=== PATIENT | male | born 1985 | race Caucasian/White ===

== ENCOUNTER 2020-10-19 22:28 | Emergency (ER) | payer MEDICAID, SELFPAY ==
[2020-10-19 22:33] VITALS: BP 134/57; PULSE 100; RESP 16; TEMP 36.7; O2SAT 98; BMI 64.0
--- NOTE | 2020-10-19 23:48 | ED.OVERDOSE ---
HPI - Overdose General Chief Complaint: Overdose Stated Complaint: OVERDOSE Time Seen by Provider: 10/19/20 23:46 Source: patient and EMS Mode of arrival: EMS Limitations: no limitations History of Present Illness HPI Narrative: Patient is brought to the emergency room for an accidental overdose. Patient was using heroin earlier today. Patient does doff, his friends panicked amd gave him Narcan. Patient woke up immediately. Patient was brought by EMS to the emergency room. Patient arrives awake, alert, calm and cooperative. Patient states it was an accident, denies suicidal homicidal ideation. complaint: accidental overdose Related Data Allergies Allergy/AdvReac Type Severity Reaction Status Date / Time No Known Allergies Allergy Unverified 02/01/20 19:18 [No Known Allergies*] Review of Systems Review of Systems: Constitutional : No Weight loss, No Fever, No Chills, No Night Sweats, No Fatigue, No Malaise ENT/Mouth : No Hearing loss, No Ear Pain, No Nasal Congestion, No Sinus Pain, No Hoarseness, No sore throat, No Rhinorrhea, No Swallowing Difficulty Eyes: No Eye Pain, No Swelling, No Redness, No Foreign Body, No Discharge, No Vision Changes Cardiovascular : No Chest Pain, No SOB, No Dyspnea on Exertion, No Orthopnea, No Edema, No Palpitations Respiratory : No Cough, No Sputum, No Wheezing, No Smoke Exposure, No Dyspnea Gastrointestinal : No Nausea, No Vomiting, No Diarrhea, No Constipation, No abdominal Pain, No Hematochezia, No Melena Genitourinary : no irregular bleeding, No Dysuria, No Urinary Frequency, No Hematuria, No Urinary Incontinence, No Urgency, No Flank Pain, No Urinary Flow Changes, No Hesitancy Musculoskeletal : No joint pain, No Myalgias, No Joint Swelling Skin : No Skin Lesions, No rash Neuro : No Weakness, No Numbness, No Paresthesias, No Loss of Consciousness, No Dizziness, No Headache Psych : No Anxiety/Panic, No Depression, No SI/HI/AH/VH, No Social Issues, Heme/Lymph: No Bruising, No Bleeding,No Lymphadenopathy Endocrine : No Polyuria, No Polydipsia, No Temperature Intolerance PMFSH Past Medical History Medical History IV drug user No known health problems Social History Social History Advance Directives: No Advance Directives Information Provided: No Physical Exam Vital Signs: Vital Signs: Last Vital Signs Temp 98.0 F 10/19/20 22:33 Pulse 100 10/19/20 22:33 Resp 16 10/19/20 22:33 BP 134/57 L 10/19/20 22:33 Pulse Ox 98 10/19/20 22:33 Body Mass Index 64.0 Appearance: Alert. Oriented X3. No acute distress. Eyes: Pupils equal, round and reactive to light. ENT: Pharynx normal. Neck: Normal inspection. Neck supple. No lymph nodes noted. No crepitus CVS: Normal heart rate and rhythm. Pulses normal. Normal S1 and S2 Respiratory: No respiratory distress. Breath sounds normal. No Wheezing. No rales Abdomen: Soft and nontender. No rigidity. No distention. good BS x4 Skin: Skin warm and dry. Normal skin color. Normal skin turgor. Extremities: No lower extremity edema. No lower extremity edema. No Lacerations. No Rash Neuro: Oriented X 3. No motor deficit. No sensory deficit. Moving all extermities. No slurred speech. Course Course Course Narrative: Patient has been in the emergency room awake, alert and oriented x3, steady gait, p.o. challenged, oxygen saturation 98% on room air, vital stable. Patient is ready for discharge. Patient was provided with home Narcan Discharge Plan Discharge Clinical Impression: Drug overdose Qualifiers: Encounter type: initial encounter Injury intent: accidental or unintentional Qualified Code(s): T50.901A - Poisoning by unspecified drugs, medicaments and biological substances, accidental (unintentional), initial encounter Patient Disposition: Home, Self-Care Instructions: Adult Overdose (ED) Additional Instructions: Please stop using drugs. Please follow-up with your primary care physician tomorrow. If you have any worsening or new symptoms, please return to the emergency room or call 911
== END 2020-10-20 00:08 | disposition home or self-care (01) ==
PROVIDERS: Emergency Provider Emergency Medicine; PCP Family Medicine
DX: T40.1X1A Poisoning by heroin, accidental (unintentional), initial encounter (principal); F11.10 Opioid abuse, uncomplicated; Y92.9 Unspecified place or not applicable; Z71.51 Drug abuse counseling and surveillance of drug abuser
CPT/HCPCS: 99284

== ENCOUNTER 2020-10-28 15:49 | Emergency (ER) | payer MEDICAID, SELFPAY ==
[2020-10-28 16:12] VITALS: BP 149/93; PULSE 93; RESP 20; TEMP 36.8; O2SAT 100; BMI 24.4
--- NOTE | 2020-10-28 17:32 | ED_ITS ---
HPI - Psych General Chief Complaint: Psychiatric Symptoms Stated Complaint: SI Time Seen by Provider: 10/28/20 17:11 Source: patient Mode of arrival: ambulatory Limitations: no limitations History of Present Illness HPI Narrative: Patient presetned to the ED for SI/homicidal ideation. Patient states he lost his psych meds and has been feeling down. Patient states his plan would be to overdose. Patient states he has no support outside of [facility]. Patient states he relapsed on drugs. Related Data Home Medications Medication Instructions Recorded Confirmed alprazolam 1 tab PO QID 10/28/20 10/28/20 buprenorphine-naloxone [Suboxone] 1 strip SUBLINGUAL BID 10/28/20 10/28/20 dextroamphetamine-amphetamine 1 tab PO BID 10/28/20 10/28/20 dextroamphetamine-amphetamine 1 cap PO DAILY 10/28/20 10/28/20 [Adderall XR] naproxen 1 tab PO BID PRN 10/28/20 10/28/20 Allergies Allergy/AdvReac Type Severity Reaction Status Date / Time No Known Allergies Allergy Unverified 02/01/20 19:18 [No Known Allergies*] Review of Systems Review of Systems: Yes all other systems are reviewed and are negative Constitutional: Constitutional: Reports as per HPI and Reports no additional constitutional complaints Eyes: Eyes: Reports as per HPI and Reports no additional eye complaints ENT: Reports system reviewed and no additional complaints, except as docu mented and Reports as per HPI Cardiovascular: Cardiovascular: Reports as per HPI and Reports no additional cardiovascular complaints Respiratory: Respiratory: Reports as per HPI and Reports no additional respiratory complaints Gastrointestinal: Gastrointestinal: Reports as per HPI and Reports no additional gastrointestinal complaints Genitourinary: Genitourinary: Reports no additional male genitourinary complaints and Reports as per HPI Musculoskeletal: Musculoskeletal: Reports no additional musculoskeletal complaints and Reports as per HPI Neurologic: Reports system reviewed and no additional complaints, except as documented and Reports as per HPI Psychiatric: Psychiatric: Reports no additional psychiatric complaints, Reports as per HPI and Reports suicidal ideation [facility] Past Medical History Medical History IV drug user No known health problems Social History Social History Alcohol intake: never Patient Tobacco Use Status: Current someday Tobacco user Smoked in Last 30 Days: Yes Use of substances other than those prescribed or required for medical reasons: Yes Substance Use Type: Heroin Substance Use Frequency: Chronic Longstanding Last Used Substance: Just Prior to Admission Advance Directives: No Advance Directives Information Provided: Yes Healthcare Proxy: No Guardian: No Physical Exam Vital Signs: Vital Signs: Last Vital Signs Temp 97.6 F 10/28/20 21:55 Pulse 75 10/28/20 21:55 Resp 16 10/29/20 00:41 BP 123/64 10/28/20 21:55 Pulse Ox 98 10/28/20 21:55 Body Mass Index 24.4 Const: General: cooperative, healthy appearing, comfortable, no acute distress, well developed, alert and awake Orientation/consciousness: patient oriented x3 HENMT: Head: Yes normal to inspection, Yes No palpable skull fracture present, Yes normocephalic and Yes atraumatic Eyes: General: appearance normal, both eyes and all related structures Neck: Neck: Yes normal visual inspection, Yes full ROM, Yes no lymphadenopathy, Yes no meningeal signs, Yes trachea midline, Yes supple and No tender Chest: Chest palpation & inspection: normal inspection of the chest and normal palpation of entire chest wall Resp: Effort & Inspection: normal respiratory effort and able to speak in complete sentences Auscultation: clear to auscultation bilaterally Cardio: Jugular venous distension: no JVD Heart sounds: S1 normal heart sound present and S2 normal heart sound present GI: Inspection: Yes normal to inspection and No abdominal wall ecchymosis Palpation (GI): Soft to palpation, not firm, nontender, no guarding and not rigid : General: No CVA tenderness and Yes no CVA tenderness Back/Spine/Pelvis: Back: no CVA tenderness, No CVA tenderness and No back tenderness Skin: General skin exam: no rashes or lesions noted and elasticity normal Neuro: General: patient oriented x3, no meningeal signs and CN's II-XI intact bilaterally Cranial nerves: Yes CN's II-XII intact bilaterally Extrem: General: Yes normal to inspection and Yes full ROM Psych: Appearance: grossly normal, well kempt and not disheveled Thought content: Suicidality present Course Course Course Narrative: Patient will have labs drawn and be evaluated by crisis Reevaluation(s) Reevaluation #1: Patient medically cleared. Patient will be bed search for psych inpatient. Time: 22:07 [facility] - Psych Lab Data Result diagrams: 10/28/20 17:52 10/28/20 17:52 Labs: Lab Results 10/28/20 10/28/20 10/28/20 Range/Units 17:52 17:52 17:52 WBC 12.1 H (4.8-10.8) X10*3/uL RBC 4.67 (4.60-5.80) X10*6/uL Hgb 13.8 L (14.0-18.0) g/dl Hct 42.3 (42-52) % MCV 90.6 (80-98) fL MCH 29.6 (27.0-33.0) pg MCHC 32.6 (31.0-36.0) g/dl RDW 12.3 (11.0-16.0) % Plt Count 289 (160-400) X10*3/uL MPV 9.8 (9.4-12.4) fL Immature Gran % (Auto) 0.4 (0.0-0.4) % Neut % (Auto) 80.4 H (45-73) % Lymph % (Auto) 10.7 L (20-40) % [place] % (Auto) 8.2 (2-11) % Eos % (Auto) 0.1 (0-4) % Baso % (Auto) 0.2 (0-2) % Lymph # (Auto) 1.3 (1.2-4.9) X10*3/uL [place] # (Auto) 1.0 (0.1-1.2) X10*3/uL Eos # (Auto) 0.0 (0.0-0.4) X10*3/uL Baso # (Auto) 0.0 (0.0-0.2) X10*3/uL Abs Immat Gran (auto) 0.05 H (0.00-0.03) X10*3/uL Absolute Neuts (auto) 9.7 H (2.0-8.3) X10*3/uL Absolute Nucleated RBC 0.000 (0.0-0.012) X10*3/uL Nucleated RBC % (auto) 0.0 (0.0-0.2) /100WBC Sodium 138 (135-145) mmol/L Potassium 3.7 (3.3-5.1) mmol/L Chloride 104 (96-108) mmol/L Carbon Dioxide 21 L (22-29) mmol/L Anion Gap 17 (12-20) BUN 10 (9-16) mg/dL Creatinine 0.93 (0.5-1.4) mg/dL Estim Creat Clear Calc 108.7 Estimated GFR > 60 Random Glucose 164 H (60-115) mg/dL Calcium 9.6 (8.4-10.2) mg/dL Total Bilirubin 1.0 (0.0-1.0) mg/dL Direct Bilirubin 0.4 (0.0-0.5) mg/dL AST 23 (5-37) U/L ALT 19 (0-40) U/L Alkaline Phosphatase 78 (39-117) U/L Total Protein 7.6 (6.5-8.0) g/dL Albumin 4.3 (3.5-5.0) g/dL Urine Color Urine Appearance Urine pH (5.0-8.0) Ur Specific [place] (1.005-1.025) Urine Protein (NEG-TRACE) MG/DL Urine Glucose (UA) (NEG) MG/DL Urine Ketones (NEG) MG/DL Urine Blood (NEG) Urine Nitrite (NEG) Ur Leukocyte Esterase (NEG) Urine Opiates Screen (Not Detect) Ur Barbiturates Screen (Not Detect) Ur Phencyclidine Scrn (Not Detect) Ur Amphetamines Screen (Not Detect) U Benzodiazepines Scrn (Not Detect) Urine Cocaine Screen (Not Detect) U Marijuana (THC) Screen (Not Detect) Ethyl Alcohol < 10 mg/dL COVID-19 (MADELEINE) (Negative) COVID-19 Clin Com 10/28/20 10/28/20 10/28/20 Range/Units 22:01 22:01 22:01 WBC (4.8-10.8) X10*3/uL RBC (4.60-5.80) X10*6/uL Hgb (14.0-18.0) g/dl Hct (42-52) % MCV (80-98) fL MCH (27.0-33.0) pg MCHC (31.0-36.0) g/dl RDW (11.0-16.0) % Plt Count (160-400) X10*3/uL MPV (9.4-12.4) fL Immature Gran % (Auto) (0.0-0.4) % Neut % (Auto) (45-73) % Lymph % (Auto) (20-40) % [place] % (Auto) (2-11) % Eos % (Auto) (0-4) % Baso % (Auto) (0-2) % Lymph # (Auto) (1.2-4.9) X10*3/uL [place] # (Auto) (0.1-1.2) X10*3/uL Eos # (Auto) (0.0-0.4) X10*3/uL Baso # (Auto) (0.0-0.2) X10*3/uL Abs Immat Gran (auto) (0.00-0.03) X10*3/uL Absolute Neuts (auto) (2.0-8.3) X10*3/uL Absolute Nucleated RBC (0.0-0.012) X10*3/uL Nucleated RBC % (auto) (0.0-0.2) /100WBC Sodium (135-145) mmol/L Potassium (3.3-5.1) mmol/L Chloride (96-108) mmol/L Carbon Dioxide (22-29) mmol/L Anion Gap (12-20) BUN (9-16) mg/dL Creatinine (0.5-1.4) mg/dL Estim Creat Clear Calc Estimated GFR Random Glucose (60-115) mg/dL Calcium (8.4-10.2) mg/dL Total Bilirubin (0.0-1.0) mg/dL Direct Bilirubin (0.0-0.5) mg/dL AST (5-37) U/L ALT (0-40) U/L Alkaline Phosphatase (39-117) U/L Total Protein (6.5-8.0) g/dL Albumin (3.5-5.0) g/dL Urine Color YELLOW Urine Appearance HAZY Urine pH 6.5 (5.0-8.0) Ur Specific [place] <= 1.005 (1.005-1.025) Urine Protein NEG (NEG-TRACE) MG/DL Urine Glucose (UA) NEG (NEG) MG/DL Urine Ketones NEG (NEG) MG/DL Urine Blood NEG (NEG) Urine Nitrite NEG (NEG) Ur Leukocyte Esterase NEG (NEG) Urine Opiates Screen POSITIVE H (Not Detect) Ur Barbiturates Screen Not Detected (Not Detect) Ur Phencyclidine Scrn Not Detected (Not Detect) Ur Amphetamines Screen Not Detected (Not Detect) U Benzodiazepines Scrn Not Detected (Not Detect) Urine Cocaine Screen POSITIVE H (Not Detect) U Marijuana (THC) Screen Not Detected (Not Detect) Ethyl Alcohol mg/dL COVID-19 (MADELEINE) Negative (Negative) COVID-19 Clin Com See Note Discharge Plan Discharge Prescriptions: No Action alprazolam 1 mg tablet 1 tab PO QID RF: 0 dextroamphetamine-amphetamine 30 mg tablet 1 tab PO BID RF: 0 dextroamphetamine-amphetamine [Adderall XR] 30 mg capsule,extended release 24hr 1 cap PO DAILY RF: 0 naproxen 500 mg tablet 1 tab PO BID PRN (Reason: Pain) RF: 0 buprenorphine-naloxone [Suboxone] 12-3 mg film 1 strip sublingual BID RF: 0
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
[2020-10-28 17:57] LABS: MANUAL DIFF FLAG NO
[2020-10-28 18:24] LABS: Basophils Percent Auto 0.2 % (0-2); Eosinophils Percent Auto 0.1 % (0-4); Hematocrit 42.3 % (42-52); Hemoglobin 13.8 g/dl (14.0-18.0); Imm Gran Abs Auto 0.05 X10*3/uL (0.00-0.03); Imm Gran Pct Auto 0.4 % (0.0-0.4); Lymphocytes Absolute Auto 1.3 X10*3/uL (1.2-4.9); Lymphocytes Percent Auto 10.7 % (20-40); Mean Corpuscular HGB Conc 32.6 g/dl (31.0-36.0); Mean Corpuscular Hemoglobin 29.6 pg (27.0-33.0); Mean Corpuscular Volume 90.6 fL (80-98); Mean Platelet Volume 9.8 fL (9.4-12.4); Monocytes Percent Auto 8.2 % (2-11); Neutrophils Absolute Auto 9.7 X10*3/uL (2.0-8.3); Neutrophils Percent Auto 80.4 % (45-73); Platelet Count 289 X10*3/uL (160-400); Red Blood Count 4.67 X10*6/uL (4.60-5.80); Red Cell Distribution Width 12.3 % (11.0-16.0); White Blood Count 12.1 X10*3/uL (4.8-10.8)
[2020-10-28 18:31] LABS: Ethanol < 10 mg/dL
[2020-10-28 18:37] LABS: Alanine Aminotransferase 19 U/L (0-40); Albumin Level 4.3 g/dL (3.5-5.0); Alkaline Phosphatase 78 U/L (39-117); Anion Gap 17 (12-20); Aspartate Amino Transferase 23 U/L (5-37); Bilirubin Direct 0.4 mg/dL (0.0-0.5); Blood Urea Nitrogen 10 mg/dL (9-16); Calcium 9.6 mg/dL (8.4-10.2); Carbon Dioxide 21 mmol/L (22-29); Chloride 104 mmol/L (96-108); Creatinine Clr Calc Pharmacy 108.7; Estimated Glomerular Filt Rate > 60; Glucose Random 164 mg/dL (60-115); Potassium 3.7 mmol/L (3.3-5.1); Sodium 138 mmol/L (135-145); Total Protein 7.6 g/dL (6.5-8.0)
[2020-10-28 21:55] VITALS: BP 123/64; PULSE 75; RESP 16; TEMP 36.4; O2SAT 98
[2020-10-28 22:27] LABS: COVID-19 Test Negative (Negative)
[2020-10-28 22:29] LABS: Glucose Urine UA NEG (NEG); Leukocyte Esterase Urine NEG (NEG); Nitrite Urine NEG (NEG); PH 6.5 (5.0-8.0); Specific Gravity - Urine <= 1.005 (1.005-1.025); Urine Blood NEG (NEG); Urine Ketones NEG (NEG); Urine Protein NEG (NEG-TRACE)
[2020-10-28 22:30] LABS: Appearance Urine HAZY; Color Urine YELLOW
--- NOTE | 2020-10-28 22:31 | MHC.CARE ---
Evaluation completed by CARE team, plan will be for inpt psychiatric placement. Pt is agreeable for treatment at this time, however due to his level of risk for harm to self he has been placed on a Sect 12a for containment pending psychiatric admission. Pt will presented for possible admission to [facility] inpt units in the morning.
--- NOTE | 2020-10-28 22:39 | PC.NURSE ---
PATIENT MEETING WITH CARE TEAM ZACH, PATIENT AGREEABLE FOR INPATIENT PSYCH PLACEMENT. SITTER CLOSE TO PATIENT DUE TO SELF HARM RISK.
[2020-10-28 22:57] LABS: Amphetamine Screen Urine Not Detected (Not Detect); Barbiturates, Urine Not Detected (Not Detect); Benzodiazepines Screen Urine Not Detected (Not Detect); Cannabinoid Screen Urine Not Detected (Not Detect); Cocaine Screen Urine POSITIVE (Not Detect); Opiate Screen Urine POSITIVE (Not Detect); Phencyclidine Screen Urine Not Detected (Not Detect)
[2020-10-28] MEDS: Ibuprofen 800 MG TABLET PO (23:09)
[2020-10-29] VITALS: RESP 16
[2020-10-29 00:41] VITALS: RESP 16
[2020-10-29] MEDS: ALPRAZolam 0.5 MG TABLET 1 MG PO ×3 (01:49→13:14)
--- NOTE | 2020-10-29 02:07 | PC.NURSE ---
PATIENT REPORTING ANXIETY ASKING FOR A XANAX, MOVED TO ROOM 8 FOR PATIENT TO BE ABLE TO SLEEP. SITTER CLOSE FOR OBSERVATION OF THE PATIENT
[2020-10-29] MEDS: diphenhydrAMINE HCL 25 MG TABLET PO (02:49)
[2020-10-29] MEDS: Buprenorphine HCL 8 MG TAB.SUBL SUBLINGUAL ×2 (02:49→10:56)
[2020-10-29 06:00] VITALS: RESP 16
[2020-10-29 07:21] VITALS: BP 125/80; PULSE 75; RESP 18; TEMP 36.9; O2SAT 100
--- NOTE | 2020-10-29 07:24 | PC.NURSE ---
PT CALM AND COOPERATIVE, RESTING ON STRETCHER. ATE BREAKFAST. NEEDS BEING MET, CONSTANT OBERVATION BY SITTER
[2020-10-29] MEDS: NaPROXEN 500 MG TABLET PO (10:56)
[2020-10-29] MEDS: Amphetamine Mixed Salts 10 MG TABLET 30 MG PO (10:56)
[2020-10-29 13:16] VITALS: BP 137/81; PULSE 73
--- NOTE | 2020-10-29 14:26 | PC.NURSE ---
PT TRANS TO [facility] DETOX VIA AMB REPORT GIVEN
== END 2020-10-29 14:45 | disposition home or self-care (01) ==
PROVIDERS: Physician Assistant; Emergency Provider Internal Medicine; PCP Family Medicine
DX: R45.851 Suicidal ideations (principal); Z79.899 Other long term (current) drug therapy; Z20.822 Contact with and (suspected) exposure to COVID-19
CPT/HCPCS: 36415; 80053; 80076; 80307; 81003; 82077; 82248; 85025; 87635; 99285; J0571; Q0163

== ENCOUNTER 2020-11-16 11:31 | Emergency (ER) | payer MEDICAID, SELFPAY ==
[2020-11-16 11:53] VITALS: BMI 52.0
--- NOTE | 2020-11-16 11:56 | ECG_ITS ---
Test Reason : MEDICAL CLEARANCE Blood Pressure : / mmHG Vent. Rate : 064 BPM Atrial Rate : 064 BPM P-R Int : 154 ms QRS Dur : 094 ms QT Int : 408 ms P-R-T Axes : 020 016 030 degrees QTc Int : 420 ms Normal sinus rhythm Incomplete right bundle branch block Borderline ECG No previous ECGs available Referred By: Rocio Hugo Electronically Signed By:MATT AGUILAR MD
[2020-11-16 13:03] LABS: MANUAL DIFF FLAG NO
[2020-11-16 13:04] LABS: Basophils Percent Auto 0.2 % (0-2); Eosinophils Percent Auto 0.2 % (0-4); Hematocrit 36.1 % (42-52); Hemoglobin 11.8 g/dl (14.0-18.0); Imm Gran Abs Auto 0.03 X10*3/uL (0.00-0.03); Imm Gran Pct Auto 0.3 % (0.0-0.4); Lymphocytes Absolute Auto 1.5 X10*3/uL (1.2-4.9); Lymphocytes Percent Auto 15.4 % (20-40); Mean Corpuscular HGB Conc 32.7 g/dl (31.0-36.0); Mean Corpuscular Hemoglobin 29.3 pg (27.0-33.0); Mean Corpuscular Volume 89.6 fL (80-98); Mean Platelet Volume 8.6 fL (9.4-12.4); Monocytes Percent Auto 10.5 % (2-11); Neutrophils Percent Auto 73.4 % (45-73); Platelet Count 278 X10*3/uL (160-400); Red Blood Count 4.03 X10*6/uL (4.60-5.80); Red Cell Distribution Width 13.2 % (11.0-16.0); White Blood Count 9.5 X10*3/uL (4.8-10.8)
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
[2020-11-16 13:18] LABS: INTERNATIONAL NORM RATIO 1.2 (0.9-1.1); Prothrombin Time 13.2 SEC (9.9-13.0)
[2020-11-16 13:22] VITALS: BP 111/70; PULSE 80; RESP 16; TEMP 36.8; O2SAT 99
[2020-11-16 13:41] LABS: Magnesium 1.9 mg/dL (1.6-2.6)
[2020-11-16 13:43] LABS: Alanine Aminotransferase 34 U/L (0-40); Alkaline Phosphatase 87 U/L (39-117); Anion Gap 15 (12-20); Aspartate Amino Transferase 19 U/L (5-37); Bilirubin Total 0.6 mg/dL (0.0-1.0); Blood Urea Nitrogen 10 mg/dL (9-16); Calcium 9.2 mg/dL (8.4-10.2); Carbon Dioxide 22 mmol/L (22-29); Chloride 104 mmol/L (96-108); Creatinine Clr Calc Pharmacy 163.6; Estimated Glomerular Filt Rate > 60; Ethanol < 10 mg/dL; Glucose Random 100 mg/dL (60-115); Lipase 12 U/L (8-78); Potassium 4.1 mmol/L (3.3-5.1); Sodium 137 mmol/L (135-145); Total Protein 6.9 g/dL (6.5-8.0)
--- NOTE | 2020-11-16 14:04 | ED_ITS ---
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 Reports that he is currently homeless has no family around. Denies any other drug usage. Denies any alcohol usage. Denies any auditory Or visual hallucinations. Denies any fevers, dizziness, headaches, change in vision, nausea / vomiting, sore throat, cough, chest pain, shortness of breath, nausea/ vomiting /diarrhea / constipation, abdominal pain, back pain, dysuria, hematuria, rashes or any other symptoms complaints or con cerns at this time. MD complaint: suicidal ideation, feels depressed, anxiety and substance abuse Onset (ago): day(s) Duration: constant and getting worse History of same: Yes Relieving factors: none Exacerbating factors: drug use Context: recent drug abuse and significant life stressor ( homeless) Associated psychiatric symptoms: none Associated symptoms: denies other symptoms Treatments prior to arrival: none If self harm: admits thoughts of self harm and has plan ( to overdose) Related Data Home Medications Medication Instructions Recorded Confirmed alprazolam 1 tab PO QID 11/16/20 11/16/20 aripiprazole 1 tab PO DAILY 11/16/20 11/16/20 buprenorphine-naloxone [Suboxone] 1 strip SUBLINGUAL BID 11/16/20 11/16/20 dextroamphetamine-amphetamine 1 tab PO BID 11/16/20 11/16/20 dextroamphetamine-amphetamine 1 cap PO DAILY 11/16/20 11/16/20 [Adderall XR] divalproex 1 tab PO BID 11/16/20 11/16/20 fluoxetine 2 cap PO DAILY 11/16/20 11/16/20 ibuprofen 1 tab PO TID PRN 11/16/20 11/16/20 oxcarbazepine 1 tab PO BID 11/16/20 11/16/20 prazosin 2 cap PO BEDTIME 11/16/20 11/16/20 trazodone 1 - 2 tab PO BEDTIME PRN 11/16/20 11/16/20 Allergies Allergy/AdvReac Type Severity Reaction Status Date / Time No Known Allergies Allergy Verified 11/16/20 11:51 [No Known Allergies*] Review of Systems Review of Systems: Constitutional : No Fever, No Chills ENT/Mouth : No Ear Pain, No Nasal Congestion, No sore throat Eyes: No Eye Pain, No Swelling, No Redness Cardiovascular : No Chest Pain, No SOB Respiratory : No Cough, No Sputum, No Dyspnea Gastrointestinal : No ingestions, No Nausea, No Vomiting, No Diarrhea, No Abdullahi tochezia, No Melena Genitourinary : No Dysuria, No Urinary Frequency, No Hematuria Musculoskeletal : No Myalgias Skin : No Skin Lesions, No rash Neuro : No Weakness, No Numbness, No Paresthesias, No Dizziness, No Headache Psych : + Anxiety, + Depression, + SI, + thoughts of self injury, No HI, No AVH, Heme/Lymph: No Lymphadenopathy Endocrine : No Polyuria, No Polydipsia Yes all other systems are reviewed and are negative [facility] Past Medical History Attestation statement: The following information was validated with the patient. Medical History ADHD Anxiety Depression IV drug user No known health problems Social History Social History Alcohol intake: unknown Patient Tobacco Use Status: Current someday Tobacco user Smoked in Last 30 Days: Yes Use of substances other than those prescribed or required for medical reasons: Yes Substance Use Type: Amphetamines, Crack/Cocaine, Heroin, IV Drugs, Opiates, Painkillers and Prescription Drugs Substance Use Frequency: Chronic Longstanding Last Used Substance: Just Prior to Admission Any prior treatment program specific to substance use: Yes Advance Directives: No Advance Directives Information Provided: Yes Physical Exam Vital Signs: Vital Signs: Last Vital Signs Temp 98.2 F 11/16/20 13:22 Pulse 80 11/16/20 13:22 Resp 16 11/16/20 13:22 BP 111/70 11/16/20 13:22 Pulse Ox 99 11/16/20 13:22 Body Mass Index 52.0 vital signs have been reviewed as normal and appeared to be correct. Blood pressure normal. Heart rate normal. Respiration rate normal. Temperature normal. Oxygen saturation normal. Appearance: Alert. Oriented X3. No acute distress. Head: Normal external exam. Normocephalic. Atraumatic. No Delgado signs noted. No raccoon eyes noted Eyes: PERRLA. EOMI. Conjunctiva and sclera normal. Eyelids normal. ENT: EAC normal. TM's Normal. Pharynx normal. Uvula midline. Moist mucous membranes. No trismus noted. No drooling noted. No muffled voice noted. Neck: Normal inspection. Neck supple. FROM. No adenopathy. Thyroid Normal. No meningeal signs. No neck mass noted. CVS: Normal heart rate and rhythm. Heart sound normal. No murmurs noted. Pulses normal throughout. Respiratory: No respiratory distress. Painless inspiration. Breath sounds normal. No wheezes/rales/rhonchi noted. Chest nontender. No accessory muscle usage noted or decreased air movement noted. Abdomen: Soft and nontender. Bowel sounds normal in all 4 quadrants. No distention noted. No organomegaly noted. No visible injury noted. Back: No CVA tenderness. Full range of motion noted. Skin: Skin warm and dry. Normal skin color. Normal skin turgor. No rashes/lesions/lacerations noted. Extremities: No lower extremity edema. Extremities exhibit normal range of motion. Extremities nontender. Neuro: Oriented X 3. No motor deficit. No sensory deficit. Reflexes normal. Psych: Appearance grossly normal, well-kept, mental status normal, speech and movement normal, speech clear, patient appears very sad and anxious along with depressed. Is cooperative. Normal thought process. Normal thought content. Normal good insight. Judgment good. Course Course Course Narrative: 11:55am - 35-year-old male who is an IV drug user of cocaine and heroin, anxiety, depression and ADHD presenting to the ED with complaints of increased anxiety/depression with SI thoughts to overdose on heroin and cocaine for the past few weeks worse today. Reports that he is currently homeless has no family around. Plan: Labs, EKG for medical clearance and re-evaluate. Reevaluation(s) Reevaluation #1: - Labs returned patient mild anemia. Otherwise all other labs are within normal limits. ETOH level negative. Patient negative for COVID. EKG is normal sinus rhythm with a ventricular rate of 64 with incomplete right bundle-branch block no acute ischemic changes are noted. - Therefore physician observation was started at this time because the patient needs more time to be evaluated by [facility] for possible inpatient psychiatric rehabilitation. At this time patient remains neuro intact no focal neuro deficits are noted. Lungs clear to auscultation. CV RRR. Abdomen is soft and nontender. Will continue to monitor. Time: 14:04 Reevaluation #2: - patient was evaluated by N and they are recommending detox . Patient will stay here until they can find a detox program due to patient does endorse SI to overdose. Therefore physician observation will be continued due to patient is awaiting a detox bed with N. Patient continues to be neuro intact. No focal neural deficits are noted. Lungs clear to auscultation. CV RRR. Abdomen is soft nontender. Will continue to monitor. Time: 16:29 [facility] - Psych Medical Records Attestation: I reviewed the patient's medical records. Lab Data Attestation: I reviewed the patient's lab results. Result diagrams: 11/16/20 12:55 11/16/20 12:55 Labs: Lab Results 11/16/20 11/16/20 11/16/20 Range/Units 12:55 12:55 12:55 WBC 9.5 (4.8-10.8) X10*3/uL RBC 4.03 L (4.60-5.80) X10*6/uL Hgb 11.8 L (14.0-18.0) g/dl Hct 36.1 L (42-52) % MCV 89.6 (80-98) fL MCH 29.3 (27.0-33.0) pg MCHC 32.7 (31.0-36.0) g/dl RDW 13.2 (11.0-16.0) % Plt Count 278 (160-400) X10*3/uL MPV 8.6 L (9.4-12.4) fL Immature Gran % (Auto) 0.3 (0.0-0.4) % Neut % (Auto) 73.4 H (45-73) % Lymph % (Auto) 15.4 L (20-40) % Geary % (Auto) 10.5 (2-11) % Eos % (Auto) 0.2 (0-4) % Baso % (Auto) 0.2 (0-2) % Lymph # (Auto) 1.5 (1.2-4.9) X10*3/uL Geary # (Auto) 1.0 (0.1-1.2) X10*3/uL Eos # (Auto) 0.0 (0.0-0.4) X10*3/uL Baso # (Auto) 0.0 (0.0-0.2) X10*3/uL Abs Immat Gran (auto) 0.03 (0.00-0.03) X10*3/uL Absolute Neuts (auto) 7.0 (2.0-8.3) X10*3/uL Absolute Nucleated RBC 0.000 (0.0-0.012) X10*3/uL Nucleated RBC % (auto) 0.0 (0.0-0.2) /100WBC PT 13.2 H (9.9-13.0) SEC INR 1.2 H (0.9-1.1) Sodium (135-145) mmol/L Potassium (3.3-5.1) mmol/L Chloride (96-108) mmol/L Carbon Dioxide (22-29) mmol/L Anion Gap (12-20) BUN (9-16) mg/dL Creatinine (0.5-1.4) mg/dL Estim Creat Clear Calc Estimated GFR Random Glucose (60-115) mg/dL Calcium (8.4-10.2) mg/dL Magnesium 1.9 (1.6-2.6) mg/dL Total Bilirubin (0.0-1.0) mg/dL AST (5-37) U/L ALT (0-40) U/L Alkaline Phosphatase (39-117) U/L Total Protein (6.5-8.0) g/dL Albumin (3.5-5.0) g/dL Lipase (8-78) U/L Urine Color Urine Appearance Urine pH (5.0-8.0) Ur Specific [place] (1.005-1.025) Urine Protein (NEG-TRACE) MG/DL Urine Glucose (UA) (NEG) MG/DL Urine Ketones (NEG) MG/DL Urine Blood (NEG) Urine Nitrite (NEG) Ur Leukocyte Esterase (NEG) Ethyl Alcohol mg/dL COVID-19 (MADELEINE) (Negative) COVID-19 Clin Com 0711/16/20 11/16/20 Range/Units 12:55 12:55 14:14 WBC (4.8-10.8) X10*3/uL RBC (4.60-5.80) X10*6/uL Hgb (14.0-18.0) g/dl Hct (42-52) % MCV (80-98) fL MCH (27.0-33.0) pg MCHC (31.0-36.0) g/dl RDW (11.0-16.0) % Plt Count (160-400) X10*3/uL MPV (9.4-12.4) fL Immature Gran % (Auto) (0.0-0.4) % Neut % (Auto) (45-73) % Lymph % (Auto) (20-40) % Geary % (Auto) (2-11) % Eos % (Auto) (0-4) % Baso % (Auto) (0-2) % Lymph # (Auto) (1.2-4.9) X10*3/uL Geary # (Auto) (0.1-1.2) X10*3/uL Eos # (Auto) (0.0-0.4) X10*3/uL Baso # (Auto) (0.0-0.2) X10*3/uL Abs Immat Gran (auto) (0.00-0.03) X10*3/uL Absolute Neuts (auto) (2.0-8.3) X10*3/uL Absolute Nucleated RBC (0.0-0.012) X10*3/uL Nucleated RBC % (auto) (0.0-0.2) /100WBC PT (9.9-13.0) SEC INR (0.9-1.1) Sodium 137 (135-145) mmol/L Potassium 4.1 (3.3-5.1) mmol/L Chloride 104 (96-108) mmol/L Carbon Dioxide 22 (22-29) mmol/L Anion Gap 15 (12-20) BUN 10 (9-16) mg/dL Creatinine 0.93 (0.5-1.4) mg/dL Estim Creat Clear Calc 163.6 Estimated GFR > 60 Random Glucose 100 D (60-115) mg/dL Calcium 9.2 (8.4-10.2) mg/dL Magnesium (1.6-2.6) mg/dL Total Bilirubin 0.6 (0.0-1.0) mg/dL AST 19 (5-37) U/L ALT 34 (0-40) U/L Alkaline Phosphatase 87 (39-117) U/L Total Protein 6.9 (6.5-8.0) g/dL Albumin 4.0 (3.5-5.0) g/dL Lipase 12 (8-78) U/L Urine Color Urine Appearance Urine pH (5.0-8.0) Ur Specific [place] (1.005-1.025) Urine Protein (NEG-TRACE) MG/DL Urine Glucose (UA) (NEG) MG/DL Urine Ketones (NEG) MG/DL Urine Blood (NEG) Urine Nitrite (NEG) Ur Leukocyte Esterase (NEG) Ethyl Alcohol < 10 mg/dL COVID-19 (MADELEINE) Negative (Negative) COVID-19 Clin Com See Note 11/16/20 Range/Units 16:07 WBC (4.8-10.8) X10*3/uL RBC (4.60-5.80) X10*6/uL Hgb (14.0-18.0) g/dl Hct (42-52) % MCV (80-98) fL MCH (27.0-33.0) pg MCHC (31.0-36.0) g/dl RDW (11.0-16.0) % Plt Count (160-400) X10*3/uL MPV (9.4-12.4) fL Immature Gran % (Auto) (0.0-0.4) % Neut % (Auto) (45-73) % Lymph % (Auto) (20-40) % Geary % (Auto) (2-11) % Eos % (Auto) (0-4) % Baso % (Auto) (0-2) % Lymph # (Auto) (1.2-4.9) X10*3/uL Geary # (Auto) (0.1-1.2) X10*3/uL Eos # (Auto) (0.0-0.4) X10*3/uL Baso # (Auto) (0.0-0.2) X10*3/uL Abs Immat Gran (auto) (0.00-0.03) X10*3/uL Absolute Neuts (auto) (2.0-8.3) X10*3/uL Absolute Nucleated RBC (0.0-0.012) X10*3/uL Nucleated RBC % (auto) (0.0-0.2) /100WBC PT (9.9-13.0) SEC INR (0.9-1.1) Sodium (135-145) mmol/L Potassium (3.3-5.1) mmol/L Chloride (96-108) mmol/L Carbon Dioxide (22-29) mmol/L Anion Gap (12-20) BUN (9-16) mg/dL Creatinine (0.5-1.4) mg/dL Estim Creat Clear Calc Estimated GFR Random Glucose (60-115) mg/dL Calcium (8.4-10.2) mg/dL Magnesium (1.6-2.6) mg/dL Total Bilirubin (0.0-1.0) mg/dL AST (5-37) U/L ALT (0-40) U/L Alkaline Phosphatase (39-117) U/L Total Protein (6.5-8.0) g/dL Albumin (3.5-5.0) g/dL Lipase (8-78) U/L Urine Color YELLOW Urine Appearance CLEAR Urine pH 6.0 (5.0-8.0) Ur Specific [place] 1.010 (1.005-1.025) Urine Protein NEG (NEG-TRACE) MG/DL Urine Glucose (UA) NEG (NEG) MG/DL Urine Ketones NEG (NEG) MG/DL Urine Blood NEG (NEG) Urine Nitrite NEG (NEG) Ur Leukocyte Esterase NEG (NEG) Ethyl Alcohol mg/dL COVID-19 (MADELEINE) (Negative) COVID-19 Clin Com ECG Data Attestation: I personally reviewed and interpreted this ECG as follows: ECG interpretation date: 11/16/20 ECG interpretation time: 13:18 Interpretation: EKG is normal sinus rhythm with a ventricular rate of 64 with incomplete right bundle-branch block no acute ischemic changes are noted. Discharge Plan Discharge Clinical Impression: IV drug user, Anxiety, Depression, Suicidal ideation Prescriptions: No Action trazodone 50 mg tablet 1 - 2 tab PO BEDTIME PRN (Reason: Sleep) RF: 0 alprazolam 1 mg tablet 1 tab PO QID RF: 0 prazosin 5 mg capsule 2 cap PO BEDTIME RF: 0 divalproex 500 mg tablet extended release 24 hr 1 tab PO BID RF: 0 oxcarbazepine 600 mg tablet 1 tab PO BID RF: 0 dextroamphetamine-amphetamine [Adderall XR] 30 mg capsule,extended release 24hr 1 cap PO DAILY RF: 0 fluoxetine 20 mg capsule 2 cap PO DAILY RF: 0 aripiprazole 20 mg tablet 1 tab PO DAILY RF: 0 buprenorphine-naloxone [Suboxone] 12-3 mg film 1 strip sublingual BID RF: 0 ibuprofen 800 mg tablet 1 tab PO TID PRN (Reason: Pain) RF: 0 dextroamphetamine-amphetamine 30 mg tablet 1 tab PO BID RF: 0
[2020-11-16 14:37] LABS: COVID-19 Test Negative (Negative)
--- NOTE | 2020-11-16 14:54 | PC.NURSE ---
pt sleeping, information has been sent to [facility] for Patient eval
--- NOTE | 2020-11-16 16:17 | PC.NURSE ---
pt has been seen by Kait, he was able to provide urine sample.
[2020-11-16 16:25] LABS: Glucose Urine UA NEG (NEG); Leukocyte Esterase Urine NEG (NEG); Nitrite Urine NEG (NEG); Urine Blood NEG (NEG); Urine Ketones NEG (NEG); Urine Protein NEG (NEG-TRACE)
[2020-11-16 16:27] LABS: Appearance Urine CLEAR; Color Urine YELLOW
[2020-11-16 16:37] LABS: Amphetamine Screen Urine Not Detected (Not Detect); Barbiturates, Urine Not Detected (Not Detect); Benzodiazepines Screen Urine Not Detected (Not Detect); Cannabinoid Screen Urine POSITIVE (Not Detect); Cocaine Screen Urine POSITIVE (Not Detect); Opiate Screen Urine POSITIVE (Not Detect); Phencyclidine Screen Urine Not Detected (Not Detect)
--- NOTE | 2020-11-16 19:53 | PC.NURSE ---
Patient in bed appears sleeping, Kait called and spoke with Trinidad to confirm patient's disposition, N notified that patient is voluntary dual bed search, will continue to monitor.
[2020-11-16 19:58] VITALS: BP 110/65; PULSE 70; RESP 18; TEMP 36.9; O2SAT 97
[2020-11-16 23:34] VITALS: BP 123/76; PULSE 68; RESP 18; TEMP 36.9; O2SAT 96
--- NOTE | 2020-11-17 06:30 | PC.NURSE ---
Patient slept through the night, patient was up x 2 for bathroom use and back. no distress observed/reported, med recs completed/pending provider's approval, will continue to monitor.
--- NOTE | 2020-11-17 07:07 | PC.NURSE ---
patient appears to remain at rest appears in no distress, respirations are even and unlabored.
[2020-11-17 09:31] VITALS: BP 131/86; PULSE 73; RESP 17; TEMP 36.7; O2SAT 99
[2020-11-17 11:20] LABS: Valproate < 2.0 mcg/mL (50.0-100.0)
[2020-11-17] MEDS: Buprenorphine/Naloxone 12/3 mg FILM 1 FILM SUBLINGUAL ×2 (14:42→21:13)
[2020-11-17] MEDS: Divalproex Sodium ER 500 MG TAB.ER.24H PO ×2 (14:43→21:12)
[2020-11-17] MEDS: OXcarbazepine 300 MG TABLET 600 MG PO ×2 (14:43→21:13)
[2020-11-17] MEDS: FLUoxetine HCl 20 MG CAPSULE 40 MG PO (14:43)
[2020-11-17] MEDS: ARIPiprazole 20 MG TABLET PO (15:52)
[2020-11-17] MEDS: ALPRAZolam 0.5 MG TABLET 1 MG PO ×2 (16:00→21:13)
[2020-11-17 16:59] VITALS: BP 125/85; PULSE 77; RESP 18; TEMP 36.7; O2SAT 99
[2020-11-17 21:12] VITALS: BP 140/88; PULSE 77
[2020-11-17] MEDS: Prazosin HCL 5 MG CAPSULE 10 MG PO (21:12)
[2020-11-17] MEDS: traZODone HCL 50 MG TABLET PO (21:12)
[2020-11-18 00:26] VITALS: BP 126/76; PULSE 87; RESP 18; TEMP 36.6; O2SAT 98
--- NOTE | 2020-11-18 07:37 | PC.NURSE ---
Report received from Lucas HATFIELD, Pt's parent coach in to pod with some belongings for pt, belongings inventoried by staff and placed to locker.
[2020-11-18 07:52] VITALS: BP 124/76; PULSE 88; RESP 17; TEMP 36.7; O2SAT 99
[2020-11-18] MEDS: FLUoxetine HCl 20 MG CAPSULE 40 MG PO (08:19)
[2020-11-18] MEDS: ALPRAZolam 0.5 MG TABLET 1 MG PO ×3 (08:19→20:11)
[2020-11-18] MEDS: Amphetamine Mixed Salts 10 MG TABLET 30 MG PO ×2 (08:20→15:07)
[2020-11-18] MEDS: Buprenorphine/Naloxone 12/3 mg FILM 1 FILM SUBLINGUAL ×2 (08:20→20:11)
[2020-11-18] MEDS: OXcarbazepine 300 MG TABLET 600 MG PO ×2 (08:20→20:11)
[2020-11-18] MEDS: Divalproex Sodium ER 500 MG TAB.ER.24H PO ×2 (08:20→20:11)
[2020-11-18] MEDS: ARIPiprazole 20 MG TABLET PO (08:32)
--- NOTE | 2020-11-18 09:48 | MHC.RECOVSUP ---
Recovery Support note: This proposal manager writer contacted [facility] to inquire on the status of this patient's bedsearch. [facility] reports that they are not bedsearching this patient. [facility] faxed patient evaluation that was completed on 11/16. This proposal manager writer conducted a dual-diagnosis bedsearch. [facility] - [phone] - No beds [facility] - [phone] - No beds - patient information faxed to be placed on waitlist [facility] - [phone] - No beds - patient information faxed to be placed on waitlist [facility] - [phone] - No beds This proposal manager writer met with patient to update him on bedsearch. Patient reports he has been taking his medications and is feeling good however he is still committed to getting into treatment. Patient continues to report a desire to go to [facility]. This proposal manager writer explained to patient that he has been referred to [facility]. Discussed case with CARE Team.
[2020-11-18 14:25] VITALS: RESP 15
[2020-11-18 20:11] VITALS: BP 136/85; PULSE 80
[2020-11-18] MEDS: Prazosin HCL 5 MG CAPSULE 10 MG PO (20:11)
[2020-11-18] MEDS: traZODone HCL 50 MG TABLET PO (20:11)
[2020-11-18 20:18] VITALS: BP 135/86; PULSE 80
[2020-11-18 22:34] VITALS: BP 133/81; PULSE 73; TEMP 36.6; O2SAT 98
[2020-11-19 04:03] VITALS: BP 112/70; PULSE 76; RESP 16; TEMP 36.8; O2SAT 96
--- NOTE | 2020-11-19 06:33 | PC.NURSE ---
Patient slept through the night, up x 2 for bathroom use and back, compliant with his 0700 adderall, [id number] distress, mood pleasant, will continue to monitor.
[2020-11-19] MEDS: OXcarbazepine 300 MG TABLET 600 MG PO ×2 (08:12→20:19)
[2020-11-19] MEDS: Divalproex Sodium ER 500 MG TAB.ER.24H PO ×2 (08:12→20:19)
[2020-11-19] MEDS: Buprenorphine/Naloxone 12/3 mg FILM 1 FILM SUBLINGUAL ×2 (08:13→20:19)
[2020-11-19] MEDS: FLUoxetine HCl 20 MG CAPSULE 40 MG PO (08:13)
[2020-11-19] MEDS: Amphetamine Mixed Salts 10 MG TABLET 30 MG PO ×2 (08:13→14:38)
[2020-11-19] MEDS: ALPRAZolam 0.5 MG TABLET 1 MG PO ×4 (08:13→20:19)
[2020-11-19] MEDS: ARIPiprazole 20 MG TABLET PO (08:23)
[2020-11-19 08:37] VITALS: BP 126/76; PULSE 100; RESP 19; TEMP 36.5; O2SAT 98
[2020-11-19 14:00] VITALS: RESP 16
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
--- NOTE | 2020-11-19 16:28 | MHC.CARE ---
Addendum entered by Sandra Presley, [facility] 11/19/20 16:45: Consulted w/ Mounika Bradley, who recommends psych consult. Original Note: Pt will be seen by Mounika Walton in the morning, as pt has lost all of his medications and this is a barrier to getting pt into tx.
--- NOTE | 2020-11-19 17:47 | MHC.RECOVSUP ---
? Reason for consult Recovery Support o Current location: [facility] o Identified substance use concern: - Seeking ATS (detox) - Support ? Intervention: o <del>ATS</del> <del>bed</del> <del>search</del> <del>started/completed/in</del> <del>process</del> <del>o</del> <del>MAT</del> <del>started</del> <del>or</del> <del>to</del> <del>be</del> <del>started</del> o Community resources provided o Harm reduction discussion ? Plan: o <del>Referral</del> <del>to</del> <del>[facility]</del> <del>o</del> <del>Bed</del> <del>search</del> <del>in</del> <del>progress</del> <del>to</del> <del>o</del> <del>Follow</del> <del>up</del> <del>tomorrow</del> o Patient awaiting crisis evaluation o Patient to follow up with [facility] after discharge ? Additional information: Follow up with Patient and his goals.. After a Follow up call to [facility] I was told by intake that Patient has a strong chance.. Patient has a student success coach and is on MAT.
[2020-11-19] MEDS: traZODone HCL 50 MG TABLET PO (20:19)
[2020-11-19 20:23] VITALS: BP 125/88; PULSE 80; TEMP 36.6; O2SAT 99
[2020-11-19] MEDS: Prazosin HCL 5 MG CAPSULE 10 MG PO (20:23)
[2020-11-20 06:27] VITALS: BP 114/74; PULSE 92; RESP 16; TEMP 36.3; O2SAT 99
--- NOTE | 2020-11-20 06:30 | PC.NURSE ---
Patient slept through the night, good behavioral control, Compliant with medication, no distress observed/reported, awaiting detox bed, will continue to monitor.
--- NOTE | 2020-11-20 07:10 | PC.NURSE ---
patient appears to be relaxing in day common area at present appears in no distress, received report from prior RN. pt asking for creamers for coffee.
[2020-11-20 08:03] VITALS: BMI 26.0
[2020-11-20] MEDS: Amphetamine Mixed Salts 10 MG TABLET 30 MG PO ×2 (08:35→12:15)
[2020-11-20] MEDS: ARIPiprazole 20 MG TABLET PO (08:35)
[2020-11-20] MEDS: FLUoxetine HCl 20 MG CAPSULE 40 MG PO (08:35)
[2020-11-20] MEDS: ALPRAZolam 0.5 MG TABLET 1 MG PO ×2 (08:35→12:18)
[2020-11-20] MEDS: Divalproex Sodium ER 500 MG TAB.ER.24H PO (08:35)
[2020-11-20] MEDS: OXcarbazepine 300 MG TABLET 600 MG PO (08:35)
[2020-11-20] MEDS: Buprenorphine/Naloxone 12/3 mg FILM 1 FILM SUBLINGUAL (08:44)
--- NOTE | 2020-11-20 09:06 | MHC.CARE ---
Patient up early making calls, transferred to CARE from patient phone in the POD: [facility] intake team, they possibly have a bed for patient on the dual diagnosis unit, which is the only program that accepts his insurance. They have the [facility] assessment from 11/16/20 but need either a new evaluation or an update that indicates the need for inpatient care. Call from [facility], they will accept application for admission. Emailing referral for to be filled out by CARE Team and faxed back.
[2020-11-20 10:42] VITALS: BP 115/74; PULSE 95; RESP 15; O2SAT 99
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
== END 2020-11-20 16:40 | disposition home or self-care (01) ==
PROVIDERS: Physician Assistant; Physician Assistant Medical; Emergency Provider Emergency Medicine Emergency Medical Services; PCP Family Medicine
DX: F32.9 Major depressive disorder, single episode, unspecified (principal); R45.851 Suicidal ideations; F41.9 Anxiety disorder, unspecified; F14.90 Cocaine use, unspecified, uncomplicated; F11.90 Opioid use, unspecified, uncomplicated; D64.9 Anemia, unspecified; Z79.899 Other long term (current) drug therapy; Z20.822 Contact with and (suspected) exposure to COVID-19; Z59.0 Homelessness
CPT/HCPCS: 36415; 80053; 80164; 80307; 81003; 82077; 83690; 83735; 85025; 85610; 87635; 93005; 99285

== ENCOUNTER 2021-01-12 17:21 | Inpatient (IN) | payer MEDICAID, SELFPAY ==
--- NOTE | ~2021-01-12 | US_ITS ---
EXAMINATION: ULTRASOUND LEFT CALF CLINICAL INFORMATION: Left calf redness, pain, rule out abscess COMPARISON: None TECHNIQUE: Ultrasound of area of clinical concern using arizmendi-scale and color Doppler imaging. FINDINGS: In the proximal left posterior calf, in the soft tissues deep to the skin, is a heterogeneous complex area of mixed hypoechoic and hyperechoic echotexture. This measures approximately 3.4 x 1.3 x 2.5 cm (long, AP, transverse). There is surrounding area of increased echogenicity in the soft tissues. These findings could represent an area of phlegmonous change or a developing abscess. There is edema otherwise seen throughout the entire calf. US/US extremity nonvascular IMPRESSION: In the proximal left posterior calf, in the soft tissues deep to the skin, is a heterogeneous complex area measuring approximately 3.4 x 1.3 x 2.5 cm. These findings suggestive of an infectious or inflammatory process, and could represent an area of phlegmonous change or developing abscess. Recommend ongoing close clinical correlation and follow up with short-term follow-up ultrasound/imaging for reassessment as clinically warranted.
[2021-01-12 17:43] VITALS: BP 128/75; PULSE 93; RESP 16; TEMP 36.9; O2SAT 98; BMI 24.3
--- NOTE | 2021-01-12 20:32 | ED_ITS ---
HPI - Skin/Abscess/Foreign Bdy General Chief complaint: Skin/Abscess/Foreign Body Stated complaint: Cellulitis Time Seen by Provider: 01/12/21 19:54 Source: patient Mode of arrival: ambulatory Limitations: no limitations History of Present Illness HPI narrative: Patient history of IVDA use noticed 1 week of redness and swelling left lower extremity thought likely had insect bite which got worse. Patient never shoot in lower extremities. No fever no chills otherwise patient feels okay no history of MRSA in the past Related Data Home Medications Medication Instructions Recorded Confirmed Unobtainable 01/12/21 01/12/21 Allergies Allergy/AdvReac Type Severity Reaction Status Date / Time morphine Allergy Itching Verified 01/12/21 17:49 Review of Systems Review of Systems: Yes all other systems are reviewed and are negative [facility] Past Medical History Medical History ADHD Anxiety Bipolar 1 disorder Depression IV drug user No known health problems Social History Social History Alcohol intake: unknown Patient Tobacco Use Status: Current someday Tobacco user Substance Use Type: Amphetamines, Crack/Cocaine, Heroin, IV Drugs, Opiates, Painkillers and Prescription Drugs Advance Directives: No Advance Directives Information Provided: Yes Physical Exam Vital Signs: Vital Signs: Last Vital Signs Temp 98.8 F 01/13/21 00:21 Pulse 89 01/13/21 00:21 Resp 17 01/13/21 00:21 BP 118/72 01/13/21 00:21 Pulse Ox 98 01/13/21 00:21 Body Mass Index 24.3 Const: General: healthy appearing, comfortable and no acute distress Orientation/consciousness: patient oriented x3 HENMT: Head: Yes normocephalic Eyes: General: appearance normal, both eyes and all related structures Resp: Effort & Inspection: normal respiratory effort Auscultation: clear to auscultation bilaterally Cardio: Palpation: normal PMI Rate: regular rate Rhythm: regular rhythm Heart sounds: S1 normal heart sound present, S2 normal heart sound present and no murmurs GI: Inspection: Yes normal to inspection Palpation (GI): Soft to palpation and nontender Skin: Other: IVDA track [place] both upper extremities Neuro: General: patient oriented x3 and no focal motor deficits Extrem: Upper/lower leg/hip images: 1. Swelling and redness with tenderness of left leg all the way from ankle to popliteal area with fullness in the calf area no abscess/open area noticed Mary sign negative MDM - Skin/Abscess/Foreign Bdy MDM Narrative Medical decision making narrative: Patient IVDA with impressive cellulitis of left leg elevated D-dimer likely inflammatory unable to Doppler at this time will give dose of Lovenox and plan for Doppler in a.m. to rule out DVT. Will admit the patient on IV antibiotics Lab Data Attestation: I reviewed the patient's lab results. Result diagrams: 01/12/21 20:54 01/12/21 20:54 Labs: Lab Results 01/12/21 01/12/21 01/12/21 Range/Units 20:54 20:54 20:54 WBC 8.3 (4.8-10.8) X10*3/uL RBC 3.84 L (4.60-5.80) X10*6/uL Hgb 10.9 L (14.0-18.0) g/dl Hct 32.9 L (42-52) % MCV 85.7 (80-98) fL MCH 28.4 (27.0-33.0) pg MCHC 33.1 (31.0-36.0) g/dl RDW 13.5 (11.0-16.0) % Plt Count 324 (160-400) X10*3/uL MPV 8.7 L (9.4-12.4) fL Immature Gran % (Auto) 0.4 (0.0-0.4) % Neut % (Auto) 62.2 (45-73) % Lymph % (Auto) 25.7 (20-40) % [place] % (Auto) 9.4 (2-11) % Eos % (Auto) 1.9 (0-4) % Baso % (Auto) 0.4 (0-2) % Lymph # (Auto) 2.1 (1.2-4.9) X10*3/uL [place] # (Auto) 0.8 (0.1-1.2) X10*3/uL Eos # (Auto) 0.2 (0.0-0.4) X10*3/uL Baso # (Auto) 0.0 (0.0-0.2) X10*3/uL Abs Immat Gran (auto) 0.03 (0.00-0.03) X10*3/uL Absolute Neuts (auto) 5.2 (2.0-8.3) X10*3/uL Absolute Nucleated RBC 0.000 (0.0-0.012) X10*3/uL Nucleated RBC % (auto) 0.0 (0.0-0.2) /100WBC D-Dimer NG/ML Sodium 137 (135-145) mmol/L Potassium 4.2 (3.3-5.1) mmol/L Chloride 102 (96-108) mmol/L Carbon Dioxide 27 (22-29) mmol/L Anion Gap 12 (12-20) BUN 10 (9-16) mg/dL Creatinine 0.80 (0.5-1.4) mg/dL Estim Creat Clear Calc 126.4 Estimated GFR > 60 Random Glucose 85 (60-115) mg/dL Lactic Acid 1.1 (0.5-2.0) mmol/L Calcium 9.1 (8.4-10.2) mg/dL COVID-19 ([facility]) (Negative) COVID-19 Clin Com 01/12/21 01/12/21 Range/Units 20:54 20:54 WBC (4.8-10.8) X10*3/uL RBC (4.60-5.80) X10*6/uL Hgb (14.0-18.0) g/dl Hct (42-52) % MCV (80-98) fL MCH (27.0-33.0) pg MCHC (31.0-36.0) g/dl RDW (11.0-16.0) % Plt Count (160-400) X10*3/uL MPV (9.4-12.4) fL Immature Gran % (Auto) (0.0-0.4) % Neut % (Auto) (45-73) % Lymph % (Auto) (20-40) % [place] % (Auto) (2-11) % Eos % (Auto) (0-4) % Baso % (Auto) (0-2) % Lymph # (Auto) (1.2-4.9) X10*3/uL [place] # (Auto) (0.1-1.2) X10*3/uL Eos # (Auto) (0.0-0.4) X10*3/uL Baso # (Auto) (0.0-0.2) X10*3/uL Abs Immat Gran (auto) (0.00-0.03) X10*3/uL Absolute Neuts (auto) (2.0-8.3) X10*3/uL Absolute Nucleated RBC (0.0-0.012) X10*3/uL Nucleated RBC % (auto) (0.0-0.2) /100WBC D-Dimer 1795 NG/ML Sodium (135-145) mmol/L Potassium (3.3-5.1) mmol/L Chloride (96-108) mmol/L Carbon Dioxide (22-29) mmol/L Anion Gap (12-20) BUN (9-16) mg/dL Creatinine (0.5-1.4) mg/dL Estim Creat Clear Calc Estimated GFR Random Glucose (60-115) mg/dL Lactic Acid (0.5-2.0) mmol/L Calcium (8.4-10.2) mg/dL COVID-19 ([facility]) Negative (Negative) COVID-19 Clin Com See Note Discharge Plan Discharge Clinical Impression: IV drug user Cellulitis Qualifiers: Site of cellulitis: extremity Site of cellulitis of extremity: lower extremity Laterality: left Qualified Code(s): L03.116 - Cellulitis of left lower limb Patient Disposition: Admitted As Inpatient
[2021-01-12 21:00] LABS: MANUAL DIFF FLAG NO
[2021-01-12 21:02] LABS: Basophils Percent Auto 0.4 % (0-2); Eosinophils Absolute Auto 0.2 X10*3/uL (0.0-0.4); Eosinophils Percent Auto 1.9 % (0-4); Hematocrit 32.9 % (42-52); Hemoglobin 10.9 g/dl (14.0-18.0); Imm Gran Abs Auto 0.03 X10*3/uL (0.00-0.03); Imm Gran Pct Auto 0.4 % (0.0-0.4); Lymphocytes Absolute Auto 2.1 X10*3/uL (1.2-4.9); Lymphocytes Percent Auto 25.7 % (20-40); Mean Corpuscular HGB Conc 33.1 g/dl (31.0-36.0); Mean Corpuscular Hemoglobin 28.4 pg (27.0-33.0); Mean Corpuscular Volume 85.7 fL (80-98); Mean Platelet Volume 8.7 fL (9.4-12.4); Monocytes Absolute Auto 0.8 X10*3/uL (0.1-1.2); Monocytes Percent Auto 9.4 % (2-11); Neutrophils Absolute Auto 5.2 X10*3/uL (2.0-8.3); Neutrophils Percent Auto 62.2 % (45-73); Platelet Count 324 X10*3/uL (160-400); Red Blood Count 3.84 X10*6/uL (4.60-5.80); Red Cell Distribution Width 13.5 % (11.0-16.0); White Blood Count 8.3 X10*3/uL (4.8-10.8)
[2021-01-12 21:16] LABS: COVID-19 Test Negative (Negative); IDNOW Serial# 9DD0AD1C
[2021-01-12 21:27] LABS: D Dimer 1795 NG/ML; Lactic Acid 1.1 mmol/L (0.5-2.0)
[2021-01-12 21:29] LABS: Anion Gap 12 (12-20); Blood Urea Nitrogen 10 mg/dL (9-16); Calcium 9.1 mg/dL (8.4-10.2); Carbon Dioxide 27 mmol/L (22-29); Chloride 102 mmol/L (96-108); Creatinine Clr Calc Pharmacy 126.4; Estimated Glomerular Filt Rate > 60; Glucose Random 85 mg/dL (60-115); Potassium 4.2 mmol/L (3.3-5.1); Sodium 137 mmol/L (135-145)
[2021-01-12] MEDS: vancomycin HCL 1,000 MG in 0.9 % Sodium Chloride 250 ML 270 MG IV (21:38)
[2021-01-12] MEDS: Piperacillin Sodium/Tazobactam 3.375 GM in 0.9 % Sodium Chloride 50 ML IV (21:38)
[2021-01-12] MEDS: 0.9 % Sodium Chloride 1,000 ML 999 ML IVCONT (21:39)
[2021-01-12 21:54] VITALS: BP 136/72; PULSE 98; RESP 18; TEMP 37.1; O2SAT 98
--- NOTE | 2021-01-12 23:23 | PC.NURSE ---
PT WAS UNABLE TO GIVE ACCURATE MED LIST STATED HE HAS BEEN OFF HIS MEDS FOR SOMETIME AND WAS SCREAMING AT NURSE AND WAS EXTREMELY RUDE. PT CONTINUALLY MOVES AND IV MEDICATION NEEDS TO BE RESET.
[2021-01-12] MEDS: Enoxaparin Sodium 80 MG/0.8 ML SYRINGE SUBCUT (23:29)
[2021-01-12 23:33] VITALS: BP 104/54; PULSE 66; RESP 16; O2SAT 98
--- NOTE | 2021-01-13 00:07 | PC.NURSE ---
PT MOVED TO MAIN ED ROOM 17 REPORT GIVEN TO LIU RAYA.
[2021-01-13 00:21] VITALS: BP 118/72; PULSE 89; RESP 17; TEMP 37.1; O2SAT 98
[2021-01-13] MEDS: 0.9 % Sodium Chloride Flush 3 ML SYRINGE IVFLUSH ×2 (01:26→08:02)
[2021-01-13 03:06] VITALS: BP 115/58; PULSE 65; RESP 14; TEMP 36.3; O2SAT 96
[2021-01-13] MEDS: HYDROmorphone HCl 0.5 MG/0.5 ML SYRINGE IVPUSH ×2 (03:10→08:00)
[2021-01-13] MEDS: Piperacillin Sodium/Tazobactam 3.375 GM in 0.9 % Sodium Chloride 50 ML IV ×2 (03:11→11:22)
--- NOTE | 2021-01-13 06:34 | P.HPHOSP_ITS ---
History of Present Illness Date of Service: 01/12/21 Chief Complaint: Left lower extremity redness This is a 35-year-old male with past medical history of IV drug abuse, ADHD, bipolar, depression who presents the hospital with redness in his left calf region. Patient reports swelling, pain 10/10, redness, and warmth. reports that the symptoms started about 4 days ago, associated with chills no fever. Patient reports injecting in that region. Denies any abdominal pain nausea or vomiting, no chest pain or shortness of breath, no urinary symptoms. Reports last use a yesterday, uses anything I can get my hands on . Vitals reviewed show unremarkable findings Labs unremarkable Given his history of IV drug use and extensive cellulitis will admit for further management Review of Systems Review of Systems: Yes all other systems are reviewed and are negative [facility] Medical History ADHD Anxiety Bipolar 1 disorder Depression IV drug user No known health problems Pertinent family history: Does not know his parents Social History Household Members: None Housing: Homeless Alcohol intake: unknown Patient Tobacco Use Status: Current someday Tobacco user Use of substances other than those prescribed or required for medical reasons: Refusing to respond Substance Use Type: Amphetamines, Crack/Cocaine, Heroin, IV Drugs, Opiates, Painkillers and Prescription Drugs Have you been hit, kicked, punched, or otherwise hurt by someone within the past year? If so, by whom?: No Do you feel safe in your current relationship?: Yes Is there a partner from a previous relationship who is making you feel unsafe now?: No Are you made to feel afraid or neglected: No Advance Directives: No Advance Directives Information Provided: Yes Do you have thoughts of harming others: None Do you have a plan to hurt others: No Plan Recently lost weight without trying: No Nutrition Risks: No Nutritional Risk Poor oral hygiene: No Meds Allergies Allergy/AdvReac Type Severity Reaction Status Date / Time morphine Allergy Itching Verified 01/12/21 17:49 Active Medications: Current Medications Generic Name Dose Route Start Last Admin Trade Name Freq PRN Reason Stop Dose Admin Acetaminophen 650 mg 01/13/21 01:17 Acetaminophen 325 Mg Tablet PO Q6H PRN Pain, Mild (Pain Scale 1-3) Diphenhydramine HCl 25 mg 01/13/21 01:17 Diphenhydramine Hcl 50 Mg/Ml Vial IVPUSH Q6H PRN Itching Enoxaparin Sodium 40 mg 01/13/21 23:00 Enoxaparin Sodium 40 Mg/0.4 Ml Syringe SUBCUT Q24H MAGDA Hydromorphone HCl 0.5 mg 01/13/21 01:17 01/13/21 03:10 Hydromorphone Hcl 0.5 Mg/0.5 Ml Syringe IVPUSH 0.5 mg Q4H PRN Administration Pain, Severe (Pain Scale 7-10) Protocol Vancomycin HCl 1,250 mg/ 250 mls @ 166.667 mls/hr 01/13/21 01:17 01/13/21 01:39 Sodium Chloride IV Not Given Q24H [facility] Piperacillin Sod/Tazobactam 50 mls @ 100 mls/hr 01/13/21 04:00 01/13/21 03:56 Sod 3.375 gm/ Sodium Chloride IV Infused Q6H [facility] Infusion Morphine Sulfate 4 mg 01/13/21 01:17 Morphine Sulfate 4 Mg/Ml Cartridge IVPUSH Q4H PRN Pain, Severe (Pain Scale 7-10) Protocol Ondansetron HCl 4 mg 01/13/21 01:17 Ondansetron Hcl 4 Mg/2 Ml Vial IVPUSH Q8H PRN Nausea and Vomiting Pharmacy Consult 1 each 01/13/21 01:17 Consult Rx Vancomycin Dosing MISCELLANE DAILY PRN Consult order Sodium Chloride 3 ml 01/13/21 01:17 01/13/21 01:26 0.9 % Sodium Chloride Flush 3 Ml Syringe IVFLUSH 3 ml QSHIFT [facility] Administration Home Medications Medication Instructions Recorded Confirmed Last Taken Type Unobtainable 01/12/21 01/12/21 Unknown History Physical Exam Vital Signs and Narrative: Vital Signs: Last Vital Signs Temp 97.3 F 01/13/21 03:06 Pulse 65 01/13/21 03:06 Resp 14 01/13/21 03:06 BP 115/58 L 01/13/21 03:06 Pulse Ox 96 01/13/21 03:06 Body Mass Index 24.3 Const: General: cooperative and no acute distress Orientation/consciousness: patient oriented x3 Eyes: General: appearance normal, both eyes and all related structures Pupils: Equal, round and reactive pupils present Resp: Effort & Inspection: normal respiratory effort Auscultation: clear to auscultation bilaterally Cardio: Rate: regular rate Rhythm: regular rhythm GI: Palpation (GI): Soft to palpation Auscultation: normal bowel sounds Skin: Other: Has significant left lower extremity edema, warmth, tenderness, erythema Neuro: General: patient oriented x3 Cranial nerves: Yes Equal, round and reactive pupils present Cognition (Neuro): normal cognition Results Labs CBC and Chem 7: 01/12/21 20:54 01/12/21 20:54 Labs: Laboratory Results - last 24 hr 01/12/21 01/12/21 01/12/21 20:54 20:54 20:54 MCV 85.7 MCH 28.4 MCHC 33.1 RDW 13.5 Plt Count 324 MPV 8.7 L Immature Gran % (Auto) 0.4 Neut % (Auto) 62.2 Lymph % (Auto) 25.7 [place] % (Auto) 9.4 Eos % (Auto) 1.9 Baso % (Auto) 0.4 Lymph # (Auto) 2.1 [place] # (Auto) 0.8 Eos # (Auto) 0.2 Baso # (Auto) 0.0 Abs Immat Gran (auto) 0.03 Absolute Neuts (auto) 5.2 Absolute Nucleated RBC 0.000 Nucleated RBC % (auto) 0.0 D-Dimer Anion Gap 12 Estim Creat Clear Calc 126.4 Estimated GFR > 60 Random Glucose 85 Lactic Acid 1.1 Calcium 9.1 COVID-19 ([facility]) COVID-19 Clin Com 01/12/21 01/12/21 20:54 20:54 MCV MCH MCHC RDW Plt Count MPV Immature Gran % (Auto) Neut % (Auto) Lymph % (Auto) [place] % (Auto) Eos % (Auto) Baso % (Auto) Lymph # (Auto) [place] # (Auto) Eos # (Auto) Baso # (Auto) Abs Immat Gran (auto) Absolute Neuts (auto) Absolute Nucleated RBC Nucleated RBC % (auto) D-Dimer 1795 Anion Gap Estim Creat Clear Calc Estimated GFR Random Glucose Lactic Acid Calcium COVID-19 ([facility]) Negative COVID-19 Clin Com See Note Assessment and Plan (1) Cellulitis: Qualifiers: Laterality: left Site of cellulitis: extremity Site of cellulitis of extremity: lower extremity Qualified Code(s): L03.116 - Cellulitis of left lower limb Status: Acute (2) IV drug user: Status: Acute 35-year-old male with history of IV drug use presents to the hospital with complaints of left flu extremity redness, swelling, and pain # cellulitis of left lower extremity - most likely secondary to IV drug injection - start him on broad-spectrum antibiotics - will obtain ultrasound of that region to rule out abscess - follow cultures - if abscess present consider surgical consult for I&D # IV drug user - will start on pain medication for the above - consider care team consult for withdrawal symptoms DVT prophylaxis: Lovenox Quality Stroke Does the patient have a stroke diagnosis?: No VTE Prior VTE?: No VTE Risk Level:: Medical - moderate - high VTE Device Contraindication: Treatment Not Indicated VTE Drug Contraindication: N/A - Med Ordered
[2021-01-13 07:50] VITALS: BP 102/54; PULSE 61; RESP 18; TEMP 36.1; O2SAT 99
--- NOTE | 2021-01-13 07:58 | HE.PHANOTE ---
Pharmacy Consult ? Medication Reconciliation Pharmacy has completed the medication reconciliation and there were no significant medication issues requiring provider attention.? Patient reports not taking meds for a few days and not taking suboxone for about 5 days Lennie FregosoD
[2021-01-13] MEDS: vancomycin HCL 1,000 MG in 0.9 % Sodium Chloride 250 ML 270 MG IV (08:17)
--- NOTE | 2021-01-13 09:06 | MHC.CM.PN ---
PATIENT IDENTIFIES HOMELESS. HE WALKS WHERE NEEDED. PATIENT MADE AWARE OF IMPORTANCE OF HCP DOCUMENTATION. AND THAT CASE MANAGEMENT CAN ASSIST IF HE CHOOSES TO ASSIGN ONE. HE DOES VERIFY HIS PCP WHO IS OUT OF [facility]. PATIENT REPORTS THAT HE SEES THIS PCP ONCE EVERY MONTH FOR MEDICATION MAINTENENCE. PATIENT IS PRESCRIBED [facility] NO DME OR VNA SERVICES. HE IS AWARE THAT PLAN OF CARE IS DEPENDENT ON BLOOD CULTURES. CASE MANAGEMENT AVAILABLE FOR DISCHARGE NEEDS.
[2021-01-13] MEDS: Divalproex Sodium ER 500 MG TAB.ER.24H PO (11:32)
[2021-01-13 12:00] VITALS: BP 117/67; PULSE 62; RESP 18; TEMP 36.4; O2SAT 100
--- NOTE | 2021-01-13 14:38 | HO.ADDICTCON ---
History of Present Illness Date of Service: 01/13/21 Chief Complaint: Cellulitis Reason for Consult: ALEC, has suboxone prescribed as outpatient. Requesting physician: Lona Martinez Discussed with referring provider: Yes Sources of Information: patient interviewed and chart reviewed Additional Sources of Information: [facility] HPI Narrative: Patient 35-year-old male with a past medical history of substance use disorder, ADHD, bipolar disorder, depression, who presented to [facility] with redness / swelling in his left calf. Patient was admitted for further care and management, antibiotic started. Addiction consult service asked to meet with patient regarding Suboxone script and substance use disorder. This typewriter ribbon winder met with patient this morning, along with acid recovery operator. Patient was hesitant to speak with us, held up his hand, and stated ?I am not going to stop doing drugs ?. When asked if we could meet with him to discuss symptom management, he stated yes. Patient reports that he normally does ?a few bundles? of heroin and cocaine daily. He states that his last used was a couple of days ago . When asked if he was experiencing any type of withdrawals, he stated ?no . Patient did not appear to be in any type of withdrawals from opioids, benzodiazepines, alcohol, or any other substance. He reports that he has not use Suboxone in ?a while ?. When asked if he thought he had any Suboxone in his system, he stated no . He states that he last used prescribed Xanax and prescribed Adderall ?a few days ago ?. A [facility] search reveals continuous scripts for Adderall 40 mg daily, Xanax total 4 mg daily, and Suboxone total 24-3 mg daily. Patient states that he would like to be restarted on some type of benzodiazepine, as he does not want to have withdrawals. Patient is in no overt distress, no withdrawal symptoms noted at this time. No tox screen available at this time. When discussing level of pain, patient describes his current level of pain as an 8 on scale 1-10. He reports that he is not interested in any type of substance use treatment at this time. Patient was dismissive during encounter. He did deny any thoughts of harm to self or others however. A search of home prescriptions through chart reveals outpatient psychiatric meds including alprazolam, ariprazole, Adderall, and Depakote, as well as Suboxone. Past Psychiatric History: Full extent of psych history is unknown, however patient did mention that he knows the only place he would be prescribed is Adderall is when he is inpatient psych. A chart review did not reveal any inpatient level of care within this facility. Medical Evaluation Reviewed: Yes Personal & Social History: Homeless. Any further information unknown. Review of Systems Review of Systems A full review of systems was completed and was negative with the exception of pertinent positives noted in history of the presenting illness (HPI). The patient denies any type of withdrawal symptoms from any substances at this time. Does report that he is experiencing pain related to his left lower calf infection. Yes all other systems are reviewed and are negative Constitutional: Reports no additional constitutional complaints Diagnostics Vital Signs (24Hr): Vital Signs - 24 hr 01/12/21 17:43 01/12/21 21:54 01/12/21 23:33 Temperature 98.4 F 98.8 F Pulse Rate 93 98 66 Respiratory Rate 16 18 16 Blood Pressure 128/75 136/72 104/54 L Pulse Oximetry 98 98 98 01/13/21 00:21 01/13/21 03:06 01/13/21 07:50 Temperature 98.8 F 97.3 F 96.9 F Pulse Rate 89 65 61 Respiratory Rate 17 14 18 Blood Pressure 118/72 115/58 L 102/54 L Pulse Oximetry 98 96 99 01/13/21 12:00 Temperature 97.6 F Pulse Rate 62 Respiratory Rate 18 Blood Pressure 117/67 Pulse Oximetry 100 Body Mass Index 24.3 Labs Results: 01/12/21 20:54 01/12/21 20:54 Labs: Laboratory Results - last 48 hr 01/12/21 01/12/21 01/12/21 20:54 20:54 20:54 WBC 8.3 RBC 3.84 L Hgb 10.9 L Hct 32.9 L MCV 85.7 MCH 28.4 MCHC 33.1 RDW 13.5 Plt Count 324 MPV 8.7 L Immature Gran % (Auto) 0.4 Neut % (Auto) 62.2 Lymph % (Auto) 25.7 [place] % (Auto) 9.4 Eos % (Auto) 1.9 Baso % (Auto) 0.4 Lymph # (Auto) 2.1 [place] # (Auto) 0.8 Eos # (Auto) 0.2 Baso # (Auto) 0.0 Abs Immat Gran (auto) 0.03 Absolute Neuts (auto) 5.2 Absolute Nucleated RBC 0.000 Nucleated RBC % (auto) 0.0 D-Dimer Sodium 137 Potassium 4.2 Chloride 102 Carbon Dioxide 27 Anion Gap 12 BUN 10 Creatinine 0.80 Estim Creat Clear Calc 126.4 Estimated GFR > 60 Random Glucose 85 Lactic Acid 1.1 Calcium 9.1 COVID-19 ([facility]) COVID-19 Clin Com 01/12/21 01/12/21 20:54 20:54 WBC RBC Hgb Hct MCV MCH MCHC RDW Plt Count MPV Immature Gran % (Auto) Neut % (Auto) Lymph % (Auto) [place] % (Auto) Eos % (Auto) Baso % (Auto) Lymph # (Auto) [place] # (Auto) Eos # (Auto) Baso # (Auto) Abs Immat Gran (auto) Absolute Neuts (auto) Absolute Nucleated RBC Nucleated RBC % (auto) D-Dimer 1795 Sodium Potassium Chloride Carbon Dioxide Anion Gap BUN Creatinine Estim Creat Clear Calc Estimated GFR Random Glucose Lactic Acid Calcium COVID-19 ([facility]) Negative COVID-19 Clin Com See Note Imaging Radiology Impressions: ITS Impressions Extremity Ultrasound 01/13/21 09:33 IMPRESSION: In the proximal left posterior calf, in the soft tissues deep to the skin, is a heterogeneous complex area measuring approximately 3.4 x 1.3 x 2.5 cm. These findings suggestive of an infectious or inflammatory process, and could represent an area of phlegmonous change or developing abscess. Recommend ongoing close clinical correlation and follow up with short-term follow-up ultrasound/imaging for reassessment as clinically warranted. Mental Status Exam Mental Status Exam Narrative: Well groomed male, in no apparent distress. Appears stated age. Reclining in bed, wearing hospital garb. Fully A&Ox4. No evidence of any type of discomfort or substance withdrawals noted. No involuntary movements noted, motor activity calm. Patient was calm, however dismissive during encounter. Stable mood and affect. No evidence of any type of constricted or labile affect noted. Thought process and associations appeared linear, goal directed. Thought content was normal, future oriented. No evidence of delusional thought noted. Patient did not appear to be responding to any type of internal stimuli. Patient denies any thought of harm to self or others. Patient was dismissive during encounter, providing brief, jamie answers, with no further elaboration. Speech was clear, articulate. Judgment and insight appear fair to intact at this time. Patient stated he is fully aware that he has a substance use disorder, and that he does not want any assistance at this time. Ambulation not observed. Patient Appearance: Well Grooomed and Appropriate Patient Orientation: Person, Place, Time and Situation Level of Consciousness: Appropriate and Alert Medications Medications Current Medications Generic Name Dose Route Start Last Admin Trade Name Freq PRN Reason Stop Dose Admin Acetaminophen 650 mg 01/13/21 01:17 Acetaminophen 325 Mg Tablet PO Q6H PRN Pain, Mild (Pain Scale 1-3) Aripiprazole 20 mg 01/14/21 09:00 Aripiprazole 20 Mg Tablet PO DAILY [facility] Diphenhydramine HCl 25 mg 01/13/21 01:17 Diphenhydramine Hcl 50 Mg/Ml Vial IVPUSH Q6H PRN Itching Divalproex Sodium 500 mg 01/13/21 11:30 01/13/21 11:32 Divalproex Sodium Er 500 Mg Tab.Er.24h PO 500 mg BID MAGDA Administration Enoxaparin Sodium 40 mg 01/13/21 23:00 Enoxaparin Sodium 40 Mg/0.4 Ml Syringe SUBCUT Q24H MAGDA Hydromorphone HCl 0.5 mg 01/13/21 01:17 01/13/21 08:00 Hydromorphone Hcl 0.5 Mg/0.5 Ml Syringe IVPUSH 0.5 mg Q4H PRN Administration Pain, Severe (Pain Scale 7-10) Protocol Piperacillin Sod/Tazobactam 50 mls @ 100 mls/hr 01/13/21 04:00 01/13/21 12:05 Sod 3.375 gm/ Sodium Chloride IV Infused Q6H [facility] Infusion Vancomycin HCl 1,000 mg/ 270 mls @ 270 mls/hr 01/13/21 08:00 01/13/21 09:51 Sodium Chloride IV Infused Q12H [facility] Infusion Ibuprofen 800 mg 01/13/21 11:00 Ibuprofen 800 Mg Tablet PO TID PRN Pain (Scale Score 1-3) Lorazepam 0.5 mg 01/13/21 10:59 Lorazepam 0.5 Mg Tablet PO Q8H PRN anxiety/restlessness Ondansetron HCl 4 mg 01/13/21 01:17 Ondansetron Hcl 4 Mg/2 Ml Vial IVPUSH Q8H PRN Nausea and Vomiting Oxcarbazepine 600 mg 01/13/21 21:00 Oxcarbazepine 300 Mg Tablet PO BID [facility] Pharmacy Consult 1 each 01/13/21 01:17 Consult Rx Vancomycin Dosing MISCELLANE DAILY PRN Consult order Pharmacy Consult 1 each 01/13/21 07:58 Consult Rx Perform Med Rec MISCELLANE ONCE PRN Consult order Prazosin HCl 10 mg 01/13/21 21:00 Prazosin Hcl 5 Mg Capsule PO BEDTIME [facility] Protocol Sodium Chloride 3 ml 01/13/21 01:17 01/13/21 08:02 0.9 % Sodium Chloride Flush 3 Ml Syringe IVFLUSH 3 ml QSHIFT [facility] Administration Trazodone HCl 100 mg 01/13/21 21:00 Trazodone Hcl 100 Mg Tablet PO BEDTIME [facility] Allergies Allergies Allergy/AdvReac Type Severity Reaction Status Date / Time morphine Allergy Itching Verified 01/12/21 17:49 Assessment & Plan Assessment & Plan (1) Opioid use disorder, severe, dependence: Status: Acute Code(s): F11.20 - Opioid dependence, uncomplicated Assessment and Plan: Patient has current script for Suboxone 24 mg-3 mg sublingual daily, appears to have had it consistently over the past 2 years. Patient reports ongoing heroin and opioid use, with most recent use several bundles daily via IV route. When asked if he has any Suboxone in his system, he stated no . He also reported he is not interested in any type of assistance regarding substance use disorder at this time. (2) Cocaine use disorder: Status: Acute Code(s): F14.10 - Cocaine abuse, uncomplicated Assessment and Plan: Patient reports that he uses cocaine daily along with heroin. He states he is not experiencing any type of withdrawal symptoms at this time. He states he is not interested in any type of treatment at this time. Assessment and Plan: Due to patient's lack of withdrawal symptoms of any type, and reporting that he does not have any Suboxone in his system, would recommend the following. 1. Recommend toxicology screen, including for benzodiazepines, buprenorphine, fentanyl, heroin, cocaine, as well as any other substances of abuse. 2. If patient does have [ositive screen for buprenorphine, and he is willing to take suboxone while inpatient, recommend start at 8mg-2mg SL today, then titrate up to regular dose over next 2 days. 3. Consider having a benzodiazepine available as a prn in case of any benzodiazepine withdrawals. 4. Can hold adderall until patient is discharged. I have shared these recommendations with Dr. Lona Martinez, via secure messaging. Thank you for this consultation. Greater than 50% of the session was spent on counseling and/or coordination of care PMFSH Past Medical History Medical History ADHD Anxiety Bipolar 1 disorder Depression IV drug user No known health problems Psychiatric History: Psychopharmacology (Patient reports does have a history of ADHD and depression. ) Family History Pertinent family history: unknown Social History Social History Household Members: None Housing: Homeless Alcohol intake: unknown Patient Tobacco Use Status: Current someday Tobacco user Use of substances other than those prescribed or required for medical reasons: Refusing to respond Substance Use Type: Amphetamines, Crack/Cocaine, Heroin, IV Drugs, Opiates, Painkillers and Prescription Drugs Have you been hit, kicked, punched, or otherwise hurt by someone within the past year? If so, by whom?: No Do you feel safe in your current relationship?: Yes Is there a partner from a previous relationship who is making you feel unsafe now?: No Are you made to feel afraid or neglected: No Advance Directives: No Advance Directives Information Provided: Yes Do you have thoughts of harming others: None Do you have a plan to hurt others: No Plan Recently lost weight without trying: No Nutrition Risks: No Nutritional Risk Poor oral hygiene: No service: No Current occupational status: employed
--- NOTE | 2021-01-13 15:06 | HO.PM.IMPN ---
Subjective Subjective Date of Service: 01/13/21 Interval History: the patient was seen and evaluated this morning Laying in bed, feels comfortable Complaining of pain at the side of cellulitis Denies any fever, but having weakness No reported other overnight events. Systemic review: No fever, chills or weakness No chest pain, palpitation No shortness of breath or coughing No abdominal pain, nausea or vomiting No urinary symptoms Lower extremity erythema and swelling Physical Exam Vital Signs: Vital Signs: Last Vital Signs Temp 97.6 F 01/13/21 12:00 Pulse 62 01/13/21 12:00 Resp 18 01/13/21 12:00 BP 117/67 01/13/21 12:00 Pulse Ox 100 01/13/21 12:00 Body Mass Index 24.3 Const: Other: Constitutional : Alert, oriented, not in distress Neck : Normal inspection, Supple Cardiovascular : RRR, S1 S2, no lower extremity edema Respiratory : Good bilateral air entry, no crackles, wheezes or rhonchi Gastrointestinal: soft, lax, Normal bowel sounds, Non tender Skin : Warm, Dry, left lower extremity swelling, erythema and tenderness with warmth. No drainage noted. Neurological : Alert & oriented x3, No focal deficit Objective Data Current Medications Generic Name Dose Route Start Last Admin Trade Name Freq PRN Reason Stop Dose Admin Acetaminophen 650 mg 01/13/21 01:17 Acetaminophen 325 Mg Tablet PO Q6H PRN Pain, Mild (Pain Scale 1-3) Aripiprazole 20 mg 01/14/21 09:00 Aripiprazole 20 Mg Tablet PO DAILY MAGDA Diphenhydramine HCl 25 mg 01/13/21 01:17 Diphenhydramine Hcl 50 Mg/Ml Vial IVPUSH Q6H PRN Itching Divalproex Sodium 500 mg 01/13/21 11:30 01/13/21 11:32 Divalproex Sodium Er 500 Mg Tab.Er.24h PO 500 mg BID MAGDA Administration Enoxaparin Sodium 40 mg 01/13/21 23:00 Enoxaparin Sodium 40 Mg/0.4 Ml Syringe SUBCUT Q24H [facility] Hydromorphone HCl 0.5 mg 01/13/21 01:17 01/13/21 08:00 Hydromorphone Hcl 0.5 Mg/0.5 Ml Syringe IVPUSH 0.5 mg Q4H PRN Administration Pain, Severe (Pain Scale 7-10) Protocol Piperacillin Sod/Tazobactam 50 mls @ 100 mls/hr 01/13/21 04:00 01/13/21 12:05 Sod 3.375 gm/ Sodium Chloride IV Infused Q6H [facility] Infusion Vancomycin HCl 1,000 mg/ 270 mls @ 270 mls/hr 01/13/21 08:00 01/13/21 09:51 Sodium Chloride IV Infused Q12H [facility] Infusion Ibuprofen 800 mg 01/13/21 11:00 Ibuprofen 800 Mg Tablet PO TID PRN Pain (Scale Score 1-3) Lorazepam 0.5 mg 01/13/21 10:59 Lorazepam 0.5 Mg Tablet PO Q8H PRN anxiety/restlessness Ondansetron HCl 4 mg 01/13/21 01:17 Ondansetron Hcl 4 Mg/2 Ml Vial IVPUSH Q8H PRN Nausea and Vomiting Oxcarbazepine 600 mg 01/13/21 21:00 Oxcarbazepine 300 Mg Tablet PO BID [facility] Pharmacy Consult 1 each 01/13/21 01:17 Consult Rx Vancomycin Dosing MISCELLANE DAILY PRN Consult order Pharmacy Consult 1 each 01/13/21 07:58 Consult Rx Perform Med Rec MISCELLANE ONCE PRN Consult order Prazosin HCl 10 mg 01/13/21 21:00 Prazosin Hcl 5 Mg Capsule PO BEDTIME [facility] Protocol Sodium Chloride 3 ml 01/13/21 01:17 01/13/21 08:02 0.9 % Sodium Chloride Flush 3 Ml Syringe IVFLUSH 3 ml QSHIFT [facility] Administration Trazodone HCl 100 mg 01/13/21 21:00 Trazodone Hcl 100 Mg Tablet PO BEDTIME [facility] Labs CBC & Chem 7: 01/12/21 20:54 01/12/21 20:54 Labs: Laboratory Results - last 24 hr 01/12/21 01/12/21 01/12/21 20:54 20:54 20:54 MCV 85.7 MCH 28.4 MCHC 33.1 RDW 13.5 Plt Count 324 MPV 8.7 L Immature Gran % (Auto) 0.4 Neut % (Auto) 62.2 Lymph % (Auto) 25.7 [place] % (Auto) 9.4 Eos % (Auto) 1.9 Baso % (Auto) 0.4 Lymph # (Auto) 2.1 [place] # (Auto) 0.8 Eos # (Auto) 0.2 Baso # (Auto) 0.0 Abs Immat Gran (auto) 0.03 Absolute Neuts (auto) 5.2 Absolute Nucleated RBC 0.000 Nucleated RBC % (auto) 0.0 D-Dimer Anion Gap 12 Estim Creat Clear Calc 126.4 Estimated GFR > 60 Random Glucose 85 Lactic Acid 1.1 Calcium 9.1 COVID-19 ([facility]) COVID-19 Clin Com 01/12/21 01/12/21 20:54 20:54 MCV MCH MCHC RDW Plt Count MPV Immature Gran % (Auto) Neut % (Auto) Lymph % (Auto) [place] % (Auto) Eos % (Auto) Baso % (Auto) Lymph # (Auto) [place] # (Auto) Eos # (Auto) Baso # (Auto) Abs Immat Gran (auto) Absolute Neuts (auto) Absolute Nucleated RBC Nucleated RBC % (auto) D-Dimer 1795 Anion Gap Estim Creat Clear Calc Estimated GFR Random Glucose Lactic Acid Calcium COVID-19 ([facility]) Negative COVID-19 Clin Com See Note Assessment and Plan (1) Cellulitis: Status: Acute (2) IV drug user: Status: Acute Assessment and Plan: 35-year-old male with history of IV drug use presents to the hospital with complaints of left flu extremity redness, swelling, and pain # cellulitis of left lower extremity # Abscess secondary to IV drug injection Continue Zosyn and vancomycin Ultrasound concerning for possible abscess or phlegmon Pending cultures To get surgical evaluation # IV drug user pain medication for the above Addiction team evaluation Hold Suboxone as the patient did not take it for a while now DVT prophylaxis: Lovenox Quality Stroke Does the patient have a stroke diagnosis?: No VTE Prior VTE?: No VTE Risk Level:: Medical - moderate - high VTE Device Contraindication: Treatment Not Indicated VTE Drug Contraindication: N/A - Med Ordered
[2021-01-13 15:16] VITALS: BP 128/69; PULSE 63; RESP 18; TEMP 37.2; O2SAT 98
--- NOTE | 2021-01-13 15:49 | P.CONGS_ITS ---
History of Present Illness Consult details Consult date: 01/13/21 Requesting physician: Lona Martinez Narrative: 35-year-old male patient presenting with complaints of left calf pain and redness. He has a history of IV drug abuse, ADHD, bipolar disorder, presen ting with redness in the right calf after injecting intravenous drugs. The redness began approximately 4-5 days ago and has increased in severity. He subsequently presented to the emergency department for further evaluation. He denies fever, chills, nausea, vomiting, bleeding, or discharge. He denies a previous infection in this location. He denies previous surgery in the legs. The patient was admitted to the hospitalist service for IV antibiotics. Ultrasound of the left leg revealed ?proximal left posterior calf, in the soft tissues deep to the skin, is a heterogeneous complex area measuring approximately 3.4 x 1.3 x 2.5 cm. These findings suggestive of an infectious or inflammatory process, and could represent an area of phlegmonous change or developing abscess.? Surgical consultation was requested for possible incision and drainage. Review of Systems Review of Systems: Patient is sleepy, snoring, unable to answer questions Yes Unobtainable due to mental status PMFSH Past Medical History Medical History ADHD Anxiety Bipolar 1 disorder Depression IV drug user No known health problems Social History Social History Household Members: None Housing: Homeless Alcohol intake: unknown Patient Tobacco Use Status: Current someday Tobacco user Use of substances other than those prescribed or required for medical reasons: Refusing to respond Substance Use Type: Amphetamines, Crack/Cocaine, Heroin, IV Drugs, Opiates, Painkillers and Prescription Drugs Have you been hit, kicked, punched, or otherwise hurt by someone within the past year? If so, by whom?: No Do you feel safe in your current relationship?: Yes Is there a partner from a previous relationship who is making you feel unsafe now?: No Are you made to feel afraid or neglected: No Advance Directives: No Advance Directives Information Provided: Yes Do you have thoughts of harming others: None Do you have a plan to hurt others: No Plan Recently lost weight without trying: No Nutrition Risks: No Nutritional Risk Poor oral hygiene: No service: No Current occupational status: employed Meds Allergies Allergy/AdvReac Type Severity Reaction Status Date / Time morphine Allergy Itching Verified 01/12/21 17:49 Active Medications: Current Medications Generic Name Dose Route Start Last Admin Trade Name Freq PRN Reason Stop Dose Admin Acetaminophen 650 mg 01/13/21 01:17 Acetaminophen 325 Mg Tablet PO Q6H PRN Pain, Mild (Pain Scale 1-3) Aripiprazole 20 mg 01/14/21 09:00 Aripiprazole 20 Mg Tablet PO DAILY MAGDA Diphenhydramine HCl 25 mg 01/13/21 01:17 Diphenhydramine Hcl 50 Mg/Ml Vial IVPUSH Q6H PRN Itching Divalproex Sodium 500 mg 01/13/21 11:30 01/13/21 11:32 Divalproex Sodium Er 500 Mg Tab.Er.24h PO 500 mg BID MAGDA Administration Enoxaparin Sodium 40 mg 01/13/21 23:00 Enoxaparin Sodium 40 Mg/0.4 Ml Syringe SUBCUT Q24H MAGDA Hydromorphone HCl 0.5 mg 01/13/21 01:17 01/13/21 08:00 Hydromorphone Hcl 0.5 Mg/0.5 Ml Syringe IVPUSH 0.5 mg Q4H PRN Administration Pain, Severe (Pain Scale 7-10) Protocol Piperacillin Sod/Tazobactam 50 mls @ 100 mls/hr 01/13/21 04:00 01/13/21 12:05 Sod 3.375 gm/ Sodium Chloride IV Infused Q6H MAGDA Infusion Vancomycin HCl 1,000 mg/ 270 mls @ 270 mls/hr 01/13/21 08:00 01/13/21 09:51 Sodium Chloride IV Infused Q12H MAGDA Infusion Ibuprofen 800 mg 01/13/21 11:00 Ibuprofen 800 Mg Tablet PO TID PRN Pain (Scale Score 1-3) Lorazepam 0.5 mg 01/13/21 10:59 Lorazepam 0.5 Mg Tablet PO Q8H PRN anxiety/restlessness Ondansetron HCl 4 mg 01/13/21 01:17 Ondansetron Hcl 4 Mg/2 Ml Vial IVPUSH Q8H PRN Nausea and Vomiting Oxcarbazepine 600 mg 01/13/21 21:00 Oxcarbazepine 300 Mg Tablet PO BID COUNTS INCLUDE 234 BEDS AT THE [facility] Pharmacy Consult 1 each 01/13/21 01:17 Consult Rx Vancomycin Dosing MISCELLANE DAILY PRN Consult order Pharmacy Consult 1 each 01/13/21 07:58 Consult Rx Perform Med Rec MISCELLANE ONCE PRN Consult order Prazosin HCl 10 mg 01/13/21 21:00 Prazosin Hcl 5 Mg Capsule PO BEDTIME COUNTS INCLUDE 234 BEDS AT THE [facility] Protocol Sodium Chloride 3 ml 01/13/21 01:17 01/13/21 08:02 0.9 % Sodium Chloride Flush 3 Ml Syringe IVFLUSH 3 ml QSHIFT COUNTS INCLUDE 234 BEDS AT THE [facility] Administration Trazodone HCl 100 mg 01/13/21 21:00 Trazodone Hcl 100 Mg Tablet PO BEDTIME COUNTS INCLUDE 234 BEDS AT THE [facility] Home Medications Medication Instructions Recorded Confirmed Last Taken Type alprazolam 1 mg tablet 1 tab PO QID PRN 01/13/21 01/13/21 Unknown History aripiprazole 20 mg tablet 1 tab PO DAILY 01/13/21 01/13/21 Unknown History buprenorphine 12 mg-naloxone 3 mg 1 strip SUBLINGUAL BID 01/13/21 01/13/21 Unknown History sublingual film (Suboxone) dextroamphetamine-amphetamine 30 1 tab PO BID 01/13/21 01/13/21 Unknown History mg tablet dextroamphetamine-amphetamine ER 1 cap PO DAILY 01/13/21 01/13/21 Unknown History 30 mg 24hr capsule,extend release (Adderall XR) divalproex 500 mg tablet,extended 1 tab PO BID 01/13/21 01/13/21 Unknown History release 24 hr ibuprofen 800 mg tablet 1 tab PO TID PRN 01/13/21 01/13/21 Unknown History naloxone 4 mg/actuation nasal 1 spray INTRANASAL ONCE 01/13/21 01/13/21 Unknown History spray (Narcan) oxcarbazepine 600 mg tablet 1 tab PO BID 01/13/21 01/13/21 Unknown History prazosin 5 mg capsule 2 cap PO BEDTIME 01/13/21 01/13/21 Unknown History trazodone 50 mg tablet 100 mg PO BEDTIME 01/13/21 01/13/21 Unknown History Physical Exam Vital Signs: Vital Signs: Last Vital Signs Temp 98.9 F 01/13/21 15:16 Pulse 63 01/13/21 15:16 Resp 18 01/13/21 15:16 BP 128/69 01/13/21 15:16 Pulse Ox 98 01/13/21 15:16 Body Mass Index 24.3 Const: Other: Sleepy, response to voice, ill-appearing HENMT: Head: Yes normocephalic and Yes atraumatic Resp: Effort & Inspection: normal respiratory effort, no cough, no stridor and not tachypneic GI: Inspection: Yes normal to inspection Palpation (GI): Soft to palpation, nontender, no guarding and not rigid Skin: Other: Erythema at left leg as noted below Extrem: Other: Left lower extremity with an area of erythema as noted below involving the medial left calf. Area is inflamed but not fluctuant. Pulses are palpable at the DP PT and normal. Sensation normal at toes. Normal motor function at ankle and toes. Ankle/foot/toe images: 1. Area of erythema, tenderness, warmth in the medial left calf Results Labs Result diagrams: 01/12/21 20:54 01/12/21 20:54 Labs: Abnormal lab results 01/12/21 Range/Units 20:54 RBC 3.84 L (4.60-5.80) X10*6/uL Hgb 10.9 L (14.0-18.0) g/dl Hct 32.9 L (42-52) % MPV 8.7 L (9.4-12.4) fL Short CBC 01/12/21 Range/Units 20:54 WBC 8.3 (4.8-10.8) X10*3/uL Hgb 10.9 L (14.0-18.0) g/dl Hct 32.9 L (42-52) % Plt Count 324 (160-400) X10*3/uL BMP 01/12/21 20:54 Sodium 137 Potassium 4.2 Chloride 102 Carbon Dioxide 27 BUN 10 Creatinine 0.80 Calcium 9.1 All other labs normal. Imaging Additional studies: Ultrasound of left lower extremity images reviewed Assessment and Plan (1) Cellulitis of left lower leg: Status: Acute 35-year-old male patient with history of IV drug abuse, status post injection of the left lower extremity now with a large area of cellulitis and possible abscess. Examination with ultrasound revealed possible developing abscess versus phlegmon with edema within the tissue. Examination does reveal an area of erythema which is tender to palpation. Findings are suggestive of a phlegmon at this time although this certainly bears watching for possible dev elopment of an abscess. If no improvement with IV antibiotics, incision and drainage may be warranted. Procedures Date of Service Date of Service: 01/13/21
--- NOTE | 2021-01-13 16:12 | PM.EVENT ---
Event Note Date of Service: 01/13/21 Event Note: Discharge note Discharge diagnosis Left lower extremity cellulitis Cocaine use disorder IV drug user Patient was admitted to the hospital and treated with IV antibiotics for cellulitis. Evaluated by Addiction Team for history of IV drug abuse. Concern was raised about using narcotics in the hospital so he was asked by the nursing staff to low into his personal stuff. He got really angry and he decided to leave the hospital AMA. I went to talk to him but he refused to talk to anyone and insisted on leaving. He understand the consequences of leaving including worsening of the infection, sepsis and possible .
--- NOTE | 2021-01-13 17:16 | PC.NURSE ---
1610-nurse manager placement, Morteza Poole and security approached patient regarding searching belongings. Patient refusing, patient yelling, threatening to leave AMA. Dr Barrientos at bedside. Patient not listening to staff wanting to leave. Patient alert and oriented aware of risks of leaving hospital, IV removed, ambulated off unit by security. Patient refused to sign AMA form.
== END 2021-01-13 16:25 | disposition left against medical advice (07) | DRG 383 ==
LOC: HO.ED 21:36 → HO.EDOVER 23:20 → HO.S3 01-13 02:04
PROVIDERS: Admitting Provider Internal Medicine; Emergency Provider Internal Medicine; PCP Family Medicine; Visit Provider Student in an Organized Health Care Education/Training Program
DX: L03.116 Cellulitis of left lower limb (principal); F11.20 Opioid dependence, uncomplicated; F17.210 Nicotine dependence, cigarettes, uncomplicated; F31.9 Bipolar disorder, unspecified; F19.10 Other psychoactive substance abuse, uncomplicated; L02.416 Cutaneous abscess of left lower limb; F14.10 Cocaine abuse, uncomplicated; Z20.822 Contact with and (suspected) exposure to COVID-19; F90.9 Attention-deficit hyperactivity disorder, unspecified type; Z71.6 Tobacco abuse counseling; Z59.0 Homelessness; Z79.1 Long term (current) use of non-steroidal anti-inflammatories (NSAID); Z79.899 Other long term (current) drug therapy
CPT/HCPCS: 36415; 76882; 80048; 83605; 85025; 85379; 87040; 87635; 99218; 99285; J1170; J1650; J2543; J3370

== ENCOUNTER 2021-09-21 21:38 | Inpatient (IN) | payer MEDICAID, SELFPAY ==
--- NOTE | ~2021-09-21 | CT_ITS ---
EXAMINATION: CT HEAD WITHOUT CONTRAST CLINICAL INFORMATION: Cannot move left arm COMPARISON: None TECHNIQUE: Contiguous axial imaging was performed from the skull base to vertex without intravenous administration of contrast. This CT examination was performed using dose optimization techniques as appropriate, variously including the following: *Automated exposure control *Adjustment of mA and/or kV according to patient size (this includes techniques or standardized protocols for targeted exams where dose is matched to indication/reason for exam; i.e. extremities or head) *Use of iterative reconstruction technique DLP: 680 mGy-cm FINDINGS: There is no evidence of acute intracranial hemorrhage or territorial infarction. No abnormal mass effect or midline shift is seen. Devi to white matter differentiation is well preserved. No extra-axial fluid collections are identified. The ventricles are normal in size. There is no abnormal attenuation within the brain parenchyma. The osseous structures and soft tissues are normal. The mastoid air cells and visualized portions of the paranasal sinuses are well aerated. CT/CT head/brain wo con IMPRESSION: No acute intracranial pathology.
--- NOTE | ~2021-09-21 | MR_ITS ---
Examination: MR chest wo/w con Indication: Cannot move left arm. Look at brachial plexus and upper left arm Comparison: 09/22/2021 CT scan Technique: Multiple routine MRI sequences through the upper chest were obtained with specific attention being given to the left brachial plexus. Pre-and postcontrast images were evaluated.8.5 cc of Gadavist intravenous contrast was utilized without incident. Multiplanar images were reviewed. Findings: There is diffuse soft tissue edema with epicenter in the left supraclavicular region. There is associated edema within the visualized aspects of the left scalene muscles extending posteriorly into the left rhomboid muscles. Medial aspect of this edema involves the scalene muscles extending into the visualized left axilla laterally. Edema does extend into the inferior neck superiorly and to the lung apex inferiorly. The extent of edema is much better demonstrated on the MRI than on the recent CT scan. Although there is soft tissue edema present, I do not appreciate any discrete drainable collection. I'm uncertain if this represents infectious phlegmonous changes or less likely posttraumatic/hemorrhagic changes. Infectious etiologies would be suspected. Although the edema does directly abut the clavicle and adjacent left first rib, I do not appreciate any obvious bony destructive lesions. The visualized left subclavian artery and left subclavian vein appear to be grossly patent without obvious thrombosis or occlusion. The visualized left jugular vein is grossly patent. Evaluation of the brachial plexus nerve roots is difficult due to the extensive edema along the course of the brachial plexus nerve roots. On the larger [id number] coronal STIR image, there is milder edema within the contralateral right supraclavicular region. MR/MR chest wo/w con Impression: There is significant soft tissue edema and enhancement with epicenter in the left supraclavicular region. This edema and abnormal enhancement involves the scalene muscles and left rhomboid muscle posteriorly. Although the signal does directly abut the clavicle and first rib I do not appreciate any acute bony destructive lesion. Unfortunately the brachial plexus nerve roots are unable to be from this extensive signal abnormality. In the acute setting, infectious etiology/phlegmonous change would be suspected. I do not appreciate any discrete drainable abscess. Posttraumatic edema and/or evolving hematoma could have a similar appearance and should be clinically correlated. Of note there is milder edema seen in the contralateral supraclavicular fossa on the large [id number] coronal images.
--- NOTE | ~2021-09-21 | CT_ITS ---
EXAMINATION: CT ANGIOGRAM NECK AND HEAD CLINICAL INFORMATION: Cannot move left arm COMPARISON: Noncontrast head CT from earlier today TECHNIQUE: Test bolus sequences followed by intravenous administration 70 mL of Omnipaque 350. Helical imaging was performed in the axial plane from the thoracic inlet to the skull vertex. Delayed postcontrast imaging of the head was also performed. The data was processed at the ultrasound technologist's workstation for generation of MIP sequences. Angled MIPs and volume rendered reformatted images were also generated at an offline 3D workstation. Stenoses are assessed in accordance with NASCET criteria unless otherwise indicated. DOSE LOWERING TECHNIQUES: This CT examination was performed using dose optimization techniques as appropriate, variously including the following: - Automated exposure control - Adjustment of mA and/or kV according to patient size (this includes techniques or standardized protocols for targeted exams were dose is matched to indication/reason for exam; i.e. extremities or head) - Use of iterative reconstruction technique DLP: 1461 mGy-cm FINDINGS: Neck CTA: There is a classic 3 vessel branching pattern of the aortic arch. Normal appearance of the visualized aortic arch and proximal branches. No evidence of stenosis at the branch origins. Both vertebral arteries are widely patent throughout their extracranial cervical course. Normal appearance of the common and internal carotid arteries without focal stenosis. Brain CTA: Normal appearance of the intradural vertebral arteries. Normal appearance of the basilar and superior cerebellar arteries. Normally opacified posterior cerebral arteries bilaterally. Normal appearance of the intradural internal carotid arteries without focal stenosis. Normal appearance of the anterior cerebral and middle cerebral arteries without focal occlusion or stenosis. Normal anterior communicating artery. Normal arborization of the middle cerebral arteries. CT Head: No intracranial mass, hemorrhage, extra-axial collection, or midline shift. The arizmendi-white matter differentiation is preserved. No pathologic intra-axial enhancement or regional oligemia. No hydrocephalus. The mastoid air cells and paranasal sinuses remain well aerated. There is soft tissue swelling in the left zygomatic region. CT Neck: There is subcutaneous edema and soft tissue swelling in the left supraclavicular region. The thyroid gland appears unremarkable. There is disc space narrowing and endplate osteophyte formation in the mid to lower cervical spine. Upper Chest: No abnormalities in the visualized lung apices or upper mediastinum. CT/CT angio head neck IMPRESSION: 1. No acute vascular abnormality identified in the head or neck. 2. Soft tissue swelling in the left zygomatic and supraclavicular regions.
[2021-09-21 21:41] VITALS: BP 124/86; PULSE 88; O2SAT 97
[2021-09-21 21:42] VITALS: BP 131/74; PULSE 94; RESP 19; TEMP 36.6; O2SAT 95; BMI 26.2
[2021-09-21 23:49] VITALS: BP 130/82; PULSE 94; RESP 16; TEMP 36.6; O2SAT 98
[2021-09-22] VITALS (8 sets, daily range): BP systolic 126–141; BP diastolic 65–81; PULSE 78–99; RESP 15–20; TEMP 36–37.5; O2SAT 95–98
--- NOTE | 2021-09-22 00:05 | ED_ITS ---
HPI - Extremity Problem General Chief complaint: Extremity Injury, Upper Stated complaint: Left Arm Pain/Swolling Time Seen by Provider: 09/21/21 22:59 Source: patient Mode of arrival: ambulatory Limitations: no limitations History of Present Illness HPI Narrative: Patient comes to emergency room complaining of being unable to move his left arm. Patient states that he drank a lot of alcohol over night, went to sleep around 06:00 (09/21/21), woke up approximately at 20:00, immediately noticed that he could not move his left arm. Patient states that he has no sensation in his left arm at all, no strength. Related Data Home Medications Medication Instructions Recorded Confirmed alprazolam 1 mg tablet 1 tab PO QID PRN 01/13/21 01/13/21 aripiprazole 20 mg tablet 1 tab PO DAILY 01/13/21 01/13/21 buprenorphine 12 mg-naloxone 3 mg 1 strip SUBLINGUAL BID 01/13/21 01/13/21 sublingual film (Suboxone) dextroamphetamine-amphetamine 30 1 tab PO BID 01/13/21 01/13/21 mg tablet dextroamphetamine-amphetamine ER 1 cap PO DAILY 01/13/21 01/13/21 30 mg 24hr capsule,extend release (Adderall XR) divalproex 500 mg tablet,extended 1 tab PO BID 01/13/21 01/13/21 release 24 hr ibuprofen 800 mg tablet 1 tab PO TID PRN 01/13/21 01/13/21 naloxone 4 mg/actuation nasal 1 spray INTRANASAL ONCE 01/13/21 01/13/21 spray (Narcan) oxcarbazepine 600 mg tablet 1 tab PO BID 01/13/21 01/13/21 prazosin 5 mg capsule 2 cap PO BEDTIME 01/13/21 01/13/21 trazodone 50 mg tablet 100 mg PO BEDTIME 01/13/21 01/13/21 Allergies Allergy/AdvReac Type Severity Reaction Status Date / Time morphine Allergy Itching Verified 01/12/21 17:49 Review of Systems Review of Systems: Constitutional : No Weight loss, No Fever, No Chills, No Night Sweats, No Fatigue, No Malaise ENT/Mouth : No Hearing loss, No Ear Pain, No Nasal Congestion, No Sinus Pain, No Hoarseness, No sore throat, No Rhinorrhea, No Swallowing Difficulty Eyes: No Eye Pain, No Swelling, No Redness, No Foreign Body, No Discharge, No Vision Changes Cardiovascular : No Chest Pain, No SOB, No Dyspnea on Exertion, No Orthopnea, No Edema, No Palpitations Respiratory : No Cough, No Sputum, No Wheezing, No Smoke Exposure, No Dyspnea Gastrointestinal : No Nausea, No Vomiting, No Diarrhea, No Constipation, No abdominal Pain, No Hematochezia, No Melena Genitourinary : no irregular bleeding, No Dysuria, No Urinary Frequency, No Hematuria, No Urinary Incontinence, No Urgency, No Flank Pain, No Urinary Flow Changes, No Hesitancy Musculoskeletal : Unable to move the left arm at all, no sensation in left arm Skin : No Skin Lesions, No rash Neuro : No Weakness, No Numbness, No Paresthesias, No Loss of Consciousness, No Dizziness, No Headache Psych : No Anxiety/Panic, No Depression, No SI/HI/AH/VH, No Social Issues, Heme/Lymph: No Bruising, No Bleeding,No Lymphadenopathy Endocrine : No Polyuria, No Polydipsia, No Temperature Intolerance [facility] Past Medical History Medical History ADHD Anxiety Bipolar 1 disorder Depression IV drug user No known health problems Social History Social History Household Members: None Housing: Homeless Alcohol intake: unknown Patient Tobacco Use Status: Current someday Tobacco user Substance Use Type: Amphetamines, Crack/Cocaine, Heroin, IV Drugs, Opiates, Painkillers and Prescription Drugs Advance Directives: No Advance Directives Information Provided: Yes service: No Current occupational status: employed Physical Exam Vital Signs: Vital Signs: Last Vital Signs Temp 97.8 F 09/21/21 23:49 Pulse 94 09/21/21 23:49 Resp 16 09/21/21 23:49 BP 130/82 09/21/21 23:49 Pulse Ox 98 09/21/21 23:49 BMI result Body Mass Index 26.2 Const: Other: Appearance: Alert. Oriented X3. No acute distress. Eyes: Pupils equal, round and reactive to light. ENT: Pharynx normal. Neck: Normal inspection. Neck supple. No lymph nodes noted. No crepitus CVS: Normal heart rate and rhythm. Pulses normal. Normal S1 and S2 Respiratory: No respiratory distress. Breath sounds normal. No Wheezing. No rales Abdomen: Soft and nontender. No rigidity. No distention. Skin: Skin warm and dry. Normal skin color. Normal skin turgor. Extremities: No lower extremity edema. No Lacerations. No Rash seen neuro below Neuro: Oriented X 3. Patient is unable to move his fingers, wrist, flex the elbow or lift his arm at all. Patient states that he has no sensation whatsoever in the whole arm Psych: calm, cooperative, normal affect NIH Stroke Scale Level of Consciousness: Alert Level of Consciousness Questions: Answers both questions correctly Level of Consciousness Commands: Performs both tasks correctly Best Gaze: Normal Visual: No visual loss Facial Palsy: Normal Motor Arm (Right): No drift Motor Arm (Left): No movement Motor Leg (Right): No drift Motor Leg (Left): No drift Limb Ataxia: Absent Sensory: Severe to total sensory loss Best Language: No aphasia Dysarthia: Normal Extinction and Inattention: No abnormality Score: 6 Course Course Course Narrative: Patient admits to using IV drugs and alcohol prior to arrival. Patient slept for over 14 hours in the same position over his left arm. It is likely that patient's symptoms are caused by Wednesday night palsy. However, patient displays loss of function on the entire left arm , including both the radial and ulnar nerve. Usually, Wednesday night palsy affects he mostly the radial nerve. CT scan and CTA pending. Since it is unclear when patient's symptoms actually started, patient woke up with the symptoms, patient is not a candidate for tPA even if this would be a stroke. CTA is pending. I discussed the patient with Dr. Jaen, pt will be admitted for obs, pending the CTA. Patient has an elevated CPK of a 8000, no CHEKO. Sign-out given to Dr. Sainz MDM - Extremity (Nontraumatic) Lab Data Result diagrams: 09/22/21 00:49 09/22/21 00:49 Labs: Lab Results 09/22/21 09/22/21 09/22/21 Range/Units 00:49 00:49 00:49 WBC 11.7 H (4.8-10.8) X10*3/uL RBC 4.90 (4.60-5.80) X10*6/uL Hgb 14.4 (14.0-18.0) g/dl Hct 43.2 (42.0-52.0) % MCV 88.2 (80.0-98.0) fL MCH 29.4 (27.0-33.0) pg MCHC 33.3 (31.0-36.0) g/dl RDW 13.2 (11.0-16.0) % Plt Count 369 (160-400) X10*3/uL MPV 8.6 L (9.4-12.4) fL Immature Gran % (Auto) 0.3 (0.0-0.4) % Neut % (Auto) 73.8 H (45-73) % Lymph % (Auto) 15.9 L (20-40) % [place] % (Auto) 9.5 (2-11) % Eos % (Auto) 0.3 (0-4) % Baso % (Auto) 0.2 (0-2) % Lymph # (Auto) 1.9 (1.2-4.9) X10*3/uL [place] # (Auto) 1.1 (0.1-1.2) X10*3/uL Eos # (Auto) 0.0 (0.0-0.4) X10*3/uL Baso # (Auto) 0.0 (0.0-0.2) X10*3/uL Abs Immat Gran (auto) 0.03 (0.00-0.03) X10*3/uL Absolute Neuts (auto) 8.7 H (2.0-8.3) x10*3/uL Absolute Nucleated RBC 0.000 (0.0-0.012) X10*3/uL Nucleated RBC % (auto) 0.0 (0.0-0.2) /100WBC Sodium 136 (135-145) mmol/L Potassium 4.5 (3.3-5.1) mmol/L Chloride 101 (96-108) mmol/L Carbon Dioxide 24 (22-29) mmol/L Anion Gap 16 (12-20) BUN 14 (9-16) mg/dL Creatinine 0.88 (0.5-1.4) mg/dL Estim Creat Clear Calc 117.5 Estimated GFR > 60 Random Glucose 130 H D (60-115) mg/dL Calcium 9.5 (8.4-10.2) mg/dL Magnesium 2.3 (1.6-2.6) mg/dL Total Bilirubin 1.0 (0.0-1.0) mg/dL Direct Bilirubin 0.5 (0.0-0.5) mg/dL AST 176 H (5-37) U/L ALT 132 H (0-40) U/L Alkaline Phosphatase 87 (39-117) U/L Total Creatine Kinase 7996 H (38-174) U/L Total Protein 7.0 (6.5-8.0) g/dL Albumin 3.8 (3.5-5.0) g/dL Ethyl Alcohol < 10 mg/dL Imaging Data Head CT: Radiologist's impression: There is no evidence of acute intracranial hemorrhage or territorial infarction. No abnormal mass effect or midline shift is seen. Devi to white matter differentiation is well preserved. No extra-axial fluid collections are identified. The ventricles are normal in size. There is no abnormal attenuation within the brain parenchyma. The osseous structures and soft tissues are normal. The mastoid air cells and visualized portions of the paranasal sinuses are well aerated. ? CT/CT head/brain wo con IMPRESSION: No acute intracranial pathology. Discharge Plan Discharge Clinical Impression: Wednesday night nerve palsy, Elevated CPK Patient Disposition: Admitted as Observation Prescriptions: No Action trazodone 50 mg tablet 100 mg PO BEDTIME 0RF ibuprofen 800 mg tablet 1 tab PO TID PRN (Reason: Pain (Scale Score 1-3)) 0RF alprazolam 1 mg tablet 1 tab PO QID PRN (Reason: Anxiety) 0RF dextroamphetamine-amphetamine 30 mg tablet 1 tab PO BID 0RF prazosin 5 mg capsule 2 cap PO BEDTIME 0RF divalproex 500 mg tablet extended release 24 hr 1 tab PO BID 0RF oxcarbazepine 600 mg tablet 1 tab PO BID 0RF dextroamphetamine-amphetamine [Adderall XR] 30 mg capsule,extended release 24hr 1 cap PO DAILY 0RF aripiprazole 20 mg tablet 1 tab PO DAILY 0RF buprenorphine-naloxone [Suboxone] 12-3 mg film 1 strip sublingual BID 0RF Narcan 4 mg/actuation spray,non-aerosol 1 spray intranasal ONCE 0RF
[2021-09-22 00:54] LABS: Basophils Percent Auto 0.2 % (0-2); Eosinophils Percent Auto 0.3 % (0-4); Hematocrit 43.2 % (42.0-52.0); Hemoglobin 14.4 g/dl (14.0-18.0); Imm Gran Abs Auto 0.03 X10*3/uL (0.00-0.03); Imm Gran Pct Auto 0.3 % (0.0-0.4); Lymphocytes Absolute Auto 1.9 X10*3/uL (1.2-4.9); Lymphocytes Percent Auto 15.9 % (20-40); MANUAL DIFF FLAG NO; Mean Corpuscular HGB Conc 33.3 g/dl (31.0-36.0); Mean Corpuscular Hemoglobin 29.4 pg (27.0-33.0); Mean Corpuscular Volume 88.2 fL (80.0-98.0); Mean Platelet Volume 8.6 fL (9.4-12.4); Monocytes Absolute Auto 1.1 X10*3/uL (0.1-1.2); Monocytes Percent Auto 9.5 % (2-11); Neutrophils Absolute Auto 8.7 x10*3/uL (2.0-8.3); Neutrophils Percent Auto 73.8 % (45-73); Platelet Count 369 X10*3/uL (160-400); Red Cell Distribution Width 13.2 % (11.0-16.0); White Blood Count 11.7 X10*3/uL (4.8-10.8)
[2021-09-22 01:11] LABS: Ethanol < 10 mg/dL
[2021-09-22 01:16] LABS: Alanine Aminotransferase 132 U/L (0-40); Albumin Level 3.8 g/dL (3.5-5.0); Alkaline Phosphatase 87 U/L (39-117); Anion Gap 16 (12-20); Aspartate Amino Transferase 176 U/L (5-37); Bilirubin Direct 0.5 mg/dL (0.0-0.5); Blood Urea Nitrogen 14 mg/dL (9-16); Calcium 9.5 mg/dL (8.4-10.2); Carbon Dioxide 24 mmol/L (22-29); Chloride 101 mmol/L (96-108); Creatinine Clr Calc Pharmacy 117.5; Estimated Glomerular Filt Rate > 60; Glucose Random 130 mg/dL (60-115); Magnesium 2.3 mg/dL (1.6-2.6); Potassium 4.5 mmol/L (3.3-5.1); Sodium 136 mmol/L (135-145)
[2021-09-22] MEDS: iohexoL 350 MG/ML 100 ML INFUS..BTL 70 ML IV (01:48)
[2021-09-22] MEDS: 0.9 % Sodium Chloride 1,000 ML 999 ML IVCONT (02:44)
[2021-09-22 03:36] LABS: COVID-19 Test Negative (Negative)
--- NOTE | 2021-09-22 04:46 | PC.NURSE ---
I assumed nursing care of Bandar upon his arrival to bed 8 from the waiting room. He presents for evaluation of LUE numbness and decreased Rom that began after he slept on his left arm and woke up with the symptoms. The pt admits to numbness/tingling on his left arm from his elbow down to his left hand. He has normal sensation above his left elbow. He denies any injury. Bandar is alert, oriented x 3, calm and cooperative and makes eye contact with RN. His respirations are non-labored, RR WNL, he speaks in full sentences, no cyanosis, room air sat's WNL. NO nausea. No vomiting. No fevers or chills. He denies any change in his bowel or bladder patterns. He is TBADM and verbalizes an understanding of this. We will continue to monitor Bandar.
[2021-09-22 05:15] LABS: Appearance Urine CLEAR; Color Urine YELLOW; Glucose Urine UA NEG (NEG); Leukocyte Esterase Urine NEG (NEG); Nitrite Urine NEG (NEG); PH 6.5 (5.0-8.0); UACC Culture Trigger NO; Urine Blood TRACE (NEG); Urine Ketones 5 MG/DL (NEG); Urine Protein NEG (NEG-TRACE)
[2021-09-22 05:25] LABS: Bacteria Urine 1+ /LPF; Squamous Epithelial Cell Urine 1+ /LPF
[2021-09-22 05:31] LABS: Amphetamine Screen Urine Not Detected (Not Detect); Barbiturates, Urine Not Detected (Not Detect); Benzodiazepines Screen Urine POSITIVE (Not Detect); Cannabinoid Screen Urine POSITIVE (Not Detect); Cocaine Screen Urine POSITIVE (Not Detect); Fentanyl, urine POSITIVE (Not Detect); Opiate Screen Urine POSITIVE (Not Detect); Phencyclidine Screen Urine Not Detected (Not Detect)
[2021-09-22 06:10] LABS: MANUAL DIFF FLAG NO
[2021-09-22 06:14] LABS: Basophils Percent Auto 0.3 % (0-2); Eosinophils Percent Auto 0.4 % (0-4); Hematocrit 40.5 % (42.0-52.0); Hemoglobin 13.7 g/dl (14.0-18.0); Imm Gran Abs Auto 0.02 X10*3/uL (0.00-0.03); Imm Gran Pct Auto 0.2 % (0.0-0.4); Lymphocytes Absolute Auto 1.7 X10*3/uL (1.2-4.9); Lymphocytes Percent Auto 18.4 % (20-40); Mean Corpuscular HGB Conc 33.8 g/dl (31.0-36.0); Mean Corpuscular Hemoglobin 29.8 pg (27.0-33.0); Mean Corpuscular Volume 88.2 fL (80.0-98.0); Mean Platelet Volume 8.6 fL (9.4-12.4); Monocytes Percent Auto 10.6 % (2-11); Neutrophils Absolute Auto 6.3 x10*3/uL (2.0-8.3); Neutrophils Percent Auto 70.1 % (45-73); Platelet Count 346 X10*3/uL (160-400); Red Blood Count 4.59 X10*6/uL (4.60-5.80); Red Cell Distribution Width 13.2 % (11.0-16.0)
[2021-09-22 06:36] LABS: Anion Gap 11 (12-20); Blood Urea Nitrogen 10 mg/dL (9-16); Calcium 8.8 mg/dL (8.4-10.2); Carbon Dioxide 25 mmol/L (22-29); Chloride 103 mmol/L (96-108); Creatinine Clr Calc Pharmacy 129.2; Estimated Glomerular Filt Rate > 60; Glucose Random 111 mg/dL (60-115); Potassium 3.9 mmol/L (3.3-5.1); Sodium 135 mmol/L (135-145)
--- NOTE | 2021-09-22 06:51 | PM.IMHP ---
History of Present Illness Date of Service: 09/22/21 Chief Complaint: Left arm paralysis 36-year-old male past medical history of polysubstance abuse who presents to the hospital with complaints of left arm paralysis. Patient reports that he went on a binge drug use including cocaine and then went and slept from 06:00 to 20:00 the same day, he found himself sleeping on his left arm, and woke up with complete paralysis of his left arm. Patient reports that he lost sensation as well as ability to move his arm completely. His never had this experience before, reports no difficulty walking numbness tingling or weakness in his lower extremities, right extremity intact. He has no slurred speech, no loss of vision or change in vision, no headache, and no numbness tingling on his face. Patient otherwise denies any, no shortness of breath, no abdominal pain nausea or vomiting, no diarrhea constipation, no urinary symptoms and no lower extremity edema. On arrival to the ED patient hemodynamically stable no significant abnormal vitals Labs were significant for WBC count of 11.7, otherwise unremarkable. Review of Systems Review of Systems: Yes all other systems are reviewed and are negative [facility] Medical History ADHD Anxiety Bipolar 1 disorder Depression IV drug user No known health problems Family History (Updated 09/22/21 @ 07:03 by Mitchell Nielsen MD) Other No family history of coronary artery disease Social History Household Members: None Housing: Homeless Alcohol intake: current Alcohol intake frequency: does not drink Patient Tobacco Use Status: Current everyday Tobacco user Use of substances other than those prescribed or required for medical reasons: Yes Substance Use Type: Amphetamines, Crack/Cocaine, Heroin, IV Drugs, Opiates, Painkillers and Prescription Drugs Advance Directives: No Advance Directives Information Provided: Yes service: No Current occupational status: employed Meds Allergies Allergy/AdvReac Type Severity Reaction Status Date / Time morphine Allergy Itching Verified 01/12/21 17:49 Active Medications: Current Medications Acetaminophen (Acetaminophen 325 Mg Tablet) 650 mg PO Q6H PRN PRN Reason: Pain, Mild (Pain Scale 1-3) Docusate Sodium (Docusate Sodium 100 Mg Capsule) 100 mg PO DAILY PRN PRN Reason: Constipation Ondansetron HCl (Ondansetron Hcl 4 Mg/2 Ml Vial) 4 mg IVPUSH Q8H PRN PRN Reason: Nausea and Vomiting Sodium Chloride (0.9 % Sodium Chloride Flush 3 Ml Syringe) [facility] Medications Medication Instructions Recorded Confirmed Last Taken Type alprazolam 1 mg tablet 1 tab PO QID PRN 01/13/21 09/22/21 Unknown History aripiprazole 20 mg tablet 1 tab PO DAILY 01/13/21 09/22/21 Unknown History buprenorphine 12 mg-naloxone 3 mg 1 strip SUBLINGUAL BID 01/13/21 09/22/21 Unknown History sublingual film (Suboxone) dextroamphetamine-amphetamine 30 1 tab PO BID 01/13/21 09/22/21 Unknown History mg tablet dextroamphetamine-amphetamine ER 1 cap PO DAILY 01/13/21 09/22/21 Unknown History 30 mg 24hr capsule,extend release (Adderall XR) ibuprofen 800 mg tablet 1 tab PO TID PRN 01/13/21 09/22/21 Unknown History naloxone 4 mg/actuation nasal 1 spray INTRANASAL ONCE 01/13/21 09/22/21 Unknown History spray (Narcan) oxcarbazepine 600 mg tablet 1 tab PO BID 01/13/21 09/22/21 Unknown History prazosin 5 mg capsule 2 cap PO BEDTIME 01/13/21 09/22/21 Unknown History Physical Exam Vital Signs and Narrative: Vital Signs: Last Vital Signs Temp 98.0 F 09/22/21 05:18 Pulse 84 09/22/21 05:18 Resp 16 09/22/21 05:18 BP 141/81 H 09/22/21 05:18 Pulse Ox 97 09/22/21 05:18 BMI result Body Mass Index 26.2 Const: General: cooperative and no acute distress Orientation/consciousness: patient oriented x3 Eyes: General: appearance normal, both eyes and all related structures Pupils: Equal, round and reactive pupils present Resp: Effort & Inspection: normal respiratory effort Cardio: Rate: regular rate Rhythm: regular rhythm GI: Palpation (GI): Soft to palpation Auscultation: normal bowel sounds Skin: General skin exam: no rashes or lesions noted Neuro: General: patient oriented x3 Cranial nerves: Yes Equal, round and reactive pupils present Cognition (Neuro): normal cognition Extrem: Other: Left arm complete paralysis, no sensation, will to move his fingers, there is significant edema of the upper arm with no tenderness, no erythema, General: Yes no pedal edema Results Labs CBC and Chem 7: 09/22/21 06:04 09/22/21 06:04 Labs: Laboratory Results - last 24 hr 09/22/21 09/22/21 09/22/21 00:49 00:49 00:49 MCV 88.2 MCH 29.4 MCHC 33.3 RDW 13.2 Plt Count 369 MPV 8.6 L Immature Gran % (Auto) 0.3 Neut % (Auto) 73.8 H Lymph % (Auto) 15.9 L [place] % (Auto) 9.5 Eos % (Auto) 0.3 Baso % (Auto) 0.2 Lymph # (Auto) 1.9 Pierce # (Auto) 1.1 Eos # (Auto) 0.0 Baso # (Auto) 0.0 Abs Immat Gran (auto) 0.03 Absolute Neuts (auto) 8.7 H Absolute Nucleated RBC 0.000 Nucleated RBC % (auto) 0.0 Anion Gap 16 Estim Creat Clear Calc 117.5 Estimated GFR > 60 Random Glucose 130 H D Calcium 9.5 Magnesium 2.3 Total Bilirubin 1.0 Direct Bilirubin 0.5 AST 176 H ALT 132 H Alkaline Phosphatase 87 Total Creatine Kinase 7996 H Total Protein 7.0 Albumin 3.8 Urine Color Urine Appearance Urine pH Ur Specific [place] Urine Protein Urine Glucose (UA) Urine Ketones Urine Blood Urine Nitrite Ur Leukocyte Esterase Urine RBC Urine WBC Ur Squamous Epith Cells Urine Bacteria Urine Opiates Screen Urine Fentanyl Screen Ur Barbiturates Screen Ur Phencyclidine Scrn Ur Amphetamines Screen U Benzodiazepines Scrn Urine Cocaine Screen U Marijuana (THC) Screen Ethyl Alcohol < 10 COVID-19 (MADELEINE) COVID-19 Clin Com 09/22/21 09/22/21 09/22/21 03:10 05:09 05:09 MCV MCH MCHC RDW Plt Count MPV Immature Gran % (Auto) Neut % (Auto) Lymph % (Auto) [place] % (Auto) Eos % (Auto) Baso % (Auto) Lymph # (Auto) [place] # (Auto) Eos # (Auto) Baso # (Auto) Abs Immat Gran (auto) Absolute Neuts (auto) Absolute Nucleated RBC Nucleated RBC % (auto) Anion Gap Estim Creat Clear Calc Estimated GFR Random Glucose Calcium Magnesium Total Bilirubin Direct Bilirubin AST ALT Alkaline Phosphatase Total Creatine Kinase Total Protein Albumin Urine Color YELLOW Urine Appearance CLEAR Urine pH 6.5 Ur Specific [place] 1.010 Urine Protein NEG Urine Glucose (UA) NEG Urine Ketones 5 Urine Blood TRACE Urine Nitrite NEG Ur Leukocyte Esterase NEG Urine RBC 1-4 Urine WBC 1-4 Ur Squamous Epith Cells 1+ Urine Bacteria 1+ Urine Opiates Screen POSITIVE H Urine Fentanyl Screen POSITIVE H Ur Barbiturates Screen Not Detected Ur Phencyclidine Scrn Not Detected Ur Amphetamines Screen Not Detected U Benzodiazepines Scrn POSITIVE H Urine Cocaine Screen POSITIVE H U Marijuana (THC) Screen POSITIVE H Ethyl Alcohol COVID-19 (MADELEINE) Negative COVID-19 10-20 Media Com See Note 09/22/21 09/22/21 06:04 06:04 MCV 88.2 MCH 29.8 MCHC 33.8 RDW 13.2 Plt Count 346 MPV 8.6 L Immature Gran % (Auto) 0.2 Neut % (Auto) 70.1 Lymph % (Auto) 18.4 L [place] % (Auto) 10.6 Eos % (Auto) 0.4 Baso % (Auto) 0.3 Lymph # (Auto) 1.7 Pierce # (Auto) 1.0 Eos # (Auto) 0.0 Baso # (Auto) 0.0 Abs Immat Gran (auto) 0.02 Absolute Neuts (auto) 6.3 Absolute Nucleated RBC 0.000 Nucleated RBC % (auto) 0.0 Anion Gap 11 L Estim Creat Clear Calc 129.2 Estimated GFR > 60 Random Glucose 111 Calcium 8.8 D Magnesium Total Bilirubin Direct Bilirubin AST ALT Alkaline Phosphatase Total Creatine Kinase Total Protein Albumin Urine Color Urine Appearance Urine pH Ur Specific [place] Urine Protein Urine Glucose (UA) Urine Ketones Urine Blood Urine Nitrite Ur Leukocyte Esterase Urine RBC Urine WBC Ur Squamous Epith Cells Urine Bacteria Urine Opiates Screen Urine Fentanyl Screen Ur Barbiturates Screen Ur Phencyclidine Scrn Ur Amphetamines Screen U Benzodiazepines Scrn Urine Cocaine Screen U Marijuana (THC) Screen Ethyl Alcohol COVID-19 (MADELEINE) COVID-19 Clin Com Imaging Radiologist's Impressions: Impressions Head CT 09/22/21 00:17 IMPRESSION: No acute intracranial pathology. Head/Neck CTA 09/22/21 01:45 IMPRESSION: 1. No acute vascular abnormality identified in the head or neck. 2. Soft tissue swelling in the left zygomatic and supraclavicular regions. Assessment and Plan (1) Rhabdomyolysis: Status: Acute (2) Wednesday night nerve palsy: Status: Acute Plan 28-year-old male with past medical history of polysubstance abuse, ADHD, who presents to the hospital after a night of cocaine and heroin abuse with complete paralysis of his left arm # left arm paralysis - likely secondary to Wednesday nerve palsy - CT angiogram shows soft tissue swelling in the left zygomatic and supraclavicular region - at this time will consult neurology for possible nerve conduction study # rhabdomyolysis - secondary to muscle damages patient was sleeping for more than 14 hours - will treat with IV fluids - follow CPK # polysubstance abuse - monitor for withdrawal # ADHD - Continue home medications DVT prophylaxis: Early ambulation Quality Stroke Does the patient have a stroke diagnosis?: No VTE Prior VTE?: No VTE Risk Level:: Medical - low VTE Device Contraindication: Treatment Not Indicated VTE Drug Contraindication: Treatment Not Indicated
--- NOTE | 2021-09-22 07:36 | PHA.MEDREC ---
Pharmacy Consult ? Medication Reconciliation Pharmacy has completed the medication reconciliation. Patient reports taking Adderal 30 mg which has not been filled since November 2020. He has been filling Adderall 20 mg at his pharmacy and this was also confirmed on the PDMP that patient has been recently filling Adderal 20 mg instead of 30 mg. Patient reports taking his xanax schedule through out the day. Zuleyka Arboleda, IldefonsoD
[2021-09-22] MEDS: 0.9 % Sodium Chloride Flush 3 ML SYRINGE IVFLUSH ×2 (07:41→17:02)
[2021-09-22] MEDS: Lactated Ringers 1,000 ML 100 ML IVCONT ×2 (07:41→19:30)
--- NOTE | 2021-09-22 08:00 | P.EN_ITS ---
Event Note Date of Service: 09/22/21 Event Note: Patient was seen examined by hospitalist service this morning, seen and examined again. Patient admitted for left arm weakness, rhabdomyolysis, polysubstance abuse. Physical exam: Unchanged from H&P. Assessment and plan: Coordinated In H&P note. Left arm weakness-seen by Neurology and MRI added Patient also seen by Ortho-less likely compartment syndrome-no surgical intervention currently. Neuro saw the patient question possible brachial plexopathy-recommended Solu- Medrol 1 g daily Rhabdomyolysis possibly related to cocaine use, renal function seems fine, continue IV fluids monitor BMP and CPK daily. Will continue to monitor.
[2021-09-22] MEDS: ARIPiprazole 20 MG TABLET PO (10:20)
[2021-09-22] MEDS: Amphetamine Mixed Salts 20 MG TABLET PO ×2 (10:20→21:53)
[2021-09-22] MEDS: OXcarbazepine 300 MG TABLET 600 MG PO ×2 (10:20→21:54)
[2021-09-22] MEDS: ALPRAZolam 0.5 MG TABLET 1 MG PO ×4 (10:20→21:54)
--- NOTE | 2021-09-22 11:59 | MHC.RECOVRN ---
Met with pt in 375 after pt expressed desire to initiate methadone. Pt laying in bed, eyes closed, easily awoken. Pt reports using heroin, 1/2-1 pack daily, last use yesterday, as well as cocaine, 3 grams daily. Denies alcohol use. Pt is currently prescribed Suboxone, however, would like to transition to methadone and be linked to an OTP in [place]. Pt does not have an ID with him, will attempt to obtain one. Pt currently experiencing withdrawal symptoms including restlessness, sweating, body aches, upset stomach. Discussed with Mounika Bradley APRN. Pt to receive 25 mg methadone. Will continue to follow.
--- NOTE | 2021-09-22 14:10 | P.CNNE_ITS ---
History of Present Illness Data of Consult Service Date: 09/22/21 Primary Care Provider: Unknown Physician HPI Reason for consult: Left arm we 36 years old man with polysubstance abuse so apparently had binge of drug use and slept long hours on his left arm. When he woke up he could not move or feel his left arm. He said that he still could not move his left arm. There was no pain. Review of Systems Review of Systems: Recent drug PMFSH Past Medical History Medical History ADHD Anxiety Bipolar 1 disorder Depression IV drug user No known health problems Family History Family History (Updated 09/22/21 @ 07:03 by Mitchell Nielsen MD) Other No family history of coronary artery disease Social History Social History Household Members: Other Housing: Homeless Do you presently have visiting nurse or other home services: No Alcohol intake: current Alcohol intake frequency: does not drink Patient Tobacco Use Status: Current everyday Tobacco user Tobacco use type: Cigarette Cigarette Packs Per Day: 0.5 Cigarettes Per Day: 10.0 Substance Use Type: Crack/Cocaine and Heroin service: No Current occupational status: employed Meds Allergies Allergy/AdvReac Type Severity Reaction Status Date / Time morphine Allergy Itching Verified 01/12/21 17:49 Active Medications: Current Medications Acetaminophen (Acetaminophen 325 Mg Tablet) 650 mg PO Q6H PRN PRN Reason: Pain, Mild (Pain Scale 1-3) Alprazolam (Alprazolam 0.5 Mg Tablet) 1 mg PO QID [facility] Last Admin: 09/22/21 10:20 Dose: 1 mg Documented by: Amphetamine/Dextroamphetamine (Amphetamine Mixed Salts 20 Mg Tablet) 20 mg PO BID [facility] Last Admin: 09/22/21 10:20 Dose: 20 mg Documented by: Aripiprazole (Aripiprazole 20 Mg Tablet) 20 mg PO DAILY [facility] Last Admin: 09/22/21 10:20 Dose: 20 mg Documented by: Docusate Sodium (Docusate Sodium 100 Mg Capsule) 100 mg PO DAILY PRN PRN Reason: Constipation Lactated Ringer's (Lr) 1,000 mls @ 100 mls/hr IVCONT .Q10H [facility] Last Admin: 09/22/21 07:41 Dose: 100 mls/hr Documented by: Methylprednisolone Sodium Succinate (Methylprednisolone Sod Succ 40 Mg/Ml Vial) 40 mg IVPUSH Q8H [facility] Ondansetron HCl (Ondansetron Hcl 4 Mg/2 Ml Vial) 4 mg IVPUSH Q8H PRN PRN Reason: Nausea and Vomiting Oxcarbazepine (Oxcarbazepine 300 Mg Tablet) 600 mg PO BID [facility] Last Admin: 09/22/21 10:20 Dose: 600 mg Documented by: Prazosin HCl (Prazosin Hcl 5 Mg Capsule) 10 mg PO BEDTIME MAGDA; Protocol Sodium Chloride (0.9 % Sodium Chloride Flush 3 Ml Syringe) 3 ml IVFLUSH QSHIFT [facility] Last Admin: 09/22/21 07:41 Dose: 3 ml Documented by: Home Medications Medication Instructions Recorded Confirmed Last Taken Type alprazolam 1 mg tablet 1 tab PO QID 01/13/21 09/22/21 09/20/21 History aripiprazole 20 mg tablet 1 tab PO DAILY 01/13/21 09/22/21 09/20/21 History buprenorphine 12 mg-naloxone 3 mg 1 strip SUBLINGUAL BID 01/13/21 09/22/21 09/20/21 History sublingual film (Suboxone) ibuprofen 800 mg tablet 1 tab PO TID PRN 01/13/21 09/22/21 09/20/21 History naloxone 4 mg/actuation nasal 1 spray INTRANASAL ONCE 01/13/21 09/22/21 09/20/21 History spray (Narcan) oxcarbazepine 600 mg tablet 600 mg PO BID 01/13/21 09/22/21 09/20/21 History prazosin 5 mg capsule 2 cap PO BEDTIME 01/13/21 09/22/21 09/20/21 History dextroamphetamine-amphetamine 20 20 mg PO BID 09/22/21 09/22/21 09/20/21 History mg tablet Physical Exam Vital Signs: Vital Signs: Last Vital Signs Temp 99.4 F 09/22/21 11:15 Pulse 99 09/22/21 11:15 Resp 20 09/22/21 11:15 BP 138/80 09/22/21 11:15 Pulse Ox 96 09/22/21 11:15 BMI result Body Mass Index 26.2 Neuro: Other: left arm is flaccid with loss of reflexes. Also there is significant swelling around upper arm compared to right and tightness. Some swelling is also noted in for arm and hand. There is no facial weakness. Results Labs CBC & Chem 7: 09/22/21 06:04 09/22/21 06:04 Labs: Short CBC 09/22/21 09/22/21 Range/Units 00:49 06:04 WBC 11.7 H 9.0 (4.8-10.8) X10*3/uL Hgb 14.4 13.7 L (14.0-18.0) g/dl Hct 43.2 40.5 L (42.0-52.0) % Plt Count 369 346 (160-400) X10*3/uL BMP 09/22/21 09/22/21 00:49 06:04 Sodium 136 135 Potassium 4.5 3.9 Chloride 101 103 Carbon Dioxide 24 25 BUN 14 10 Creatinine 0.88 0.80 Calcium 9.5 8.8 D Cardiac Enzymes 09/22/21 09/22/21 Range/Units 00:49 06:04 Total Creatine Kinase 7996 H 6326 H (38-174) U/L Liver Function 09/22/21 Range/Units 00:49 Total Bilirubin 1.0 (0.0-1.0) mg/dL Direct Bilirubin 0.5 (0.0-0.5) mg/dL AST 176 H (5-37) U/L ALT 132 H (0-40) U/L Alkaline Phosphatase 87 (39-117) U/L Albumin 3.8 (3.5-5.0) g/dL Urine 09/22/21 Range/Units 05:09 Urine Color YELLOW Urine Appearance CLEAR Urine pH 6.5 (5.0-8.0) Ur Specific [place] 1.010 (1.005-1.025) Urine Protein NEG (NEG-TRACE) MG/DL Urine Glucose (UA) NEG (NEG) MG/DL Assessment and Plan (1) Rhabdomyolysis: Status: Acute 36 years old man with polysubstance abuse resulting in sleeping on his left side for long hours. he lost strength in his left arm. Examination revealed loss of strength and reflexes. There is significant swelling in upper extremity suggestive of probably compressive brachial plexopathy. My recommendation is to treat muscle disease, use Solu-Medrol 1000 mg a day for couple of days, and obtain an MRI of left brachial plexus. Procedures Date of Service Date of Service: 09/22/21
[2021-09-22] MEDS: methADONE HCl 20 MG/2 ML ORAL.CONC 25 MG PO (14:33)
[2021-09-22] MEDS: methylPREDNISolone Sod Succ 40 MG/ML VIAL IVPUSH (14:33)
--- NOTE | 2021-09-22 14:47 | PM.EVENT ---
Event Note Date of Service: 09/22/21 Event Note: This is a 36-year-old gentleman who was admitted to the medical service with rhabdo in the left upper extremity status post IV drug use with IV heroin and cocaine Ortho was consulted with concern for compartment syndrome left upper extremity Left biceps region is swollen but soft. He does have decreased sensation in the biceps region. No sensation or motor function from the elbow down. Pulses are present. Compartments soft. No surgical intervention warranted at this point. Explained to the patient that his symptoms should resolve and should work on range of motion of the arm and hand. Full consult note to follow.
--- NOTE | 2021-09-22 14:49 | PM.CNOR ---
History of Present Illness HPI Consult date: 09/22/21 Chief complaint: Left Arm Pain/Swolling Narrative: 36 yo male who was admitted to the medical service for left upper extremity palsy. The patient admits on 09/21 he was drinking alcohol and injecting cocaine/heroin in his toe when he passed out around 0600. He states he woke up about 14 hours later and could not move the left arm. He came to the ED for evaluation. Patient had an elevated CPK of a 8000, no CHEKO poli admission. Medicine requested Ortho consult to rule out compartment syndrome. Review of Systems Review of Systems: per [facility] Past Medical History Medical History ADHD Anxiety Bipolar 1 disorder Depression IV drug user No known health problems Family History Family History (Updated 09/22/21 @ 07:03 by Mitchell Nielsen MD) Other No family history of coronary artery disease Social History Social History Household Members: Other Housing: Homeless Do you presently have visiting nurse or other home services: No Alcohol intake: current Alcohol intake frequency: does not drink Patient Tobacco Use Status: Current everyday Tobacco user Tobacco use type: Cigarette Cigarette Packs Per Day: 0.5 Cigarettes Per Day: 10.0 Substance Use Type: Crack/Cocaine and Heroin service: No Current occupational status: employed Meds Allergies Allergy/AdvReac Type Severity Reaction Status Date / Time morphine Allergy Itching Verified 01/12/21 17:49 Active Medications: Current Medications Acetaminophen (Acetaminophen 325 Mg Tablet) 650 mg PO Q6H PRN PRN Reason: Pain, Mild (Pain Scale 1-3) Alprazolam (Alprazolam 0.5 Mg Tablet) 1 mg PO QID [facility] Last Admin: 09/22/21 14:32 Dose: 1 mg Documented by: Amphetamine/Dextroamphetamine (Amphetamine Mixed Salts 20 Mg Tablet) 20 mg PO BID [facility] Last Admin: 09/22/21 10:20 Dose: 20 mg Documented by: Aripiprazole (Aripiprazole 20 Mg Tablet) 20 mg PO DAILY [facility] Last Admin: 09/22/21 10:20 Dose: 20 mg Documented by: Docusate Sodium (Docusate Sodium 100 Mg Capsule) 100 mg PO DAILY PRN PRN Reason: Constipation Lactated Ringer's (Lr) 1,000 mls @ 100 mls/hr IVCONT .Q10H [facility] Last Admin: 09/22/21 07:41 Dose: 100 mls/hr Documented by: Methylprednisolone Sodium Succinate (Methylprednisolone Sod Succ 40 Mg/Ml Vial) 40 mg IVPUSH Q8H [facility] Last Admin: 09/22/21 14:33 Dose: 40 mg Documented by: Ondansetron HCl (Ondansetron Hcl 4 Mg/2 Ml Vial) 4 mg IVPUSH Q8H PRN PRN Reason: Nausea and Vomiting Oxcarbazepine (Oxcarbazepine 300 Mg Tablet) 600 mg PO BID [facility] Last Admin: 09/22/21 10:20 Dose: 600 mg Documented by: Prazosin HCl (Prazosin Hcl 5 Mg Capsule) 10 mg PO BEDTIME [facility]; Protocol Sodium Chloride (0.9 % Sodium Chloride Flush 3 Ml Syringe) 3 ml IVFLUSH QSHIFT [facility] Last Admin: 09/22/21 07:41 Dose: 3 ml Documented by: Home Medications Medication Instructions Recorded Confirmed Last Taken Type alprazolam 1 mg tablet 1 tab PO QID 01/13/21 09/22/21 09/20/21 History aripiprazole 20 mg tablet 1 tab PO DAILY 01/13/21 09/22/21 09/20/21 History buprenorphine 12 mg-naloxone 3 mg 1 strip SUBLINGUAL BID 01/13/21 09/22/21 09/20/21 History sublingual film (Suboxone) ibuprofen 800 mg tablet 1 tab PO TID PRN 01/13/21 09/22/21 09/20/21 History naloxone 4 mg/actuation nasal 1 spray INTRANASAL ONCE 01/13/21 09/22/21 09/20/21 History spray (Narcan) oxcarbazepine 600 mg tablet 600 mg PO BID 01/13/21 09/22/21 09/20/21 History prazosin 5 mg capsule 2 cap PO BEDTIME 01/13/21 09/22/21 09/20/21 History dextroamphetamine-amphetamine 20 20 mg PO BID 09/22/21 09/22/21 09/20/21 History mg tablet Physical Exam Vital Signs: Vital Signs: Last Vital Signs Temp 99.4 F 09/22/21 11:15 Pulse 99 09/22/21 11:15 Resp 20 09/22/21 11:15 BP 138/80 09/22/21 11:15 Pulse Ox 96 09/22/21 11:15 BMI result Body Mass Index 26.2 Const: General: cooperative, healthy appearing, comfortable and no acute distress Extrem: Other: Left biceps region is swollen but soft.? He does have decreased sensation in the biceps region.? No sensation or motor function from the elbow down.? Pulses are present.? Compartments soft. Results Labs Result Diagrams: 09/22/21 06:04 09/22/21 06:04 Labs: Abnormal lab results 09/22/21 09/22/21 09/22/21 Range/Units 00:49 00:49 05:09 WBC 11.7 H (4.8-10.8) X10*3/uL RBC (4.60-5.80) X10*6/uL Hgb (14.0-18.0) g/dl Hct (42.0-52.0) % MPV 8.6 L (9.4-12.4) fL Neut % (Auto) 73.8 H (45-73) % Lymph % (Auto) 15.9 L (20-40) % Absolute Neuts (auto) 8.7 H (2.0-8.3) x10*3/uL Anion Gap (12-20) Random Glucose 130 H D (60-115) mg/dL AST 176 H (5-37) U/L ALT 132 H (0-40) U/L Total Creatine Kinase 7996 H (38-174) U/L Urine Opiates Screen POSITIVE H (Not Detect) Urine Fentanyl Screen POSITIVE H (Not Detect) U Benzodiazepines Scrn POSITIVE H (Not Detect) Urine Cocaine Screen POSITIVE H (Not Detect) U Marijuana (THC) Screen POSITIVE H (Not Detect) 09/22/21 09/22/21 Range/Units 06:04 06:04 WBC (4.8-10.8) X10*3/uL RBC 4.59 L (4.60-5.80) X10*6/uL Hgb 13.7 L (14.0-18.0) g/dl Hct 40.5 L (42.0-52.0) % MPV 8.6 L (9.4-12.4) fL Neut % (Auto) (45-73) % Lymph % (Auto) 18.4 L (20-40) % Absolute Neuts (auto) (2.0-8.3) x10*3/uL Anion Gap 11 L (12-20) Random Glucose (60-115) mg/dL AST (5-37) U/L ALT (0-40) U/L Total Creatine Kinase 6326 H (38-174) U/L Urine Opiates Screen (Not Detect) Urine Fentanyl Screen (Not Detect) U Benzodiazepines Scrn (Not Detect) Urine Cocaine Screen (Not Detect) U Marijuana (THC) Screen (Not Detect) H & H 09/22/21 09/22/21 Range/Units 00:49 06:04 Hgb 14.4 13.7 L (14.0-18.0) g/dl Hct 43.2 40.5 L (42.0-52.0) % All other labs normal. Assessment and Plan (1) Wednesday night nerve palsy: Status: Acute Plan No surgical intervention warranted at this point.? Explained to the patient that his symptoms should resolve and should work on range of motion of the arm and hand. Patient expressed understanding. Procedures Date of Service Date of Service: 09/22/21
--- NOTE | 2021-09-22 15:41 | HO.ADDICT_ITS ---
History of Present Illness Date of Service: 09/22/2021 Chief Complaint: Left Arm Pain/Swolling Reason for Consult: substance use Requesting physician: Brayden Whitley Sources of Information: patient interviewed and chart reviewed HPI Narrative: Patient is a 36 year old make with history of cocaine and opioid use disorder currently medically admitted with rhabdo Consult requested as yunior reported (and verified) being on buprenorphine, though declining medication as he has been using opiates. Patient seen by this comic writer X2 and RSRN X2. Initially patient appearing diaphoretic, reporting chills, malaise. States that he has been using between 1/2-1 pack (50-100 bags) of heroin daily. Reporting he has been on suboxone for 12 years , but does not take it consistently. Reports last time he took medication was 3 days ago. Discussed options for restarting buprenorphine (given large amount of heroin/fentanyl use). Patient stated that he preferred to transition to methadone with goal of ongoing methadone treatment. RSRN discussed referral process--patient does not have a photo ID, but copy of one was obtained via other facility patient had previously been at. (JAMILA signed by patient) Mass Pat checked and patient was recently prescribed (August 2021) Xanax 1mg QID, Adderall 20mg BID and Suboxone 8mg BID.Prior to this last rx was in January 2021. Concern with high doses of benzodiazepines and concurrent opioid use---high risk for overdose. Past Psychiatric History: Full extent of psych history is unknown, however patient did mention that he knows the only place he would be prescribed is Adderall is when he is inpatient psych. A chart review did not reveal any inpatient level of care within this facility. Review of Systems Constitutional: Reports as per HPI Diagnostics Vital Signs (24Hr): Vital Signs - 24 hr 09/21/21 21:42 09/21/21 23:49 09/22/21 02:00 Temperature 98 F 97.8 F 98.0 F Pulse Rate 94 94 88 Respiratory Rate 19 16 16 Blood Pressure 131/74 130/82 135/76 Pulse Oximetry 95 98 98 09/22/21 03:54 09/22/21 05:18 09/22/21 08:00 Temperature 98.6 F 98.0 F 99.5 F Pulse Rate 78 84 98 Respiratory Rate 16 16 18 Blood Pressure 139/79 141/81 H 137/80 Pulse Oximetry 97 97 96 09/22/21 11:15 09/22/21 15:36 Temperature 99.4 F 97.7 F Pulse Rate 99 87 Respiratory Rate 20 19 Blood Pressure 138/80 140/72 H Pulse Oximetry 96 96 BMI result Body Mass Index 26.2 Labs Results: 09/22/21 06:04 09/22/21 06:04 Labs: Laboratory Results - last 48 hr 09/22/21 09/22/21 09/22/21 00:49 00:49 00:49 WBC 11.7 H RBC 4.90 Hgb 14.4 Hct 43.2 MCV 88.2 MCH 29.4 MCHC 33.3 RDW 13.2 Plt Count 369 MPV 8.6 L Immature Gran % (Auto) 0.3 Neut % (Auto) 73.8 H Lymph % (Auto) 15.9 L [place] % (Auto) 9.5 Eos % (Auto) 0.3 Baso % (Auto) 0.2 Lymph # (Auto) 1.9 [place] # (Auto) 1.1 Eos # (Auto) 0.0 Baso # (Auto) 0.0 Abs Immat Gran (auto) 0.03 Absolute Neuts (auto) 8.7 H Absolute Nucleated RBC 0.000 Nucleated RBC % (auto) 0.0 Sodium 136 Potassium 4.5 Chloride 101 Carbon Dioxide 24 Anion Gap 16 BUN 14 Creatinine 0.88 Estim Creat Clear Calc 117.5 Estimated GFR > 60 Random Glucose 130 H D Calcium 9.5 Magnesium 2.3 Total Bilirubin 1.0 Direct Bilirubin 0.5 AST 176 H ALT 132 H Alkaline Phosphatase 87 Total Creatine Kinase 7996 H Total Protein 7.0 Albumin 3.8 Urine Color Urine Appearance Urine pH Ur Specific [place] Urine Protein Urine Glucose (UA) Urine Ketones Urine Blood Urine Nitrite Ur Leukocyte Esterase Urine RBC Urine WBC Ur Squamous Epith Cells Urine Bacteria Urine Opiates Screen Urine Fentanyl Screen Ur Barbiturates Screen Ur Phencyclidine Scrn Ur Amphetamines Screen U Benzodiazepines Scrn Urine Cocaine Screen U Marijuana (THC) Screen Ethyl Alcohol < 10 COVID-19 (MADELEINE) COVID-19 Clin Com 09/22/21 09/22/21 09/22/21 03:10 05:09 05:09 WBC RBC Hgb Hct MCV MCH MCHC RDW Plt Count MPV Immature Gran % (Auto) Neut % (Auto) Lymph % (Auto) [place] % (Auto) Eos % (Auto) Baso % (Auto) Lymph # (Auto) [place] # (Auto) Eos # (Auto) Baso # (Auto) Abs Immat Gran (auto) Absolute Neuts (auto) Absolute Nucleated RBC Nucleated RBC % (auto) Sodium Potassium Chloride Carbon Dioxide Anion Gap BUN Creatinine Estim Creat Clear Calc Estimated GFR Random Glucose Calcium Magnesium Total Bilirubin Direct Bilirubin AST ALT Alkaline Phosphatase Total Creatine Kinase Total Protein Albumin Urine Color YELLOW Urine Appearance CLEAR Urine pH 6.5 Ur Specific [place] 1.010 Urine Protein NEG Urine Glucose (UA) NEG Urine Ketones 5 Urine Blood TRACE Urine Nitrite NEG Ur Leukocyte Esterase NEG Urine RBC 1-4 Urine WBC 1-4 Ur Squamous Epith Cells 1+ Urine Bacteria 1+ Urine Opiates Screen POSITIVE H Urine Fentanyl Screen POSITIVE H Ur Barbiturates Screen Not Detected Ur Phencyclidine Scrn Not Detected Ur Amphetamines Screen Not Detected U Benzodiazepines Scrn POSITIVE H Urine Cocaine Screen POSITIVE H U Marijuana (THC) Screen POSITIVE H Ethyl Alcohol COVID-19 (MADELEINE) Negative COVID-19 Clin Com See Note 09/22/21 09/22/21 06:04 06:04 WBC 9.0 RBC 4.59 L Hgb 13.7 L Hct 40.5 L MCV 88.2 MCH 29.8 MCHC 33.8 RDW 13.2 Plt Count 346 MPV 8.6 L Immature Gran % (Auto) 0.2 Neut % (Auto) 70.1 Lymph % (Auto) 18.4 L [place] % (Auto) 10.6 Eos % (Auto) 0.4 Baso % (Auto) 0.3 Lymph # (Auto) 1.7 [place] # (Auto) 1.0 Eos # (Auto) 0.0 Baso # (Auto) 0.0 Abs Immat Gran (auto) 0.02 Absolute Neuts (auto) 6.3 Absolute Nucleated RBC 0.000 Nucleated RBC % (auto) 0.0 Sodium 135 Potassium 3.9 Chloride 103 Carbon Dioxide 25 Anion Gap 11 L BUN 10 Creatinine 0.80 Estim Creat Clear Calc 129.2 Estimated GFR > 60 Random Glucose 111 Calcium 8.8 D Magnesium Total Bilirubin Direct Bilirubin AST ALT Alkaline Phosphatase Total Creatine Kinase 6326 H Total Protein Albumin Urine Color Urine Appearance Urine pH Ur Specific [place] Urine Protein Urine Glucose (UA) Urine Ketones Urine Blood Urine Nitrite Ur Leukocyte Esterase Urine RBC Urine WBC Ur Squamous Epith Cells Urine Bacteria Urine Opiates Screen Urine Fentanyl Screen Ur Barbiturates Screen Ur Phencyclidine Scrn Ur Amphetamines Screen U Benzodiazepines Scrn Urine Cocaine Screen U Marijuana (THC) Screen Ethyl Alcohol COVID-19 (MADELEINE) COVID-19 Clin Com Imaging Radiology Impressions: ITS Impressions Head CT 09/22/21 00:17 IMPRESSION: No acute intracranial pathology. Head/Neck CTA 09/22/21 01:45 IMPRESSION: 1. No acute vascular abnormality identified in the head or neck. 2. Soft tissue swelling in the left zygomatic and supraclavicular regions. Mental Status Exam Mental Status Exam Patient Appearance: Appropriate Patient Orientation: Person, Place, Time and Situation Affect Description: Blunted Thought Process: Goal Oriented Judgement: Fair Medications Medications Current Medications Acetaminophen (Acetaminophen 325 Mg Tablet) 650 mg PO Q6H PRN PRN Reason: Pain, Mild (Pain Scale 1-3) Alprazolam (Alprazolam 0.5 Mg Tablet) 1 mg PO QID [facility] Last Admin: 09/22/21 14:32 Dose: 1 mg Documented by: Amphetamine/Dextroamphetamine (Amphetamine Mixed Salts 20 Mg Tablet) 20 mg PO BID [facility] Last Admin: 09/22/21 10:20 Dose: 20 mg Documented by: Aripiprazole (Aripiprazole 20 Mg Tablet) 20 mg PO DAILY [facility] Last Admin: 09/22/21 10:20 Dose: 20 mg Documented by: Docusate Sodium (Docusate Sodium 100 Mg Capsule) 100 mg PO DAILY PRN PRN Reason: Constipation Lactated Ringer's (Lr) 1,000 mls @ 100 mls/hr IVCONT .Q10H [facility] Last Admin: 09/22/21 07:41 Dose: 100 mls/hr Documented by: Methylprednisolone Sodium Succinate 1,000 mg/ Sodium Chloride 66 mls @ 66 mls/hr IV DAILY [facility] Ondansetron HCl (Ondansetron Hcl 4 Mg/2 Ml Vial) 4 mg IVPUSH Q8H PRN PRN Reason: Nausea and Vomiting Oxcarbazepine (Oxcarbazepine 300 Mg Tablet) 600 mg PO BID [facility] Last Admin: 09/22/21 10:20 Dose: 600 mg Documented by: Prazosin HCl (Prazosin Hcl 5 Mg Capsule) 10 mg PO BEDTIME [facility]; Protocol Sodium Chloride (0.9 % Sodium Chloride Flush 3 Ml Syringe) 3 ml IVFLUSH QSHIFT [facility] Last Admin: 09/22/21 07:41 Dose: 3 ml Documented by: Allergies Allergies Allergy/AdvReac Type Severity Reaction Status Date / Time morphine Allergy Itching Verified 01/12/21 17:49 Assessment & Plan Assessment & Plan (1) Opioid use disorder, severe, dependence: Status: Acute Code(s): F11.20 - Opioid dependence, uncomplicated Plan * methadone 25mg given with good effect--patient reporting improved withdrawal sx, but did appear very drowsy when re-evaled by this comic writer * Will titrate slowly given concern for oversedation with other medications * Methadone 30mg tomorrow AM, please hold if patient appearing sedated * Consider making Xanax PRN and/or holding doses when patient appears sedated/drowsy I spent _45 minutes with the patient and/or on the patient floor today, greater than?50% of which was spent counseling/coordinating care. PMFSH Past Medical History Medical History ADHD Anxiety Bipolar 1 disorder Depression IV drug user No known health problems Family History Family History (Updated 09/22/21 @ 07:03 by Mitchell Nielsen MD) Other No family history of coronary artery disease Social History Social History Household Members: Other Housing: Homeless Do you presently have visiting nurse or other home services: No Alcohol intake: current Alcohol intake frequency: does not drink Patient Tobacco Use Status: Current everyday Tobacco user Tobacco use type: Cigarette Cigarette Packs Per Day: 0.5 Cigarettes Per Day: 10.0 Substance Use Type: Crack/Cocaine and Heroin service: No Current occupational status: employed
--- NOTE | 2021-09-22 15:55 | MHC.CM.PN ---
CM ATTEMPTED TO MEET WITH PT WHO WAS SNORING. PER NOTES, PT WAS REPORTING WITHDRAWAL SYMPTOMS EARLIER TODAY. CM WILL REVISIT AND ALLOW HIM TO SLEEP
[2021-09-22] MEDS: methylPREDNISolone Sod Succ 1,000 MG in 0.9 % Sodium Chloride 50 ML 66 MG IV (19:31)
--- NOTE | 2021-09-22 22:12 | PM.EVENT ---
Event Note Date of Service: 09/23/21 Event Note: LUE Weakness: MRI resulted with significant edema/Phelgmogenous chnages; pt already on Steroids per Day team. Spoke to Dr Lynch suggested Surgery consult for possible offloading pressure on Brachial plexus. Spoke to Dr Ennis-> after reviewing-> mentioned no surgical intervention offered a this time. Spoke to Neurosurgery at [facility] -> mentioned in noted with brachial plexus I also spoke to [facility] and [facility] neurosurgery teams->Didnot suggest any intervention from their; recs to try orthopedics; patient was evaluated by orthopedics team here in the morning and did not recommend any surgery.
[2021-09-22] MEDS: Prazosin HCL 5 MG CAPSULE 10 MG PO (22:18)
--- NOTE | 2021-09-22 22:54 | PM.CNGS ---
History of Present Illness Consult details Consult date: 09/22/21 Narrative: 36-year-old male referred to me for loss of vision and motor functions of the entire left arm. The patient was admitted with more early this morning because of the patient describes as numbness and loss of motor function of the left arm all the way to the hands and fingers. He apparently had been bingeing on on alcohol and cocaine in woke up some time on Tuesday September 21, 2021 with the above symptoms. He apparently had sleeping for 20 hours straight after his pain binge and woke up with the symptoms. He eventually had an MRI tonight showing edema of the scalene muscles causing some compression on the brachial plexus nerves with no identifiable mass or drainable fluid. The patient says he did not have any of these symptoms prior to Wednesday. He denies any fever or chills. He denies any trauma to the neck or to the axilla. He denies any pain at all on the arm and hand. Review of Systems Constitutional: Constitutional: Denies chills and Denies fever(s) Cardiovascular: Cardiovascular: Denies chest pain, Denies dyspnea and Denies dyspnea on exertion Respiratory: Respiratory: Denies cough, Denies dyspnea and Denies dyspnea on exertion Gastrointestinal: Gastrointestinal: Denies hematochezia and Denies change in bowel habits Genitourinary: Genitourinary: Denies hematuria and Denies difficulty urinating Musculoskeletal: Musculoskeletal: Denies back pain and Denies limited range of motion Neurologic: Reports focal weakness and Denies convulsions Psychiatric: Psychiatric: Denies depression and Denies mood swings PMFSH Past Medical History Medical History ADHD Anxiety Bipolar 1 disorder Depression IV drug user No known health problems Paralysis of left upper extremity Family History Family History Other No family history of coronary artery disease Social History Social History Household Members: Other Housing: Homeless Do you presently have visiting nurse or other home services: No Alcohol intake: current Alcohol intake frequency: does not drink Patient Tobacco Use Status: Current everyday Tobacco user Tobacco use type: Cigarette Cigarette Packs Per Day: 0.5 Cigarettes Per Day: 10.0 Substance Use Type: Crack/Cocaine and Heroin service: No Current occupational status: employed Meds Allergies Allergy/AdvReac Type Severity Reaction Status Date / Time morphine Allergy Itching Verified 01/12/21 17:49 Active Medications: Current Medications Acetaminophen (Acetaminophen 325 Mg Tablet) 650 mg PO Q6H PRN PRN Reason: Pain, Mild (Pain Scale 1-3) Alprazolam (Alprazolam 0.5 Mg Tablet) 1 mg PO QID [facility] Last Admin: 09/22/21 21:54 Dose: 1 mg Documented by: Amphetamine/Dextroamphetamine (Amphetamine Mixed Salts 20 Mg Tablet) 20 mg PO BID [facility] Last Admin: 09/22/21 21:53 Dose: 20 mg Documented by: Aripiprazole (Aripiprazole 20 Mg Tablet) 20 mg PO DAILY [facility] Last Admin: 09/22/21 10:20 Dose: 20 mg Documented by: Docusate Sodium (Docusate Sodium 100 Mg Capsule) 100 mg PO DAILY PRN PRN Reason: Constipation Lactated Ringer's (Lr) 1,000 mls @ 125 mls/hr IVCONT .Q8H [facility] Last Admin: 09/22/21 19:30 Dose: 100 mls/hr Documented by: Methylprednisolone Sodium Succinate 1,000 mg/ Sodium Chloride 66 mls @ 66 mls/hr IV DAILY@2000 [facility] Last Infusion: 09/22/21 22:19 Dose: Infused Documented by: Methadone HCl (Methadone Hcl 20 Mg/2 Ml Oral.Conc) 30 mg PO DAILY [facility] Ondansetron HCl (Ondansetron Hcl 4 Mg/2 Ml Vial) 4 mg IVPUSH Q8H PRN PRN Reason: Nausea and Vomiting Oxcarbazepine (Oxcarbazepine 300 Mg Tablet) 600 mg PO BID [facility] Last Admin: 09/22/21 21:54 Dose: 600 mg Documented by: Prazosin HCl (Prazosin Hcl 5 Mg Capsule) 10 mg PO BEDTIME [facility]; Protocol Last Admin: 09/22/21 22:18 Dose: 10 mg Documented by: Sodium Chloride (0.9 % Sodium Chloride Flush 3 Ml Syringe) 3 ml IVFLUSH QSHIFT [facility] Last Admin: 09/22/21 17:02 Dose: 3 ml Documented by: Home Medications Medication Instructions Recorded Confirmed Last Taken Type alprazolam 1 mg tablet 1 tab PO QID 01/13/21 09/22/21 09/20/21 History aripiprazole 20 mg tablet 1 tab PO DAILY 01/13/21 09/22/21 09/20/21 History buprenorphine 12 mg-naloxone 3 mg 1 strip SUBLINGUAL BID 01/13/21 09/22/21 09/20/21 History sublingual film (Suboxone) ibuprofen 800 mg tablet 1 tab PO TID PRN 01/13/21 09/22/21 09/20/21 History naloxone 4 mg/actuation nasal 1 spray INTRANASAL ONCE 01/13/21 09/22/21 09/20/21 History spray (Narcan) oxcarbazepine 600 mg tablet 600 mg PO BID 01/13/21 09/22/21 09/20/21 History prazosin 5 mg capsule 2 cap PO BEDTIME 01/13/21 09/22/21 09/20/21 History dextroamphetamine-amphetamine 20 20 mg PO BID 09/22/21 09/22/21 09/20/21 History mg tablet Physical Exam Vital Signs: Vital Signs: Last Vital Signs Temp 97.5 F 09/22/21 19:54 Pulse 84 09/22/21 19:54 Resp 17 09/22/21 19:54 BP 137/69 09/22/21 19:54 Pulse Ox 97 09/22/21 19:54 BMI result Body Mass Index 26.2 Const: General: comfortable and no acute distress Orientation/consciousness: patient oriented x3 Neck: Other: Mild diffuse tenderness on the posterior neck all the way to the supraclavicular area the left hip with no palpable mass, no fluctuance, no skin changes Neck: Yes no lymphadenopathy Resp: Auscultation: clear to auscultation bilaterally Cardio: Rhythm: regular rhythm GI: Palpation (GI): Soft to palpation, nontender and no guarding Neuro: General: patient oriented x3 Extrem: Other: edema of the left hand seen, with loss of motor and sensory functions of the entire arm and hand on the left, no cellulitis, no skin changes, no masses, no fluctuant areas, no evidence of any inflammation or infection of the left arm or axilla, no palpable masses in the axilla Results Labs Result diagrams: 09/22/21 06:04 09/23/21 05:50 Labs: Abnormal lab results 09/22/21 09/22/21 09/22/21 Range/Units 00:49 00:49 05:09 WBC 11.7 H (4.8-10.8) X10*3/uL RBC (4.60-5.80) X10*6/uL Hgb (14.0-18.0) g/dl Hct (42.0-52.0) % MPV 8.6 L (9.4-12.4) fL Neut % (Auto) 73.8 H (45-73) % Lymph % (Auto) 15.9 L (20-40) % Absolute Neuts (auto) 8.7 H (2.0-8.3) x10*3/uL Anion Gap (12-20) Random Glucose 130 H D (60-115) mg/dL AST 176 H (5-37) U/L ALT 132 H (0-40) U/L Total Creatine Kinase 7996 H (38-174) U/L Urine Opiates Screen POSITIVE H (Not Detect) Urine Fentanyl Screen POSITIVE H (Not Detect) U Benzodiazepines Scrn POSITIVE H (Not Detect) Urine Cocaine Screen POSITIVE H (Not Detect) U Marijuana (THC) Screen POSITIVE H (Not Detect) 09/22/21 09/22/21 Range/Units 06:04 06:04 WBC (4.8-10.8) X10*3/uL RBC 4.59 L (4.60-5.80) X10*6/uL Hgb 13.7 L (14.0-18.0) g/dl Hct 40.5 L (42.0-52.0) % MPV 8.6 L (9.4-12.4) fL Neut % (Auto) (45-73) % Lymph % (Auto) 18.4 L (20-40) % Absolute Neuts (auto) (2.0-8.3) x10*3/uL Anion Gap 11 L (12-20) Random Glucose (60-115) mg/dL AST (5-37) U/L ALT (0-40) U/L Total Creatine Kinase 6326 H (38-174) U/L Urine Opiates Screen (Not Detect) Urine Fentanyl Screen (Not Detect) U Benzodiazepines Scrn (Not Detect) Urine Cocaine Screen (Not Detect) U Marijuana (THC) Screen (Not Detect) Short CBC 09/22/21 09/22/21 Range/Units 00:49 06:04 WBC 11.7 H 9.0 (4.8-10.8) X10*3/uL Hgb 14.4 13.7 L (14.0-18.0) g/dl Hct 43.2 40.5 L (42.0-52.0) % Plt Count 369 346 (160-400) X10*3/uL BMP 09/22/21 09/22/21 00:49 06:04 Sodium 136 135 Potassium 4.5 3.9 Chloride 101 103 Carbon Dioxide 24 25 BUN 14 10 Creatinine 0.88 0.80 Calcium 9.5 8.8 D Cardiac Enzymes 09/22/21 09/22/21 Range/Units 00:49 06:04 Total Creatine Kinase 7996 H 6326 H (38-174) U/L Liver Function 09/22/21 Range/Units 00:49 Total Bilirubin 1.0 (0.0-1.0) mg/dL Direct Bilirubin 0.5 (0.0-0.5) mg/dL AST 176 H (5-37) U/L ALT 132 H (0-40) U/L Alkaline Phosphatase 87 (39-117) U/L Albumin 3.8 (3.5-5.0) g/dL Urine 09/22/21 Range/Units 05:09 Urine Color YELLOW Urine Appearance CLEAR Urine pH 6.5 (5.0-8.0) Ur Specific Mcguffey 1.010 (1.005-1.025) Urine Protein NEG (NEG-TRACE) MG/DL Urine Glucose (UA) NEG (NEG) MG/DL All other labs normal. Imaging Additional studies: Laboratory Results WBC 9.0 X10*3/uL (4.8-10.8) 09/22/21 06:04 RBC 4.59 X10*6/uL (4.60-5.80) L 09/22/21 06:04 Hgb 13.7 g/dl (14.0-18.0) L 09/22/21 06:04 Hct 40.5 % (42.0-52.0) L 09/22/21 06:04 MCV 88.2 fL (80.0-98.0) 09/22/21 06:04 MCH 29.8 pg (27.0-33.0) 09/22/21 06:04 MCHC 33.8 g/dl (31.0-36.0) 09/22/21 06:04 RDW 13.2 % (11.0-16.0) 09/22/21 06:04 Plt Count 346 X10*3/uL (160-400) 09/22/21 06:04 MPV 8.6 fL (9.4-12.4) L 09/22/21 06:04 Immature Gran % (Auto) 0.2 % (0.0-0.4) 09/22/21 06:04 Neut % (Auto) 70.1 % (45-73) 09/22/21 06:04 Lymph % (Auto) 18.4 % (20-40) L 09/22/21 06:04 [place] % (Auto) 10.6 % (2-11) 09/22/21 06:04 Eos % (Auto) 0.4 % (0-4) 09/22/21 06:04 Baso % (Auto) 0.3 % (0-2) 09/22/21 06:04 Lymph # (Auto) 1.7 X10*3/uL (1.2-4.9) 09/22/21 06:04 [place] # (Auto) 1.0 X10*3/uL (0.1-1.2) 09/22/21 06:04 Eos # (Auto) 0.0 X10*3/uL (0.0-0.4) 09/22/21 06:04 Baso # (Auto) 0.0 X10*3/uL (0.0-0.2) 09/22/21 06:04 Abs Immat Gran (auto) 0.02 X10*3/uL (0.00-0.03) 09/22/21 06:04 Absolute Neuts (auto) 6.3 x10*3/uL (2.0-8.3) 09/22/21 06:04 Absolute Nucleated RBC 0.000 X10*3/uL (0.0-0.012) 09/22/21 06:04 Nucleated RBC % (auto) 0.0 /100WBC (0.0-0.2) 09/22/21 06:04 Sodium 135 mmol/L (135-145) 09/22/21 06:04 Potassium 3.9 mmol/L (3.3-5.1) 09/22/21 06:04 Chloride 103 mmol/L (96-108) 09/22/21 06:04 Carbon Dioxide 25 mmol/L (22-29) 09/22/21 06:04 Anion Gap 11 (12-20) L 09/22/21 06:04 BUN 10 mg/dL (9-16) 09/22/21 06:04 Creatinine 0.80 mg/dL (0.5-1.4) 09/22/21 06:04 Estim Creat Clear Calc 129.2 09/22/21 06:04 Estimated GFR > 60 09/22/21 06:04 Random Glucose 111 mg/dL (60-115) 09/22/21 06:04 Calcium 8.8 mg/dL (8.4-10.2) D 09/22/21 06:04 Magnesium 2.3 mg/dL (1.6-2.6) 09/22/21 00:49 Total Bilirubin 1.0 mg/dL (0.0-1.0) 09/22/21 00:49 Direct Bilirubin 0.5 mg/dL (0.0-0.5) 09/22/21 00:49 AST 176 U/L (5-37) H 09/22/21 00:49 ALT 132 U/L (0-40) H 09/22/21 00:49 Alkaline Phosphatase 87 U/L (39-117) 09/22/21 00:49 Total Creatine Kinase 6326 U/L (38-174) H 09/22/21 06:04 Total Protein 7.0 g/dL (6.5-8.0) 09/22/21 00:49 Albumin 3.8 g/dL (3.5-5.0) 09/22/21 00:49 Urine Color YELLOW 09/22/21 05:09 Urine Appearance CLEAR 09/22/21 05:09 Urine pH 6.5 (5.0-8.0) 09/22/21 05:09 Ur Specific Mcguffey 1.010 (1.005-1.025) 09/22/21 05:09 Urine Protein NEG MG/DL (NEG-TRACE) 09/22/21 05:09 Urine Glucose (UA) NEG MG/DL (NEG) 09/22/21 05:09 Urine Ketones 5 MG/DL (NEG) 09/22/21 05:09 Urine Blood TRACE (NEG) 09/22/21 05:09 Urine Nitrite NEG (NEG) 09/22/21 05:09 Ur Leukocyte Esterase NEG (NEG) 09/22/21 05:09 Urine RBC 1-4 /HPF (0) 09/22/21 05:09 Urine WBC 1-4 /HPF (0-4) 09/22/21 05:09 Ur Squamous Epith Cells 1+ /LPF 09/22/21 05:09 Urine Bacteria 1+ /LPF 09/22/21 05:09 Urine Opiates Screen POSITIVE (Not Detect) H 09/22/21 05:09 Urine Fentanyl Screen POSITIVE (Not Detect) H 09/22/21 05:09 Ur Barbiturates Screen Not Detected (Not Detect) 09/22/21 05:09 Ur Phencyclidine Scrn Not Detected (Not Detect) 09/22/21 05:09 Ur Amphetamines Screen Not Detected (Not Detect) 09/22/21 05:09 U Benzodiazepines Scrn POSITIVE (Not Detect) H 09/22/21 05:09 Urine Cocaine Screen POSITIVE (Not Detect) H 09/22/21 05:09 U Marijuana (THC) Screen POSITIVE (Not Detect) H 09/22/21 05:09 Ethyl Alcohol < 10 mg/dL 09/22/21 00:49 COVID-19 ([place]) Negative (Negative) 09/22/21 03:10 COVID-19 Clin Com See Note 09/22/21 03:[address] 09/22/21 00:17 IMPRESSION: No acute intracranial pathology. Head/Neck CTA 09/22/21 01:45 IMPRESSION: 1. No acute vascular abnormality identified in the head or neck. 2. Soft tissue swelling in the left zygomatic and supraclavicular regions. Chest MRI 09/22/21 18:14 Impression: There is significant soft tissue edema and enhancement with epicenter in the left supraclavicular region. This edema and abnormal enhancement involves the scalene muscles and left rhomboid muscle posteriorly. Although the signal does directly abut the clavicle and first rib I do not appreciate any acute bony destructive lesion. Unfortunately the brachial plexus nerve roots are unable to be from this extensive signal abnormality. In the acute setting, infectious etiology/phlegmonous change would be suspected. I do not appreciate any discrete drainable abscess. Posttraumatic edema and/or evolving hematoma could have a similar appearance and should be clinically correlated. Of note there is milder edema seen in the contralateral supraclavicular fossa on the large [id number] coronal images. Assessment and Plan (1) Paralysis of left upper extremity: Status: Acute The patient was admitted early this morning because of a motor and sensory function of the entire left arm and hand. This happened after he apparently had binge on alcohol and cocaine and slept for 20 hours straight. He woke up with this acute loss of motor and sensory function without any pain. I have reviewed his MRI and CT scan. MRI shows edema of the scalene muscles of the neck at the thoracic outlet area and this is likely causing impingement of the nerves of the brachial plexus subsequent loss of motor and sensory function. This skin if edema of the scalene muscles likely may have occurred after he had slept in an awkward position causing prolonged pain on his neck area or the axilla causing the subsequent edema. Again, review of his images does not reveal any mass, abscess or any drainable fluid. He apparently has had the symptoms for over 36 hours now. He came in with acutely elevated CPK secondary to rhabdomyolysis as well which is consistent with his history of being asleep for over 20 hours in 1 position. His urine tox screen was positive for multiple drugs including cocaine, alcohol and benzos. I have recommended to hospitalist a neurosurgery consult. I am uncertain as to whether there will be any benefit to any intervention with removing part of the scalene to decompress the brachial nerves as it has been over 36 hours he has had this symptoms. His arm and hand on the left are warm I do not appear to have any vascular compromise. In the meantime I agree with giving him with steroids to help with the soft tissue swelling and edema. Again, I have discussed the above with the hospitalist service. I am uncertain if Procedures Date of Service Date of Service: 09/22/21
[2021-09-23 04:00] VITALS: BP 124/67; PULSE 89; RESP 16; TEMP 36.4; O2SAT 96
[2021-09-23] MEDS: Lactated Ringers 1,000 ML 100 ML IVCONT ×2 (05:33→21:04)
[2021-09-23] MEDS: methADONE HCl 20 MG/2 ML ORAL.CONC 30 MG PO (06:41)
[2021-09-23] MEDS: ALPRAZolam 0.5 MG TABLET 1 MG PO ×4 (06:41→21:05)
[2021-09-23 07:20] LABS: Anion Gap 11 (12-20); Blood Urea Nitrogen 7 mg/dL (9-16); Calcium 9.2 mg/dL (8.4-10.2); Carbon Dioxide 25 mmol/L (22-29); Chloride 104 mmol/L (96-108); Creatinine Clr Calc Pharmacy 132.5; Estimated Glomerular Filt Rate > 60; Glucose Random 195 mg/dL (60-115); Potassium 4.1 mmol/L (3.3-5.1); Sodium 136 mmol/L (135-145)
[2021-09-23 07:22] VITALS: BP 123/66; PULSE 83; RESP 17; TEMP 36.8; O2SAT 93
--- NOTE | 2021-09-23 09:51 | HO.PM.IMPN ---
Subjective Subjective Date of Service: 09/23/21 Interval History: Seen in f/u for compressive brachial plexopathy and unable to move the left arm Interval history:Still not able to move the arm--MRI showed signficant swelling--multiple hospitals notified for transfer with all noted no intervention they would do or no bed Review of Systems no fever left arm weakness Physical Exam Vital Signs: Vital Signs: Last Vital Signs Temp 98.3 F 09/23/21 07:22 Pulse 83 09/23/21 07:22 Resp 17 09/23/21 07:22 BP 123/66 09/23/21 07:22 Pulse Ox 93 09/23/21 07:22 BMI result Body Mass Index 26.2 Const: Other: General: AO X 3, no acute distress Resp: CTA bilateral CVS: S1,S2,RRR GI: +BS, NT, no distention Skin: No rash Neuro: Paralysed left arm in sling Psych: appropriate affect Objective Data Active Medications Acetaminophen (Acetaminophen 325 Mg Tablet) 650 mg PO Q6H PRN PRN Reason: Pain, Mild (Pain Scale 1-3) Alprazolam (Alprazolam 0.5 Mg Tablet) 1 mg PO QID [facility] Last Admin: 09/23/21 06:41 Dose: 1 mg Documented by: AMLICAR Amphetamine/Dextroamphetamine (Amphetamine Mixed Salts 20 Mg Tablet) 20 mg PO BID [facility] Last Admin: 09/22/21 21:53 Dose: 20 mg Documented by: KELLY Aripiprazole (Aripiprazole 20 Mg Tablet) 20 mg PO DAILY [facility] Last Admin: 09/22/21 10:20 Dose: 20 mg Documented by: BRIE Docusate Sodium (Docusate Sodium 100 Mg Capsule) 100 mg PO DAILY PRN PRN Reason: Constipation Lactated Ringer's (Lr) 1,000 mls @ 125 mls/hr IVCONT .Q8H [facility] Last Admin: 09/23/21 05:33 Dose: 100 mls/hr Documented by: AMILCAR Methylprednisolone Sodium Succinate 1,000 mg/ Sodium Chloride 66 mls @ 66 mls/hr IV DAILY@1999 [facility] Last Infusion: 09/22/21 22:19 Dose: 0 mls/hr Documented by: KELLY Methadone HCl (Methadone Hcl 20 Mg/2 Ml Oral.Conc) 30 mg PO DAILY [facility] Last Admin: 09/23/21 06:41 Dose: 30 mg Documented by: AMILCAR Ondansetron HCl (Ondansetron Hcl 4 Mg/2 Ml Vial) 4 mg IVPUSH Q8H PRN PRN Reason: Nausea and Vomiting Oxcarbazepine (Oxcarbazepine 300 Mg Tablet) 600 mg PO BID [facility] Last Admin: 09/22/21 21:54 Dose: 600 mg Documented by: KELLY Prazosin HCl (Prazosin Hcl 5 Mg Capsule) 10 mg PO BEDTIME [facility]; Protocol Last Admin: 09/22/21 22:18 Dose: 10 mg Documented by: KELLY Sodium Chloride (0.9 % Sodium Chloride Flush 3 Ml Syringe) 3 ml IVFLUSH QSHIFT [facility] Last Admin: 09/23/21 00:38 Dose: Not Given Documented by: AMILCAR Non-Admin Reason: IV Running Labs CBC & Chem 7: 09/22/21 06:04 09/23/21 05:50 Labs: Laboratory Results - last 24 hr 09/23/21 05:50 Anion Gap 11 L Estim Creat Clear Calc 132.5 Estimated GFR > 60 Random Glucose 195 H D Calcium 9.2 Total Creatine Kinase 3462 H D Assessment and Plan (1) Cellulitis: Status: Acute (2) IV drug user: Status: Acute Plan 35-year-old male with history of IV drug use presents to the hospital with complaints of left flu extremity redness, swelling, and pain # cellulitis of left lower extremity # Abscess secondary to IV drug injection Continue Zosyn and vancomycin Ultrasound concerning for possible abscess or phlegmon Pending cultures No cultures done. #Left upper extremity paralysis d/t compressive brachial plexopathy. -Neuro has advised steroid, ? need for decompression, has been evaluated by Surgery and Ortho--withn no indication for intervetion. -Multiple attemps made last for transfer and not accpeted due to no indication for surgery # IV drug user pain medication for the above Addiction team evaluation Hold Suboxone as the patient did not take it for a while now DVT prophylaxis: Lovenox Need for inpaitnet: acute left upper extremity paraslsysis due to compressive brachial plexopathy, requiring IV steroid and may need intervention Quality Stroke Does the patient have a stroke diagnosis?: No VTE Prior VTE?: No VTE Risk Level:: Medical - low VTE Device Contraindication: Treatment Not Indicated VTE Drug Contraindication: Treatment Not Indicated
[2021-09-23] MEDS: Acetaminophen 325 MG TABLET 650 MG PO (09:56)
[2021-09-23] MEDS: ARIPiprazole 20 MG TABLET PO (09:56)
[2021-09-23] MEDS: OXcarbazepine 300 MG TABLET 600 MG PO ×2 (09:56→21:05)
[2021-09-23] MEDS: Amphetamine Mixed Salts 20 MG TABLET PO ×2 (09:56→21:05)
[2021-09-23 11:13] VITALS: BP 114/62; PULSE 90; RESP 18; TEMP 36.7; O2SAT 96
--- NOTE | 2021-09-23 11:36 | MHC.CM.PN ---
PATIENT CURRENTLY NOT WANTING TO PARTICIPATE IN ASSESSMENT QUESTIONS OR DISCUSSION OF M.O.O.N. CONTACT CARD AND OBSERVATION DOCUMENTATION LEFT BEDSIDE WITH PERMISSION. CASE MANAGEMENT AVAILABLE FOR ANY DC NEEDS DISCUSSION
--- NOTE | 2021-09-23 11:43 | P.PNADD_ITS ---
Subjective Subjective Date of Service: 09/23/21 Reason For Visit: Left Arm Pain/Swolling Interim History: Methadone 30mg this morning. Patient awake, alert engaged in converssation Tearful, reporting pain and burning in his left arm. Expressing frustration and fear that he can feel so little and unable to move it. Requesting medications to address discomfort Discussed methadone dose, patient would like to continue titration. 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 Patient verbalized understanding. Review of Systems Acute medical concerns: Yes Medical Review of Systems: unchanged Mental Status Exam Mental Status Exam Patient Appearance: Appropriate Patient Orientation: Person, Place, Time and Situation Level of Consciousness: Awake, Appropriate and Alert Patient Behavior: Appropriate Mood Description: Anxious Affect Description: Fearful and Anxious Patient Cognition Impaired: No Judgement: Fair Diagnostics Vital Signs (24Hr): Vital Signs - 24 hr 09/22/21 15:36 09/22/21 19:54 09/22/21 23:45 Temperature 97.7 F 97.5 F 96.8 F Pulse Rate 87 84 92 Respiratory Rate 19 17 15 Blood Pressure 140/72 H 137/69 126/65 Pulse Oximetry 96 97 95 09/23/21 04:00 09/23/21 07:22 09/23/21 11:13 Temperature 97.5 F 98.3 F 98.0 F Pulse Rate 89 83 90 Respiratory Rate 16 17 18 Blood Pressure 124/67 123/66 114/62 Pulse Oximetry 96 93 96 BMI result Body Mass Index 26.2 Labs Results: 09/22/21 06:04 09/23/21 05:50 Labs: Laboratory Results - last 48 hr 09/22/21 09/22/21 09/22/21 00:49 00:49 00:49 WBC 11.7 H RBC 4.90 Hgb 14.4 Hct 43.2 MCV 88.2 MCH 29.4 MCHC 33.3 RDW 13.2 Plt Count 369 MPV 8.6 L Immature Gran % (Auto) 0.3 Neut % (Auto) 73.8 H Lymph % (Auto) 15.9 L [place] % (Auto) 9.5 Eos % (Auto) 0.3 Baso % (Auto) 0.2 Lymph # (Auto) 1.9 [place] # (Auto) 1.1 Eos # (Auto) 0.0 Baso # (Auto) 0.0 Abs Immat Gran (auto) 0.03 Absolute Neuts (auto) 8.7 H Absolute Nucleated RBC 0.000 Nucleated RBC % (auto) 0.0 Sodium 136 Potassium 4.5 Chloride 101 Carbon Dioxide 24 Anion Gap 16 BUN 14 Creatinine 0.88 Estim Creat Clear Calc 117.5 Estimated GFR > 60 Random Glucose 130 H D Calcium 9.5 Magnesium 2.3 Total Bilirubin 1.0 Direct Bilirubin 0.5 AST 176 H ALT 132 H Alkaline Phosphatase 87 Total Creatine Kinase 7996 H Total Protein 7.0 Albumin 3.8 Urine Color Urine Appearance Urine pH Ur Specific [place] Urine Protein Urine Glucose (UA) Urine Ketones Urine Blood Urine Nitrite Ur Leukocyte Esterase Urine RBC Urine WBC Ur Squamous Epith Cells Urine Bacteria Urine Opiates Screen Urine Fentanyl Screen Ur Barbiturates Screen Ur Phencyclidine Scrn Ur Amphetamines Screen U Benzodiazepines Scrn Urine Cocaine Screen U Marijuana (THC) Screen Ethyl Alcohol < 10 COVID-19 (MADELEINE) COVID-19 [employer] 09/22/21 09/22/21 09/22/21 03:10 05:09 05:09 WBC RBC Hgb Hct MCV MCH MCHC RDW Plt Count MPV Immature Gran % (Auto) Neut % (Auto) Lymph % (Auto) [place] % (Auto) Eos % (Auto) Baso % (Auto) Lymph # (Auto) [place] # (Auto) Eos # (Auto) Baso # (Auto) Abs Immat Gran (auto) Absolute Neuts (auto) Absolute Nucleated RBC Nucleated RBC % (auto) Sodium Potassium Chloride Carbon Dioxide Anion Gap BUN Creatinine Estim Creat Clear Calc Estimated GFR Random Glucose Calcium Magnesium Total Bilirubin Direct Bilirubin AST ALT Alkaline Phosphatase Total Creatine Kinase Total Protein Albumin Urine Color YELLOW Urine Appearance CLEAR Urine pH 6.5 Ur Specific [place] 1.010 Urine Protein NEG Urine Glucose (UA) NEG Urine Ketones 5 Urine Blood TRACE Urine Nitrite NEG Ur Leukocyte Esterase NEG Urine RBC 1-4 Urine WBC 1-4 Ur Squamous Epith Cells 1+ Urine Bacteria 1+ Urine Opiates Screen POSITIVE H Urine Fentanyl Screen POSITIVE H Ur Barbiturates Screen Not Detected Ur Phencyclidine Scrn Not Detected Ur Amphetamines Screen Not Detected U Benzodiazepines Scrn POSITIVE H Urine Cocaine Screen POSITIVE H U Marijuana (THC) Screen POSITIVE H Ethyl Alcohol COVID-19 (MADELEINE) Negative COVID-19 [employer] See Note 09/22/21 09/22/21 09/23/21 06:04 06:04 05:50 WBC 9.0 RBC 4.59 L Hgb 13.7 L Hct 40.5 L MCV 88.2 MCH 29.8 MCHC 33.8 RDW 13.2 Plt Count 346 MPV 8.6 L Immature Gran % (Auto) 0.2 Neut % (Auto) 70.1 Lymph % (Auto) 18.4 L [place] % (Auto) 10.6 Eos % (Auto) 0.4 Baso % (Auto) 0.3 Lymph # (Auto) 1.7 [place] # (Auto) 1.0 Eos # (Auto) 0.0 Baso # (Auto) 0.0 Abs Immat Gran (auto) 0.02 Absolute Neuts (auto) 6.3 Absolute Nucleated RBC 0.000 Nucleated RBC % (auto) 0.0 Sodium 135 136 Potassium 3.9 4.1 Chloride 103 104 Carbon Dioxide 25 25 Anion Gap 11 L 11 L BUN 10 7 L Creatinine 0.80 0.78 Estim Creat Clear Calc 129.2 132.5 Estimated GFR > 60 > 60 Random Glucose 111 195 H D Calcium 8.8 D 9.2 Magnesium Total Bilirubin Direct Bilirubin AST ALT Alkaline Phosphatase Total Creatine Kinase 6326 H 3462 H D Total Protein Albumin Urine Color Urine Appearance Urine pH Ur Specific [place] Urine Protein Urine Glucose (UA) Urine Ketones Urine Blood Urine Nitrite Ur Leukocyte Esterase Urine RBC Urine WBC Ur Squamous Epith Cells Urine Bacteria Urine Opiates Screen Urine Fentanyl Screen Ur Barbiturates Screen Ur Phencyclidine Scrn Ur Amphetamines Screen U Benzodiazepines Scrn Urine Cocaine Screen U Marijuana (THC) Screen Ethyl Alcohol COVID-19 (MADELEINE) COVID-19 [facility] Radiology Impressions: ITS Impressions Head CT 09/22/21 00:17 IMPRESSION: No acute intracranial pathology. Head/Neck CTA 09/22/21 01:45 IMPRESSION: 1. No acute vascular abnormality identified in the head or neck. 2. Soft tissue swelling in the left zygomatic and supraclavicular regions. Chest MRI 09/22/21 18:14 Impression: There is significant soft tissue edema and enhancement with epicenter in the left supraclavicular region. This edema and abnormal enhancement involves the scalene muscles and left rhomboid muscle posteriorly. Although the signal does directly abut the clavicle and first rib I do not appreciate any acute bony destructive lesion. Unfortunately the brachial plexus nerve roots are unable to be from this extensive signal abnormality. In the acute setting, infectious etiology/phlegmonous change would be suspected. I do not appreciate any discrete drainable abscess. Posttraumatic edema and/or evolving hematoma could have a similar appearance and should be clinically correlated. Of note there is milder edema seen in the contralateral supraclavicular fossa on the large [id number] coronal images. Medications Medications Current Medications Acetaminophen (Acetaminophen 325 Mg Tablet) 650 mg PO Q6H PRN PRN Reason: Pain, Mild (Pain Scale 1-3) Last Admin: 09/23/21 09:56 Dose: 650 mg Documented by: Alprazolam (Alprazolam 0.5 Mg Tablet) 1 mg PO QID [facility] Last Admin: 09/23/21 06:41 Dose: 1 mg Documented by: Amphetamine/Dextroamphetamine (Amphetamine Mixed Salts 20 Mg Tablet) 20 mg PO BID [facility] Last Admin: 09/23/21 09:56 Dose: 20 mg Documented by: Aripiprazole (Aripiprazole 20 Mg Tablet) 20 mg PO DAILY [facility] Last Admin: 09/23/21 09:56 Dose: 20 mg Documented by: Docusate Sodium (Docusate Sodium 100 Mg Capsule) 100 mg PO DAILY PRN PRN Reason: Constipation Hydromorphone HCl (Hydromorphone Hcl 0.5 Mg/0.5 Ml Syringe) 0.5 mg IVPUSH Q4H PRN; Protocol PRN Reason: pain 7-10 Lactated Ringer's (Lr) 1,000 mls @ 125 mls/hr IVCONT .Q8H [facility] Last Admin: 09/23/21 09:57 Dose: Not Given Documented by: Methylprednisolone Sodium Succinate 1,000 mg/ Sodium Chloride 66 mls @ 66 mls/hr IV DAILY@2000 [facility] Last Infusion: 09/22/21 22:19 Dose: Infused Documented by: Methadone HCl (Methadone Hcl 20 Mg/2 Ml Oral.Conc) 30 mg PO DAILY [facility] Last Admin: 09/23/21 06:41 Dose: 30 mg Documented by: Ondansetron HCl (Ondansetron Hcl 4 Mg/2 Ml Vial) 4 mg IVPUSH Q8H PRN PRN Reason: Nausea and Vomiting Oxcarbazepine (Oxcarbazepine 300 Mg Tablet) 600 mg PO BID [facility] Last Admin: 09/23/21 09:56 Dose: 600 mg Documented by: Prazosin HCl (Prazosin Hcl 5 Mg Capsule) 10 mg PO BEDTIME [facility]; Protocol Last Admin: 09/22/21 22:18 Dose: 10 mg Documented by: Sodium Chloride (0.9 % Sodium Chloride Flush 3 Ml Syringe) 3 ml IVFLUSH QSHIFT [facility] Last Admin: 09/23/21 09:59 Dose: Not Given Documented by: Allergies Allergies Allergy/AdvReac Type Severity Reaction Status Date / Time morphine Allergy Itching Verified 01/12/21 17:49 Assessment & Plan Assessment & Plan (1) Opioid use disorder, severe, dependence: Status: Acute Code(s): F11.20 - Opioid dependence, uncomplicated Assessment and Plan: * methadone 10mg later today (total of 40mg today) * methadone 45mg tomorrow morning * Notified attending regarding patients pain and discomfort. Pain medications appropriate given opioid tolerance, continue to monitor for sedation and hold doses if necessary * RSRN to send referral to [facility] as thi sis patient's preference based on location * will continue to follow I spent ___20___ minutes with the patient and/or on the patient floor today, greater than?50% of which was spent counseling/coordinating care.
[2021-09-23] MEDS: HYDROmorphone HCl 0.5 MG/0.5 ML SYRINGE IVPUSH (12:08)
--- NOTE | 2021-09-23 13:10 | MHC.RECOVRN ---
Pts referral has been sent to [facility], as requested by pt.
[2021-09-23 15:31] VITALS: BP 133/65; PULSE 97; RESP 18; TEMP 37.2; O2SAT 96
--- NOTE | 2021-09-23 16:31 | PM.EVENT ---
Event Note Date of Service: 09/23/21 Event Note: Patient reevaluated again, he continues to have pain in the arm and not able to move, he has normal coloration to the entire left upper limb, there is some swelling at the level deltoid and shoulder area but not tense.. He has normal radial and ulnar pulses.. Discussed with Ortho and no indication for procedure. CPK levels are trending down, movement in the arm maybe impaired by pain.. Adjust pain meds for comfort and continue following CPK level which at this point along with normal pulses does not point compartmental syndrome
[2021-09-23] MEDS: methADONE HCl 20 MG/2 ML ORAL.CONC 10 MG PO (16:38)
[2021-09-23] MEDS: oxyCODONE HCl Immed Release 5 MG TABLET 10 MG PO (18:36)
[2021-09-23 19:35] VITALS: BP 149/75; PULSE 82; RESP 18; TEMP 37.1; O2SAT 96
[2021-09-23] MEDS: HYDROmorphone HCl 0.5 MG/0.5 ML SYRINGE 1 MG IVPUSH (21:04)
[2021-09-23] MEDS: methylPREDNISolone Sod Succ 1,000 MG in 0.9 % Sodium Chloride 50 ML 66 MG IV (21:04)
[2021-09-23] MEDS: Prazosin HCL 5 MG CAPSULE 10 MG PO (21:05)
[2021-09-23] MEDS: 0.9 % Sodium Chloride Flush 3 ML SYRINGE IVFLUSH (21:06)
[2021-09-23 23:31] VITALS: BP 119/62; PULSE 93; RESP 16; TEMP 36.2; O2SAT 93
[2021-09-24] MEDS: HYDROmorphone HCl 0.5 MG/0.5 ML SYRINGE 1 MG IVPUSH ×5 (01:21→20:21)
[2021-09-24] MEDS: Lactated Ringers 1,000 ML 100 ML IVCONT ×2 (01:21→06:20)
[2021-09-24] MEDS: oxyCODONE HCl Immed Release 5 MG TABLET 10 MG PO ×4 (02:31→21:18)
[2021-09-24 02:59] VITALS: BP 132/74; PULSE 88; RESP 18; TEMP 36.7; O2SAT 95
--- NOTE | 2021-09-24 03:15 | PC.NURSE ---
Dr. Juarez from [facility] placed an ultrasound guided IV on the patient
[2021-09-24 07:43] VITALS: BP 136/73; PULSE 93; RESP 17; TEMP 36.4; O2SAT 96
[2021-09-24] MEDS: OXcarbazepine 300 MG TABLET 600 MG PO ×2 (07:54→20:20)
[2021-09-24] MEDS: methADONE HCl 20 MG/2 ML ORAL.CONC 40 MG PO (07:54)
[2021-09-24] MEDS: ALPRAZolam 0.5 MG TABLET 1 MG PO ×4 (07:54→20:20)
[2021-09-24] MEDS: ARIPiprazole 20 MG TABLET PO (07:54)
[2021-09-24] MEDS: Amphetamine Mixed Salts 20 MG TABLET PO ×2 (07:55→20:20)
--- NOTE | 2021-09-24 09:37 | PM.CNGS ---
History of Present Illness Consult details Consult date: 09/24/21 Narrative: Complex 36-year-old gentleman presents for evaluation regarding inability to move his left upper extremity. There was initially concern of that arm as he was unable to move it. He reports that it was after use of drugs including heroin that the patient fell asleep on that left arm. He was unable to move that arm and that is when he presented to the hospital. He at the time of my examination states that the left arm was quite painful he was unable to move and he was quite distraught over the whole situation. He has been seen and evaluated by Orthopedics and Neurology as well. Review of Systems Review of Systems: Yes all other systems are reviewed and are negative Constitutional: Constitutional: Reports no additional constitutional complaints ENT: Reports Normal hearing present Cardiovascular: Cardiovascular: Denies chest pain, Denies chest pain at rest, Denies chest pain with activity and Denies pedal edema Respiratory: Respiratory: Denies cough Gastrointestinal: Gastrointestinal: Denies abdominal pain Musculoskeletal: Musculoskeletal: Denies abnormal gait, Denies muscle cramps, Reports radiating pain into limb and Reports stiffness Integumentary/Breasts: Skin/Breast: Denies skin ulcer and Denies wounds Neurologic: Reports Normal hearing present and Denies abnormal gait Psychiatric: Psychiatric: Reports no additional psychiatric complaints PMFSH Past Medical History Medical History (Updated 09/22/21 @ 23:03 by Ellis Ennis MD) ADHD Anxiety Bipolar 1 disorder Depression IV drug user No known health problems Paralysis of left upper extremity Family History Family History Other No family history of coronary artery disease Social History Social History Household Members: Other Housing: Homeless Do you presently have visiting nurse or other home services: No Alcohol intake: current Alcohol intake frequency: does not drink Patient Tobacco Use Status: Current everyday Tobacco user Tobacco use type: Cigarette Cigarette Packs Per Day: 0.5 Cigarettes Per Day: 10.0 Substance Use Type: Crack/Cocaine and Heroin service: No Current occupational status: employed Meds Allergies Allergy/AdvReac Type Severity Reaction Status Date / Time morphine Allergy Itching Verified 01/12/21 17:49 Active Medications: Current Medications Acetaminophen (Acetaminophen 325 Mg Tablet) 650 mg PO Q6H PRN PRN Reason: Pain, Mild (Pain Scale 1-3) Last Admin: 09/23/21 09:56 Dose: 650 mg Documented by: Alprazolam (Alprazolam 0.5 Mg Tablet) 1 mg PO QID [facility] Last Admin: 09/24/21 07:54 Dose: 1 mg Documented by: Amphetamine/Dextroamphetamine (Amphetamine Mixed Salts 20 Mg Tablet) 20 mg PO BID [facility] Last Admin: 09/24/21 07:55 Dose: 20 mg Documented by: Aripiprazole (Aripiprazole 20 Mg Tablet) 20 mg PO DAILY [facility] Last Admin: 09/24/21 07:54 Dose: 20 mg Documented by: Docusate Sodium (Docusate Sodium 100 Mg Capsule) 100 mg PO DAILY PRN PRN Reason: Constipation Hydromorphone HCl (Hydromorphone Hcl 0.5 Mg/0.5 Ml Syringe) 1 mg IVPUSH Q4H PRN; Protocol PRN Reason: pain 7-10 Last Admin: 09/24/21 06:17 Dose: 1 mg Documented by: Methylprednisolone Sodium Succinate 1,000 mg/ Sodium Chloride 66 mls @ 66 mls/hr IV DAILY@1999 [facility] Last Infusion: 09/23/21 22:19 Dose: Infused Documented by: Methadone HCl (Methadone Hcl 20 Mg/2 Ml Oral.Conc) 40 mg PO DAILY [facility] Last Admin: 09/24/21 07:54 Dose: 40 mg Documented by: Ondansetron HCl (Ondansetron Hcl 4 Mg/2 Ml Vial) 4 mg IVPUSH Q8H PRN PRN Reason: Nausea and Vomiting Oxcarbazepine (Oxcarbazepine 300 Mg Tablet) 600 mg PO BID [facility] Last Admin: 09/24/21 07:54 Dose: 600 mg Documented by: Oxycodone HCl (Oxycodone Hcl Immed Release 5 Mg Tablet) 10 mg PO Q6H PRN PRN Reason: Pain, Severe (Pain Scale 7-10) Last Admin: 09/24/21 08:34 Dose: 10 mg Documented by: Prazosin HCl (Prazosin Hcl 5 Mg Capsule) 10 mg PO BEDTIME [facility]; Protocol Last Admin: 09/23/21 21:05 Dose: 10 mg Documented by: Sodium Chloride (0.9 % Sodium Chloride Flush 3 Ml Syringe) 3 ml IVFLUSH QSHIFT [facility] Last Admin: 09/24/21 07:59 Dose: Not Given Documented by: Home Medications Medication Instructions Recorded Confirmed Last Taken Type alprazolam 1 mg tablet 1 tab PO QID 01/13/21 09/22/21 09/20/21 History aripiprazole 20 mg tablet 1 tab PO DAILY 01/13/21 09/22/21 09/20/21 History buprenorphine 12 mg-naloxone 3 mg 1 strip SUBLINGUAL BID 01/13/21 09/22/21 09/20/21 History sublingual film (Suboxone) ibuprofen 800 mg tablet 1 tab PO TID PRN 01/13/21 09/22/21 09/20/21 History naloxone 4 mg/actuation nasal 1 spray INTRANASAL ONCE 01/13/21 09/22/21 09/20/21 History spray (Narcan) oxcarbazepine 600 mg tablet 600 mg PO BID 01/13/21 09/22/21 09/20/21 History prazosin 5 mg capsule 2 cap PO BEDTIME 01/13/21 09/22/21 09/20/21 History dextroamphetamine-amphetamine 20 20 mg PO BID 09/22/21 09/22/21 09/20/21 History mg tablet Physical Exam Vital Signs: Vital Signs: Last Vital Signs Temp 97.5 F 09/24/21 07:43 Pulse 93 09/24/21 07:43 Resp 17 09/24/21 07:43 BP 136/73 09/24/21 07:43 Pulse Ox 96 09/24/21 07:43 BMI result Body Mass Index 26.2 Const: General: cooperative, healthy appearing and comfortable Orientation/consciousness: oriented to person, oriented to place and oriented to time HEENT: Head: Yes normal to inspection Neck: Neck: Yes normal visual inspection Carotids: no bruits Chest: Chest palpation & inspection: normal inspection of the chest Resp: Effort & Inspection: normal respiratory effort and able to speak in complete sentences Auscultation: clear to auscultation bilaterally, no crackles, no rales, no rhonchi and no wheezes Cardio: Rate: regular rate Rhythm: regular rhythm Heart sounds: S1 normal heart sound present and S2 normal heart sound present Bruits: no carotid bruits Peripheral pulses: Peripheral pulses 2+ throughout GI: Inspection: Yes normal to inspection Skin: Wounds: no wounds Hair: normal Neuro: General: oriented to person, oriented to place and oriented to time Cranial nerves: Yes CN's II-XII intact bilaterally and Yes Normal hearing present Cognition (Neuro): normal cognition Motor exam (neuro): Motor abnormalites present (Unable to move left arm from shoulder on down.) Sensory Exam: Upper extremity sensory exam abnormal (No sensation left upper extremity below elbow) Extrem: Other: venous exam: No significant superficial varicosities or spider telangiectasias, minimal edema General: No clubbing, No cyanosis and No edema Psych: Appearance: grossly normal Mental Status: mental status grossly normal Speech and movement: Normal speech and movement present Results Labs Result diagrams: 09/22/21 06:04 09/23/21 05:50 Labs: Abnormal lab results 09/24/21 Range/Units 05:49 Total Creatine Kinase 3449 H (38-174) U/L Cardiac Enzymes 09/24/21 Range/Units 05:49 Total Creatine Kinase 3449 H (38-174) U/L Urine 09/22/21 Range/Units 05:09 Urine Color YELLOW Urine Appearance CLEAR Urine pH 6.5 (5.0-8.0) Ur Specific [place] 1.010 (1.005-1.025) Urine Protein NEG (NEG-TRACE) MG/DL Urine Glucose (UA) NEG (NEG) MG/DL All other labs normal. Assessment and Plan (1) Paralysis of left upper extremity: Status: Acute Plan In short the patient has inability to move the left upper extremity. I am able to appreciate palpable brachial radial and ulnar pulses. All compartments do feel soft. CK has trended down. Upon examination he does have some sensation down to the level of the elbow. No motor. When forced to he does have some slight function of that left thumb. Reports a fair amount of pain as well. I do agree that this may be more compression from the brachial plexus and ?Wednesday night palsy.? Would continue conservative management for now inclusive of pain control and agree with steroids. In addition would avoid BP is IVs and blood draws from the left upper extremity. We will follow on an as-needed basis. Thank you for allowing us to assist in this patient's care. Procedures Date of Service Date of Service: 09/24/21
--- NOTE | 2021-09-24 10:06 | P.PNIM_ITS ---
Subjective Subjective Date of Service: 09/24/21 Interval History: Seen in f/u for compressive brachial plexopathy and unable to move the left arm Interval history:He now has increased sensation and is experiencing small movement in the fingers, Something he could do yesterday. He is still experience significant pain in the arm also. Review of Systems no fever left arm weakness Physical Exam Vital Signs: Vital Signs: Last Vital Signs Temp 97.5 F 09/24/21 07:43 Pulse 93 09/24/21 07:43 Resp 17 09/24/21 07:43 BP 136/73 09/24/21 07:43 Pulse Ox 96 09/24/21 07:43 BMI result Body Mass Index 26.2 Const: Other: General: AO X 3, no acute distress Resp: CTA bilateral CVS: S1,S2,RRR GI: +BS, NT, no distention Skin: No rash Neuro: Paralysed left, However is able to make small movement in the fingers.. he has full pulses in the radial and ulnar area. This skin coloration is normal to the entire left arm and the arm is not tense Psych: appropriate affect Objective Data Active Medications Acetaminophen (Acetaminophen 325 Mg Tablet) 650 mg PO Q6H PRN PRN Reason: Pain, Mild (Pain Scale 1-3) Last Admin: 09/23/21 09:56 Dose: 650 mg Documented by: JONAH Alprazolam (Alprazolam 0.5 Mg Tablet) 1 mg PO QID [facility] Last Admin: 09/24/21 07:54 Dose: 1 mg Documented by: JONAH Amphetamine/Dextroamphetamine (Amphetamine Mixed Salts 20 Mg Tablet) 20 mg PO BID [facility] Last Admin: 09/24/21 07:55 Dose: 20 mg Documented by: JONAH Aripiprazole (Aripiprazole 20 Mg Tablet) 20 mg PO DAILY [facility] Last Admin: 09/24/21 07:54 Dose: 20 mg Documented by: JONAH Docusate Sodium (Docusate Sodium 100 Mg Capsule) 100 mg PO DAILY PRN PRN Reason: Constipation Hydromorphone HCl (Hydromorphone Hcl 0.5 Mg/0.5 Ml Syringe) 1 mg IVPUSH Q4H PRN; Protocol PRN Reason: pain 7-10 Last Admin: 09/24/21 06:17 Dose: 1 mg Documented by: TOREY Methylprednisolone Sodium Succinate 1,000 mg/ Sodium Chloride 66 mls @ 66 mls/hr IV DAILY@1999 [facility] Last Infusion: 09/23/21 22:19 Dose: 0 mls/hr Documented by: RORO Methadone HCl (Methadone Hcl 20 Mg/2 Ml Oral.Conc) 40 mg PO DAILY [facility] Last Admin: 09/24/21 07:54 Dose: 40 mg Documented by: JONAH Ondansetron HCl (Ondansetron Hcl 4 Mg/2 Ml Vial) 4 mg IVPUSH Q8H PRN PRN Reason: Nausea and Vomiting Oxcarbazepine (Oxcarbazepine 300 Mg Tablet) 600 mg PO BID [facility] Last Admin: 09/24/21 07:54 Dose: 600 mg Documented by: JONAH Oxycodone HCl (Oxycodone Hcl Immed Release 5 Mg Tablet) 10 mg PO Q6H PRN PRN Reason: Pain, Severe (Pain Scale 7-10) Last Admin: 09/24/21 08:34 Dose: 10 mg Documented by: JONAH Prazosin HCl (Prazosin Hcl 5 Mg Capsule) 10 mg PO BEDTIME [facility]; Protocol Last Admin: 09/23/21 21:05 Dose: 10 mg Documented by: TOREY Sodium Chloride (0.9 % Sodium Chloride Flush 3 Ml Syringe) 3 ml IVFLUSH QSHIFT [facility] Last Admin: 09/24/21 07:59 Dose: Not Given Documented by: JONAH Non-Admin Reason: IV Running Labs CBC & Chem 7: 09/22/21 06:04 09/23/21 05:50 Labs: Laboratory Results - last 24 hr 09/24/21 05:49 Total Creatine Kinase 3449 H Assessment and Plan (1) Paralysis of left upper extremity: Status: Acute (2) Compression of brachial plexus: Status: Acute Plan 35-year-old male with history of IV drug use presents to the hospital with complaints of left flu extremity redness, swelling, and pain # cellulitis of left lower extremity # Abscess secondary to IV drug injection Continue Zosyn and vancomycin MRI showed generalized soft tissue swelling but no fluid collection No cultures done given no fever or increased WBC at this point would not do cultures #Left upper extremity paralysis d/t compressive brachial plexopathy. -Neuro has advised steroid, need for decompression, has been evaluated by Surgery and Ortho--withn no indication for intervetion. -Multiple attemps made for transfer and not accepted due to no indication for surgery. he will probably improve over time and that should be followed by PT and occupational therapy. # IV drug user pain control with Dilaudid and Oxycodone Addiction team evaluation Hold Suboxone as the patient did not take it for a while now DVT prophylaxis: Lovenox Need for inpaitnet: acute left upper extremity paraslsysis due to compressive brachial plexopathy, requiring IV steroid and may need intervention and likely need for placement to rehab Quality Stroke Does the patient have a stroke diagnosis?: No VTE Prior VTE?: No VTE Risk Level:: Medical - low VTE Device Contraindication: Treatment Not Indicated VTE Drug Contraindication: Treatment Not Indicated
[2021-09-24 11:45] VITALS: BP 137/80; PULSE 73; RESP 18; TEMP 36.3; O2SAT 95
--- NOTE | 2021-09-24 12:41 | MHC.RECOVRN ---
Met with pt to follow up regarding methadone titration. Upon entering room, pt laying in bed, awake, alert, easily engaging in conversation. Pt reports increased sensation in arm and ability to move fingers. Pt tearful during conversation, reporting pain as well as fear regarding future mobility of arm. Pt requesting increase in pain medication doses. Pt also reporting anxiety and desire to increase Xanax dose. Pt states PCP in [place] has been his provider for 14 years and is able to speak with him if needed. Regarding methadone, pt reports increase has been helpful but continues to experience intense cravings. Pt would like to continue with titration. Pt denies other questions or concerns at this time. Discussed yadi Bradley APRN. Will continue to follow.
[2021-09-24 15:13] VITALS: BP 160/77; PULSE 90; RESP 18; TEMP 36.8; O2SAT 94
[2021-09-24 18:52] VITALS: BP 145/86; PULSE 73; RESP 18; TEMP 37; O2SAT 94
[2021-09-24] MEDS: Enoxaparin Sodium 40 MG/0.4 ML SYRINGE SUBCUT (20:19)
[2021-09-24] MEDS: Prazosin HCL 5 MG CAPSULE 10 MG PO (20:20)
[2021-09-24] MEDS: methylPREDNISolone Sod Succ 1,000 MG in 0.9 % Sodium Chloride 50 ML 66 MG IV (21:18)
[2021-09-24 23:42] VITALS: BP 124/64; PULSE 77; RESP 16; TEMP 36.6; O2SAT 95
[2021-09-25] VITALS (7 sets, daily range): BP systolic 130–150; BP diastolic 60–88; PULSE 63–77; RESP 16–18; TEMP 36.5–37.1; O2SAT 95–98
[2021-09-25] MEDS: HYDROmorphone HCl 0.5 MG/0.5 ML SYRINGE 1 MG IVPUSH ×2 (00:37→08:16)
[2021-09-25] MEDS: oxyCODONE HCl Immed Release 5 MG TABLET 10 MG PO (03:51)
[2021-09-25] MEDS: OXcarbazepine 300 MG TABLET 600 MG PO ×2 (08:15→21:59)
[2021-09-25] MEDS: ARIPiprazole 20 MG TABLET PO (08:15)
[2021-09-25] MEDS: Amphetamine Mixed Salts 20 MG TABLET PO ×2 (08:16→22:00)
[2021-09-25] MEDS: ALPRAZolam 0.5 MG TABLET 1 MG PO ×4 (08:16→21:59)
[2021-09-25] MEDS: methADONE HCl 20 MG/2 ML ORAL.CONC 50 MG PO (08:17)
[2021-09-25] MEDS: 0.9 % Sodium Chloride Flush 3 ML SYRINGE IVFLUSH (08:18)
--- NOTE | 2021-09-25 09:27 | P.PNIM_ITS ---
Subjective Subjective Date of Service: 09/26/21 Interval History: Seen in f/u for compressive brachial plexopathy and unable to move the left arm Interval history:He has more movement in the hand today compare to yesterday and yet complain of more pain Review of Systems unable to move left arm, pain in the left arm.. no fever Physical Exam Vital Signs: Vital Signs: Last Vital Signs Temp 97.7 F 09/25/21 07:58 Pulse 74 09/25/21 07:58 Resp 18 09/25/21 07:58 BP 150/88 H 09/25/21 07:58 Pulse Ox 97 09/25/21 07:58 BMI result Body Mass Index 26.2 Const: Other: General: AO X 3, no acute distress Resp: CTA bilateral CVS: S1,S2,RRR GI: +BS, NT, no distention Skin: No rash Neuro: Paralysed left, However is able to make more movement in the fingers.. he has full pulses in the radial and ulnar area. This skin coloration is normal to the entire left arm and the arm is not tense Psych: appropriate affect Objective Data Active Medications Acetaminophen (Acetaminophen 325 Mg Tablet) 650 mg PO Q6H PRN PRN Reason: Pain, Mild (Pain Scale 1-3) Last Admin: 09/23/21 09:56 Dose: 650 mg Documented by: JONAH Alprazolam (Alprazolam 0.5 Mg Tablet) 1 mg PO QID [facility] Last Admin: 09/25/21 08:16 Dose: 1 mg Documented by: FLYNN Amphetamine/Dextroamphetamine (Amphetamine Mixed Salts 20 Mg Tablet) 20 mg PO BID [facility] Last Admin: 09/25/21 08:16 Dose: 20 mg Documented by: FLYNN Aripiprazole (Aripiprazole 20 Mg Tablet) 20 mg PO DAILY [facility] Last Admin: 09/25/21 08:15 Dose: 20 mg Documented by: FLYNN Docusate Sodium (Docusate Sodium 100 Mg Capsule) 100 mg PO DAILY PRN PRN Reason: Constipation Enoxaparin Sodium (Enoxaparin Sodium 40 Mg/0.4 Ml Syringe) 40 mg SUBCUT Q24H [facility] Last Admin: 09/24/21 20:19 Dose: 40 mg Documented by: TOREY Hydromorphone HCl (Hydromorphone Hcl 0.5 Mg/0.5 Ml Syringe) 1 mg IVPUSH Q4H PRN; Protocol PRN Reason: pain 7-10 Last Admin: 09/25/21 08:16 Dose: 1 mg Documented by: FLYNN Hydromorphone HCl (Hydromorphone Hcl 4 Mg Tablet) 4 mg PO Q4H PRN PRN Reason: Pain, Severe (Pain Scale 7-10) Methylprednisolone Sodium Succinate 1,000 mg/ Sodium Chloride 66 mls @ 66 mls/hr IV DAILY@1999 [facility] Last Infusion: 09/24/21 22:44 Dose: 0 mls/hr Documented by: TOREY Methadone HCl (Methadone Hcl 20 Mg/2 Ml Oral.Conc) 50 mg PO DAILY [facility] Last Admin: 09/25/21 08:17 Dose: 50 mg Documented by: FLYNN Ondansetron HCl (Ondansetron Hcl 4 Mg/2 Ml Vial) 4 mg IVPUSH Q8H PRN PRN Reason: Nausea and Vomiting Oxcarbazepine (Oxcarbazepine 300 Mg Tablet) 600 mg PO BID [facility] Last Admin: 09/25/21 08:15 Dose: 600 mg Documented by: FLYNN Prazosin HCl (Prazosin Hcl 5 Mg Capsule) 10 mg PO BEDTIME [facility]; Protocol Last Admin: 09/24/21 20:20 Dose: 10 mg Documented by: TOREY Sodium Chloride (0.9 % Sodium Chloride Flush 3 Ml Syringe) 3 ml IVFLUSH QSHIFT [facility] Last Admin: 09/25/21 08:18 Dose: 3 ml Documented by: FLYNN Labs CBC & Chem 7: 09/22/21 06:04 09/23/21 05:50 Assessment and Plan (1) Paralysis of left upper extremity: Status: Acute (2) Compression of brachial plexus: Status: Acute Plan 35-year-old male with history of IV drug use presents to the hospital with complaints of left flu extremity redness, swelling, and pain # cellulitis of left lower extremity # Abscess secondary to IV drug injection Continue Zosyn and vancomycin MRI showed generalized soft tissue swelling but no fluid collection No cultures done given no fever or increased WBC at this point would not do cultures #Left upper extremity paralysis d/t compressive brachial plexopathy. -Neuro has advised steroid, need for decompression, has been evaluated by Surgery and Ortho--withn no indication for intervetion. -Multiple attemps made for transfer and not accepted due to no indication for surgery. he will probably improve over time and that should be followed by PT and occupational therapy. # IV drug user pain control with Dilaudid and Oxycodone Addiction team following No Suboxone as the patient has not been taking and DVT prophylaxis: Lovenox Need for inpaitnet: acute left upper extremity paraslsysis due to compressive brachial plexopathy, requiring IV steroid and may need intervention and likely need for placement to rehab Quality Stroke Does the patient have a stroke diagnosis?: No VTE Prior VTE?: No VTE Risk Level:: Medical - low VTE Device Contraindication: Treatment Not Indicated VTE Drug Contraindication: Treatment Not Indicated
--- NOTE | 2021-09-25 16:18 | PC.NURSE ---
LOST IV ACCESS THIS AM. DR TERESA AWARE. PT EXTREMELY DIFFICULT TO START IV. LAST IV WAS STARTED BY ME VIA US. dR TERESA CHANGED PAIN MED TO PO. ALSO STATED HE WOULD DC IV STEROIDS.
[2021-09-25] MEDS: Enoxaparin Sodium 40 MG/0.4 ML SYRINGE SUBCUT (19:30)
[2021-09-25] MEDS: Prazosin HCL 5 MG CAPSULE 10 MG PO (22:00)
[2021-09-26 03:10] VITALS: BP 128/61; PULSE 76; RESP 18; TEMP 36.6; O2SAT 96
[2021-09-26 08:00] VITALS: BP 146/75; PULSE 77; RESP 18; TEMP 36.9; O2SAT 97
[2021-09-26] MEDS: OXcarbazepine 300 MG TABLET 600 MG PO (09:12)
[2021-09-26] MEDS: ALPRAZolam 0.5 MG TABLET 1 MG PO ×2 (09:12→12:06)
[2021-09-26] MEDS: methADONE HCl 20 MG/2 ML ORAL.CONC 50 MG PO (09:12)
[2021-09-26] MEDS: ARIPiprazole 20 MG TABLET PO (09:12)
[2021-09-26] MEDS: Amphetamine Mixed Salts 20 MG TABLET PO (09:12)
--- NOTE | 2021-09-26 10:56 | P.PNVS_ITS ---
Subjective Subjective Date of Service: 09/26/21 Patient reports: no new complaints, feels better and still having pain Interval history: Complex 36-year-old gentleman presents for follow-up regarding immobility of the left upper extremity. Once again at this episode began after he fell asleep on the left arm for several hours after an episode with drugs. He was subsequently brought in and that left arm was completely immobile. At that time the arm and the compartments were relatively soft. He complained of a fair amount of pain. He had immobility from the shoulder joint on down. Physical Exam Vital Signs: Vital Signs: Last Vital Signs Temp 98.4 F 09/26/21 08:00 Pulse 77 09/26/21 08:00 Resp 18 09/26/21 08:00 BP 146/75 H 09/26/21 08:00 Pulse Ox 97 09/26/21 08:00 BMI result Body Mass Index 26.2 Const: General: cooperative, healthy appearing and no acute distress Orientation/consciousness: oriented to person, oriented to place and oriented to time HEENT: Head: Yes normal to inspection Neck: Carotids: no bruits Chest: Chest palpation & inspection: normal inspection of the chest Resp: Effort & Inspection: normal respiratory effort and able to speak in complete sentences Auscultation: clear to auscultation bilaterally Cardio: Rate: regular rate Heart sounds: S1 normal heart sound present and S2 normal heart sound present GI: Inspection: Yes normal to inspection Skin: General skin exam: no rashes or lesions noted Wounds: no wounds Neuro: Other: Left upper extremity he does have some movement in the shoulder now and he is able to make weak grasp with all digits General: oriented to person, oriented to place, oriented to time and CN's II-XI intact bilaterally Extrem: General: Yes normal to inspection, Yes full ROM and Yes no clubbing, cyanosis or edema Psych: Appearance: grossly normal and well kempt Speech and movement: Normal speech and movement present Affect: normal affect Progress Note: A&P Assessment and plan (1) Paralysis of left upper extremity: Status: Acute Assessment and Plan: In short patient has left upper extremity motor function appears to be slowly resolving. He does continue to have some pain but that does appear improved as well. He continues to have palpable brachial radial and ulnar pulses. All compartments are soft. I am not worried about a compartment syndrome nor arterial flow disease. I do agree with Neurology and Orthopedics that this is more of a nerve paralysis that will slowly resolve. We will follow on an as- needed basis. Thank you for allowing us to assist in his care. Time Spent With Patient Time: Total time spent is greater than 50% in coordination of care (as documented) at patient's floor/unit and/or counseling patient: Procedures Date of Service Date of Service: 09/26/21 Quality Stroke Does the patient have a stroke diagnosis?: No VTE Prior VTE?: No VTE Risk Level:: Medical - low VTE Device Contraindication: Treatment Not Indicated VTE Drug Contraindication: Treatment Not Indicated
[2021-09-26 11:31] VITALS: BP 151/94; PULSE 105; RESP 18; TEMP 37; O2SAT 96
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
[2021-09-26] MEDS: Acetaminophen 325 MG TABLET 650 MG PO (12:57)
--- NOTE | 2021-09-26 13:17 | P.DS_ITS ---
DS: Providers Provider Date of Service: 09/26/21 Date of admission: 09/22/21 05:17 Primary care physician: Waldo Merino MD Consults: 09/22/21 05:17 Consult to Neurology Routine Consulting Provider: [facility] Reason for consultation: arm paralysis Has provider been notified: No 09/22/21 11:57 Consult to Orthopedics Routine Consulting Provider: [facility] Reason for consultation: left arm/shoulder-possible compartment syn/rhabdomylysis Has provider been notified: No 09/22/21 14:57 Consult to Psychiatry Routine Consulting Provider: [facility] Reason for consultation: opoid use on subaxone Has provider been notified: No 09/24/21 07:01 Consult to Vascular Surgery Routine Consulting Provider: Ben Lu Reason for consultation: left arm paralysis, assess for vascular compromise DS: Diagnosis Discharge Diagnosis (1) Paralysis of left upper extremity: Status: Acute (2) Compression of brachial plexus: Status: Acute DS: Summary Hospital Course Hospital Course: Chief Complaint: Left arm paralysis 36-year-old male past medical history of polysubstance abuse who presents to the hospital with complaints of left arm paralysis.? Patient reports that he went on a binge drug use including cocaine and then went and slept from 06:00 to 20:00 the same day, he found himself sleeping on his left arm, and woke up with complete paralysis of his left arm.? Patient reports that he lost sensation as well as ability to move his arm completely.? His never had this experience before, reports no difficulty walking numbness tingling or weakness in his lower extremities, right extremity intact.? He has no slurred speech, no loss of vision or change in vision, no headache, and no numbness tingling on his face. Patient otherwise denies any, no shortness of breath, no abdominal pain nausea or vomiting, no diarrhea constipation, no urinary symptoms and no lower extremity edema.? On arrival to the ED patient hemodynamically stable no significant abnormal vitals Labs were significant for WBC count of 11.7, otherwise unremarkable. Hospital course: Essentially patient went on drug binge and slept on his arm for 12 to 18 hours and developped paralysis of the arm with compressive Brachialplexopathy. MRI showed swelling in the arm but no collection. Patient was evaluated by Neurology and initially recommended for some steroid. He was also evaluated by general surgery and Orthopedic surgery with no indication for intervention. He was also refer to Outside hospital including [facility], [facility], [facility] and was not accepted for transfer due to no indication for sugery. Neurology did recommend IV steroid initially. Over the couse of hospitalization has as gain movement in the had gradually, initialy he could not move the fingers at all but now is able to move up to the wrist but still limitted by pain. He has been evaluated by PT and OT and recommend for Sling and and outpatient OT and referal will be made. Initially also thought that he had cellulitis but present does not have cellulitis and his cultures have been negative # IV drug user--Addication medicine was following him and gave him resources to stop drug use. He will continue Methadone, and no subxoneas he was no longer on it Time Spent with Patient Time attestation: Total time spent providing and/or coordinating discharge services: Discharge coordination time: Greater than 30 minutes Quality: Safe Use of Opioids Does Pt have an Active Cancer Diagnosis on the Problem List?: No Quality: Stroke Does the patient have a stroke diagnosis?: No Physical Exam Vital Signs: Vital Signs: Last Vital Signs Temp 98.6 F 09/26/21 11:31 Pulse 105 H 09/26/21 11:31 Resp 18 09/26/21 11:31 BP 151/94 H 09/26/21 11:31 Pulse Ox 96 09/26/21 11:31 BMI result Body Mass Index 26.2 Discharge Plan Discharge Anticipated Discharge Date/Time: 09/26/21 13:17 Patient Disposition: Home, Self-Care Referrals: [facility] L[facility] [Other] - 1 Week ([email or web address] THIS WEBSITE MAY HAVE ADDITIONAL SHELTERS. ) [facility] [Other] - 1 Week (WALK IN [facility], PLEASE BE THERE EARLY, RECOVERY NURSE IS RECOMMENDING 7AM. YOU WILL NEED TO BRING YOUR LAST DOSE LETTER PLEASE TALK TO TUBE WRAPPER ABOUT HOUSING/[facility] OPTIONS) [facility] [Other] - 1 Week (OUTPATIENT OCCUPATIONAL THERAPY. PLEASE CALL AND SCHEDULE APPT. [phone]) Waldo Merino MD [Primary Care Provider] - 1 Week Occupational Rehab - [facility] [Outside] - 1 Week (Left arm paralysis) Discharge Medications: New oxycodone 10 mg tablet 10 mg PO Q6H PRN (Reason: pain (scale score 7-10)) Qty: 16 0RF Continued ibuprofen 800 mg tablet 1 tab PO TID PRN (Reason: Pain (Scale Score 1-3)) 0RF alprazolam 1 mg tablet 1 tab PO QID 0RF prazosin 5 mg capsule 2 cap PO BEDTIME 0RF oxcarbazepine 600 mg tablet 600 mg PO BID 0RF aripiprazole 20 mg tablet 1 tab PO DAILY 0RF buprenorphine-naloxone [Suboxone] 12-3 mg film 1 strip sublingual BID 0RF naloxone [Narcan] 4 mg/actuation spray,non-aerosol 1 spray intranasal ONCE 0RF dextroamphetamine-amphetamine 20 mg tablet 20 mg PO BID 0RF Diet: advance to usual diet Activity on Discharge: As tolerated Stand Alone Forms: Patient Portal Discharge page Care Plan Goals: Gain function of the left arm Health Concerns: left arm paralysis Plan of Treatment: Use sling and participate in therapy Assessment: As above
--- NOTE | 2021-09-26 15:10 | PC.NURSE ---
Pt discharged today. Left his belongings behind because he didnt want to take them with him, jacket and clothing,.
== END 2021-09-26 15:11 | disposition home or self-care (01) | DRG 48 ==
LOC: HO.ED 09-22 02:11 → HO.EDOVER 09-22 07:03 → HO.S3 09-22 22:13 → HO.EDOVER 12-11 11:14
PROVIDERS: Emergency Medicine; Internal Medicine; Admitting Provider Internal Medicine; Emergency Provider Emergency Medicine Emergency Medical Services; PCP Family Medicine; Visit Provider Internal Medicine
DX: G54.0 Brachial plexus disorders (principal); M62.82 Rhabdomyolysis; L03.116 Cellulitis of left lower limb; G56.32 Lesion of radial nerve, left upper limb; L02.414 Cutaneous abscess of left upper limb; G56.82 Other specified mononeuropathies of left upper limb; R74.8 Abnormal levels of other serum enzymes; F17.210 Nicotine dependence, cigarettes, uncomplicated; F11.20 Opioid dependence, uncomplicated; F14.20 Cocaine dependence, uncomplicated; F10.20 Alcohol dependence, uncomplicated; F31.9 Bipolar disorder, unspecified; Y90.0 Blood alcohol level of less than 20 mg/100 ml; F90.2 Attention-deficit hyperactivity disorder, combined type; F41.8 Other specified anxiety disorders; Z20.822 Contact with and (suspected) exposure to COVID-19; Z59.00 Homelessness unspecified; Z88.6 Allergy status to analgesic agent; Z79.899 Other long term (current) drug therapy
CPT/HCPCS: 36415; 70450; 70496; 70498; 71552; 80048; 80076; 80307; 81001; 82077; 82550; 83735; 85025; 87635; 96361; 96365; 96372; 96375; 96376; 97110; 97162; 97166; 99285; A9585; J1170; J1650; J2920; J2930; Q9967